=== PATIENT | male | born 1940 | race Caucasian/White ===

== ENCOUNTER → 2020-02-11 09:30 | Outpatient (CLI) | payer MEDICARE, OTHER, SELFPAY ==
--- NOTE | 2020-02-11 | DI.RAD.S_ITS ---
PROCEDURE: XR LUMBAR SPINE 2-3V INDICATIONS: M54.5 TECHNIQUE: 3 views of the lumbar spine were acquired. COMPARISON: [facility], , L-SPINE 2-3 VIEWS, 02/01/2007, 10:06. FINDINGS: Bones: No fracture or focal osseous destruction. Multilevel degenerative endplate sclerosis and spurring. Diffuse facet arthropathy. Moderate narrowing of L5-S1 disc space. There is mild narrowing of the remaining lumbar disc spaces. Dextroscoliosis centered at L2. Soft tissues: Scattered vascular calcifications seen in the aorta. IMPRESSION: Diffuse lumbar spondylosis and facet arthropathy, which is slightly progressed since the prior study. Interval progression in dextroscoliosis. Dictated by: Hermilo Sandhu M.D. on 02/11/2020 at 10:26 Approved by: Hermilo Sandhu M.D. on 02/11/2020 at 10:27
== END ==
PROVIDERS: Family Provider Family Medicine; PCP Student in an Organized Health Care Education/Training Program; Referring Provider Student in an Organized Health Care Education/Training Program; Visit Provider Student in an Organized Health Care Education/Training Program
DX: M54.5 Low back pain (principal); M47.816 Spondylosis without myelopathy or radiculopathy, lumbar region; M41.86 Other forms of scoliosis, lumbar region
CPT/HCPCS: 72100

== ENCOUNTER → 2020-10-31 10:07 | Outpatient (CLI) | payer MEDICARE, OTHER, SELFPAY ==
--- NOTE | 2020-10-31 10:14 | DI.RAD.S_ITS ---
PROCEDURE: XR CHEST 2V INDICATIONS: chest PAIN TECHNIQUE: 2 views of the chest were acquired. COMPARISON: None. FINDINGS: Surgical changes and devices: None. Lungs and pleura: Lungs are clear. No pleural effusions or pneumothorax. Mediastinum: Mediastinal contours are normal. Heart size is normal. Bones and chest wall: No suspicious bony abnormalities. Soft tissues appear unremarkable. IMPRESSION: No acute cardiopulmonary abnormality. Dictated by: Grant Dougherty M.D. on 10/31/2020 at 10:58 Approved by: Grant Dougherty M.D. on 10/31/2020 at 10:59
== END ==
PROVIDERS: PCP Student in an Organized Health Care Education/Training Program; Referring Provider Student in an Organized Health Care Education/Training Program; Visit Provider Student in an Organized Health Care Education/Training Program
DX: I20.9 Angina pectoris, unspecified (principal)
CPT/HCPCS: 71046

== ENCOUNTER → 2020-11-15 13:02 | Outpatient (CLI) | payer MEDICARE, OTHER, SELFPAY ==
[2020-11-15 14:29] LABS: COVID19 -Nasal RAPID Negative (Negative)
== END ==
PROVIDERS: PCP Student in an Organized Health Care Education/Training Program; Referring Provider Physician Assistant; Visit Provider Physician Assistant
DX: Z01.812 Encounter for preprocedural laboratory examination (principal); Z20.828 Contact with and (suspected) exposure to other viral communicable diseases
CPT/HCPCS: 87635; C9803

== ENCOUNTER → 2020-11-18 10:10 | Outpatient (CLI) | payer MEDICARE, OTHER, SELFPAY ==
--- NOTE | 2020-11-20 08:46 | DI.NM.S_ITS ---
DATE OF SERVICE: PROCEDURE: Pharmacological perfusion study. DATE OF STUDY: 11/18/2020 INDICATIONS: Chest discomfort with underlying hypertension and hyperlipidemia. RADIOPHARMACEUTICAL: 25.5 millicurie technetium-99m Myoview IV was injected at stress and 12.0 millicurie of technetium-99m Myoview IV was injected at rest. CARDIAC STRESS: The patient underwent exercise perfusion study under the supervision of an attending staff. The patient walked on Ean protocol for 6 minutes and 13 seconds, achieved 109 percent of target heart rate, mildly hypertensive blood pressure response. Baseline blood pressure 122/82. Peak blood pressure 162/100. The patient achieved 7 METS of workload and functional aerobic impairment of -18%. No chest pain during exercise. Baseline EKG revealed sinus rhythm. During exercise and recovery, patient had intermittent PVCs without any ventricular tachycardia. There were no obvious ischemic changes. RAW DATA: There was increased subdiaphragmatic activity. GATED STUDY: Resting LV ejection fraction 67 and stress LV ejection fraction 68%. Resting end-diastolic volume 122 mL. TID ratio 0.89, which is within normal limits. Lung/heart ratio 0.29, which is within normal limits. MYOCARDIAL PERFUSION SCAN: Stress supine, resting supine and stress prone images were compared to each other. The stress supine and resting supine images revealed large size, moderate to severely decreased perfusion of inferior wall extending into the inferior lateral wall, inferior apex, as well as basal inferior septum which got completely resolved during prone images suggestive of diaphragmatic tissue attenuation artifact. No convincing significant perfusion defect in the stress prone images. CONCLUSION: I will call this study likely a normal myocardial perfusion study with evidence of diaphragmatic tissue attenuation artifact which got resolved during prone images. Functional aerobic impairment -18%. Mildly hypertensive blood pressure response. No anginal symptoms. The patient has intermittent PVCs during exercise and recovery without any ventricular tachycardia. As far as perfusion scan is concerned, this is a low-risk myocardial perfusion scan. Jigar Leonardo - MADELEINE/natasha/ibeth doc#: [id number]/job#: [id number] dd: 11/18/2020 17:28:00 dt: 11/18/2020 18:45:00 DICTATING MD/COPIES TO: Kelsey Ann MD COPIES MNE: BONNY;
== END ==
PROVIDERS: PCP Student in an Organized Health Care Education/Training Program; Referring Provider Student in an Organized Health Care Education/Training Program; Visit Provider Student in an Organized Health Care Education/Training Program
DX: I20.9 Angina pectoris, unspecified (principal); R06.02 Shortness of breath
CPT/HCPCS: 78452; 93017; A9502

== ENCOUNTER → 2020-12-02 15:57 | Outpatient (CLI) | payer MEDICARE, OTHER, SELFPAY ==
--- NOTE | 2020-12-02 16:01 | DI.ECHO.S_ITS ---
[place] +---------+ [facility] +---------+ : : [address] : [address] : : : : [id number] : : : : Phone: [phone]+ Echocardiogram Report + + :Name: RAMÓN ROMERO Study Date: 12/02/2020 Height: 72 in : :[facility] Weight: 200 lb : : Gender: Male BSA: 2.1 m2 : :: 1940 Age: 80 yrs BP: 160/102 mmHg: :Reason For Study: ANGINA : :Ordering Physician: CARLEY, : :DRAKE Performed By: Essie Gutierrez : :Referring: DRAKE SPRINGER : + + Interpretation Summary Left ventricular systolic function appears normal with an estimated ejection fraction of 55 to 60% without any focal wall motion abnormality. Diastolic function could not be assessed. The right ventricle is at the upper limits of normal in size but has normal systolic function. Right ventricular systolic pressure cannot be estimated but CVP is likely around 3 mmHg. There is mild left atrial enlargement but normal right atrial size. The aortic valve appears anatomically normal but has mild aortic regurgitation. There are no other significant valvular abnormalities. The ascending aorta is mildly enlarged. The patient had heart rates of 48 to 64 bpm during the exam. Procedure: A two-dimensional transthoracic echocardiogram with color flow and Doppler was performed. The study quality was technically adequate. There is no prior echocardiogram noted for this patient. The patient was in sinus rhythm with heart rates between 49-64 bpm during the exam. The patient had occasional PVCs during the exam. Left Ventricle: The left ventricle is normal in size and wall thickness. Left ventricular systolic function appears normal without focal wall motion abnormalities. The ejection fraction is estimated to be 55-60%. Diastolic function could not be accurately assessed due to unobtainable data. Right Ventricle: The right ventricle is at the upper limits of normal in size. The right ventricular systolic function is normal. Atria: The left atrium is mildly dilated. Right atrial size is normal. There is no Doppler evidence for an interatrial shunt. Mitral Valve: The mitral valve is normal in structure and function. There is trace mitral regurgitation. Aortic Valve: The aortic valve is trileaflet. The aortic valve opens well. There is no aortic valve stenosis. There is mild aortic regurgitation. Tricuspid Valve: The tricuspid valve is normal in structure and function. There is trace tricuspid regurgitation. Pulmonary artery pressures cannot be estimated because of the lack of a measurable TR jet velocity but the IVC suggests a CVP of around 3 mmHg. Pulmonic Valve: The pulmonic valve leaflets are thin and pliable; valve motion is normal. There is trace pulmonic regurgitation. Great Vessels: The aortic root is normal size. The ascending aorta is mildly enlarged. The IVC is of normal diameter and collapses greater than 50% with a sniff. This suggests a low right atrial pressure of 3 mm Hg. Pericardium/ Pleura There is no pericardial effusion. There is no pleural effusion. MMode/2D Measurements & Calculations LVIDd: 4.8 cm LVOT diam: 2.2 cm LVIDs: 3.3 cm Ao root diam: 3.6 cm FS: 32.6 % asc Aorta Diam: 3.5 cm EPSS: 0.99 cm Ao Arch Diam (Prox Trans): 2.8 cm IVSd: 1.0 cm LVPWd: 0.90 cm LV orellana. diameter/BSA (cm/m^2): 2.3 LV sys. diameter/BSA (cm/m^2): 1.5 LA A2 area: 23.8 cm2 RA long axis: 6.2 cm LA A4 area: 24.8 cm2 RA area: 17.4 cm2 LA length (vol): 5.6 cm RA vol: 41.5 ml LA vol: 89.6 ml RA : 19.5 ml/m2 LA vol index: 42.1 ml/m2 IVC diam: 0.57 cm RVD1 (basal): 4.1 cm TAPSE: 2.6 cm Doppler Measurements & Calculations Ao V2 max: 113.4 cm/sec LVOT Max Juan Pablo: 74.1 cm/sec Ao V2 mean: 85.0 cm/sec LV V1 max P.2 mmHg Ao max P.1 mmHg LV V1 VTI: 17.9 cm Ao mean P.1 mmHg CALIXTO(I,D): 2.4 cm2 Ao V2 VTI: 29.8 cm CALIXTO(V,D): 2.6 cm2 sev ratio: 0.60 CALIXTO indexed to BSA (cm^2/m^2): 1.1 Med Peak E' Juan Pablo: 5.8 cm/sec PA V2 max: 53.8 cm/sec Lat Peak E' Juan Pablo: 4.4 cm/sec PA V2 mean: 34.3 cm/sec PA mean P.58 mmHg PA pr(Accel): -1.5 mmHg [facility] 70.3 ml Reading Physician:05:54 PM
== END ==
PROVIDERS: PCP Student in an Organized Health Care Education/Training Program; Referring Provider Student in an Organized Health Care Education/Training Program; Visit Provider Student in an Organized Health Care Education/Training Program
DX: I20.9 Angina pectoris, unspecified (principal); I35.1 Nonrheumatic aortic (valve) insufficiency; I77.89 Other specified disorders of arteries and arterioles
CPT/HCPCS: 93306

== ENCOUNTER → 2023-01-12 12:05 | Outpatient (CLI) | payer MEDICARE, OTHER, SELFPAY ==
[2023-01-12 13:11] LABS: Influenza A - CEPHEID Flu A NEGATIVE (NEGATIVE); Influenza B - CEPHEID Flu B NEGATIVE (NEGATIVE); Respiratory Syncytial Virus Negative (Negative)
[2023-01-12 13:19] LABS: COVID-19 CEPHEID 4-PLEX PCR Negative (Negative)
== END ==
PROVIDERS: PCP Student in an Organized Health Care Education/Training Program; Visit Provider Nurse Practitioner Family
DX: R05.1 Acute cough (principal); Z20.822 Contact with and (suspected) exposure to COVID-19
CPT/HCPCS: 0241U

== ENCOUNTER → 2023-02-14 08:32 | Outpatient (ROUT) | payer MEDICARE, OTHER, SELFPAY ==
[2023-02-14 08:38] LABS: Hematocrit 40.6 % (41-53); Hemoglobin 13.2 g/dL (13.5-17.5); Mean Corpuscular HGB Conc 32.6 % (30-36); Mean Corpuscular Hemoglobin 28.9 PG (26-34); Mean Corpuscular Volume 88.7 fL (80-100); Platelet Count 340 X10^3/uL (150-400); Red Blood Cell Count 4.58 X10^6/uL (4.5-5.9); Red Cell Distribution Width 14.8 % (11.6-14.8); White Blood Cell Count 17.8 X10^3/uL (4.5-11.0)
[2023-02-14 08:39] LABS: Add Manual Diff / Slide Review YES
[2023-02-14 08:49] LABS: Neutrophils Absolute Manual 3916 /uL (3000-5900); RBC Morphology Normal Morphology; Total Cells Counted 100
[2023-02-14 09:29] LABS: Alanine Aminotransferase 27 IU/L (<50); Albumin 3.9 g/dL (3.5-5.0); Albumin Globulin Ratio 1.2 (1.0-2.8); Alkaline Phosphatase 86 U/L (38-126); Aspartate Aminotransferase 24 IU/L (17-59); Bilirubin Total 0.6 mg/dL (0.2-1.3); Blood Urea Nitrogen 24 mg/dL (9-20); Calcium 8.9 mg/dL (8.4-10.2); Carbon Dioxide 26 mmol/L (22-32); Chloride 105 mmol/L (98-107); Estimated Glomerular Filt Rate 50 mL/min (>60); Globulin 3.3 g/dL (1.7-4.1); Glucose 99 mg/dL (80-110); HEMOLYSIS < 15 (0-50); Lactate Dehydrogenase 177 U/L (120-246); Potassium 4.4 mmol/L (3.4-5.1); Sodium 139 mmol/L (137-145); Total Protein 7.2 g/dL (6.3-8.2)
== END ==
PROVIDERS: PCP Student in an Organized Health Care Education/Training Program; Visit Provider Internal Medicine Medical Oncology
DX: D72.829 Elevated white blood cell count, unspecified (principal)
CPT/HCPCS: 80053; 83615; 85007; 85025

== ENCOUNTER → 2023-06-15 06:57 | Outpatient (CLI) | payer MEDICARE, OTHER, SELFPAY ==
--- NOTE | 2023-06-15 | DI.ECHO.S_ITS ---
[place] +---------+ Hospital +---------+ : : [address] : : : : [address] : : : : [id number] : : : : Phone: [phone] : [phone] +---------+ Echocardiogram Report + + :Name: RAMÓN ROMERO Study Date: 06/15/2023 Height: 72 in : :[facility] ReadingLocation: Weight: 190 lb : : Gender: Male BSA: 2.1 m2 : :: 1940 Age: 82 yrs BP: 121/79 mmHg: :Reason For Study: B-CELL LYMPHOMA : :Ordering Physician: RENETTA, : :MAGDA Performed By: Essie Gutierrez : :Referring: MAGDA JACKSON : + + Interpretation Summary This is a limited echo for wall motion and left ventricular systolic function. Normal sinus rhythm. Normal LV size and wall thickness. Normal wall motion and LV systolic function. Ejection fraction is 60-65%. Peak gobal longitudinal strain average is 23% (normal) Compared to prior study December 02, 2020, no significant changes have occurred. Procedure: Images were not obtained from all of the standard acoustic windows due to the limited scope of the study. The study quality was technically adequate. Comparison is made with the echocardiogram of 12/02/2020. The patient was in sinus rhythm with heart rates between 67-80 bpm during the exam. Left Ventricle: The left ventricle is normal in size and wall thickness. The ejection fraction is estimated to be 60-65%. Left ventricular global longitudinal strain average is -23.3%. Great Vessels: The IVC is of normal diameter and collapses greater than 50% with a sniff. This suggests a low right atrial pressure of 3 mm Hg. Pericardium/ Pleura There is no pericardial effusion. There is no pleural effusion. MMode/2D Measurements & Calculations LVIDd: 4.9 cm IVC diam: 0.61 cm LVIDs: 3.3 cm FS: 32.2 % EPSS: 1.4 cm IVSd: 0.88 cm LVPWd: 0.94 cm LV orellana. diameter/BSA (cm/m^2): 2.3 LV sys. diameter/BSA (cm/m^2): 1.6 Electronically signed by: Barb Kwon M.D. on Reading Physician:06/15/2023 04:06 PM
== END ==
PROVIDERS: PCP Registered Nurse; Referring Provider Internal Medicine Hematology & Oncology; Visit Provider Internal Medicine Hematology & Oncology
DX: C85.10 Unspecified B-cell lymphoma, unspecified site (principal); R22.32 Localized swelling, mass and lump, left upper limb
CPT/HCPCS: 93307; 93356

== ENCOUNTER 2024-01-06 12:57 | Emergency (ER) | payer MEDICARE, OTHER, SELFPAY ==
[2024-01-06] VITALS (10 sets, daily range): BP systolic 105–133; BP diastolic 58–82; PULSE 35–75; RESP 16–22; TEMP 36.3; O2SAT 96–98; BMI 22.5
--- NOTE | 2024-01-06 13:08 | DI.RAD.S_ITS ---
PROCEDURE: XR CHEST 1V INDICATIONS: chest pain TECHNIQUE: One view of the chest was acquired. COMPARISON: [facility], CR, XR CHEST 2V, 10/31/2020, 10:17. FINDINGS: Surgical changes and devices: Port-A-Cath from right-sided approach extends into the right atrium.. Lungs and pleura: Lungs are clear. No pleural effusions or pneumothorax. Mediastinum: Mediastinal contours appear normal. Heart size is normal. Bones and chest wall: No suspicious bony lesions. Overlying soft tissues appear unremarkable. IMPRESSION: No acute cardiopulmonary abnormality is seen. Port-A-Cath tip within the right atrium. Mild asymmetric elevation of the right hemidiaphragm present to a slightly lesser degree in 2020. Dictated by: Jonathan Whiteside M.D. on 01/06/2024 at 13:54 Approved by: Jonathan Whiteside M.D. on 01/06/2024 at 13:55
--- NOTE | 2024-01-06 13:17 | ED.ARRPALP ---
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 Patient is a poor historian. Patient states that his chemotherapy drugs give him tremors and he has been on primidone for his tremors. He was at his doctor's office today because his tremors are continuous. He was incidentally noted to have a low heart rate and he was sent to the ER for evaluation. Patient can not remember the names of any of his medications, stating ?they are all in my chart at [facility]? Related Data Home Medications Medication Instructions Recorded Confirmed loteprednol etabonate 0.5 % eye 0.5 ea OP BID ##0 06/01/12 03/01/23 ointment (Lotemax) dorzolamide-timolol (PF) 2 %-0.5 % 1 drp OPHTH BID ##0 09/19/17 03/01/23 eye drops in a dropperette (Cosopt (PF)) levothyroxine 50 mcg tablet 88 mcg PO QAM ##0 09/19/17 03/01/23 lisinopril 20 mg tablet 20 mg PO QDAY ##0 09/19/17 03/01/23 primidone 50 mg tablet 150 mg PO DAILY 02/09/22 03/01/23 cyclosporine 0.05 % eye drops in a 1 drp ophthalmic (eye) BID 11/30/22 03/01/23 dropperette (Restasis) latanoprost 0.005 % eye drops 1 drp ophthalmic (eye) BID 11/30/22 03/01/23 terbinafine HCl 250 mg tablet 250 mg DAILY 03/01/23 03/01/23 apixaban 5 mg tablet (Eliquis) 5 mg PO BID 01/06/24 01/06/24 Previous Rx's Medication Instructions Recorded pravastatin 20 mg tablet 20 mg PO Q DAY #90 tabs 08/08/13 benzonatate 100 mg capsule 100 mg PO BID PRN cough #20 caps 01/12/23 Allergies Allergy/AdvReac Type Severity Reaction Status Date / Time No Known Drug Allergies Allergy Unverified 01/12/23 12:06 Review of Systems Review of Systems Narrative: Negative except as noted above Patient History Social History Smoking Status: Former smoker Smoking Status: Former smoker Exam Initial Vital Signs Initial Vital Signs: Vital Signs Temperature 97.4 F L 01/06/24 13:00 Pulse Rate 35 L 01/06/24 13:00 Respiratory Rate 16 01/06/24 13:00 Blood Pressure 130/74 01/06/24 13:00 Pulse Oximetry 98 01/06/24 13:00 Oxygen Delivery Method Room Air 01/06/24 13:00 Const: Awake, alert, no acute distress, nontoxic, appears chronically unwell Cardiac: regular rate, regular rhythm RESP: unlabored, clear bilaterally, no wheezing GI: Atraumatic, soft, nontender, nondistended, no rebound, no guarding MSK: Atraumatic, full range of motion, pulses equal Skin: Warm, Dry, intact, no rashes Neuro: AO x3, CN II-XII grossly intact, moves all extremities, mild bilateral upper extremity tremor Course Orders Ordered: ED Orders 01/06/24 13:08 XR chest 1V Stat EKG-12 Lead Stat 01/06/24 13:23 Complete Blood Count AUTO DIFF Stat Comprehensive Metabolic Panel Stat Lipase Stat Magnesium Stat PTT Partial Thromboplastin Yuan Stat Prothrombin Time INR Stat Troponin & CK Cardiac Panel Stat Vital Signs Vital signs: Vital Signs - 8 hr 01/06/24 13:00 01/06/24 13:23 01/06/24 13:30 Temperature 97.4 F L Pulse Rate 35 L 68 Respiratory Rate 16 21 Blood Pressure 130/74 133/82 Pulse Oximetry 98 98 Oxygen Delivery Method Room Air 01/06/24 13:30 01/06/24 14:00 01/06/24 14:00 Temperature Pulse Rate 67 68 Respiratory Rate 21 Blood Pressure 117/58 L Pulse Oximetry 98 97 Oxygen Delivery Method 01/06/24 14:30 01/06/24 14:30 01/06/24 15:00 Temperature Pulse Rate 63 66 Respiratory Rate 19 21 Blood Pressure 105/68 Pulse Oximetry 96 96 Oxygen Delivery Method 01/06/24 15:00 01/06/24 15:30 Temperature Pulse Rate 62 Respiratory Rate 21 Blood Pressure 112/58 L Pulse Oximetry 98 Oxygen Delivery Method MDM - Arrhythmia/Palpitations Differential Diagnosis Differential diagnosis: Likely palpitations, anxiety and artial fibrillation Lab Data 01/06/24 13:23 01/06/24 13:23 Labs: Lab Results 01/06/24 Range/Units 13:23 WBC 10.0 (4.5-11.0) X10^3/uL RBC 4.83 (4.5-5.9) X10^6/uL Hgb 13.6 (13.5-17.5) g/dL Hct 41.4 (41-53) % MCV 85.7 (80-100) fL MCH 28.1 (26-34) PG MCHC 32.8 (30-36) % RDW 24.0 H (11.6-14.8) % Plt Count 361 (150-400) X10^3/uL Neut % (Auto) 78.4 H (50-75) % Lymph % (Auto) 7.8 L (25-40) % [place] % (Auto) 3.2 (3-14) % Eos % (Auto) 10.1 H (2-4) % Baso % (Auto) 0.5 (0-2) % Neut # (Auto) 7900 H (5417-5460) /uL Lymph # (Auto) 800 L (0950-5729) /uL [place] # (Auto) 300 (0-900) /uL Eos # (Auto) 1000 H (0-450) /uL Baso # (Auto) 100 (0-100) /uL RBC Morphology See below Anisocytosis 1+ H Ovalocytes 1+ H Schistocytes 1+ H PT 15.1 H (9.4-12.5) SECONDS INR 1.3 (0.9-1.3) APTT 35 (25.1-36.5) SECONDS Sodium 138 (137-145) mmol/L Potassium 3.6 (3.4-5.1) mmol/L Chloride 101 (98-107) mmol/L Carbon Dioxide 25 (22-32) mmol/L BUN 28 H (9-20) mg/dL Creatinine 1.08 (0.66-1.25) mg/dL Estimated GFR > 60 (>60) mL/min BUN/Creatinine Ratio 25.9 H (6-22) Glucose 60 L (80-110) mg/dL Calcium 9.2 (8.4-10.2) mg/dL Magnesium 2.2 (1.6-2.3) mg/dL Total Bilirubin 0.5 (0.2-1.3) mg/dL AST 53 (17-59) IU/L ALT 103 H (<50) IU/L Alkaline Phosphatase 69 (38-126) U/L Total Creatine Kinase < 20 L (55-170) U/L Troponin I < 0.012 (0.01-0.034) ng/mL Total Protein 7.1 (6.3-8.2) g/dL Albumin 4.0 (3.5-5.0) g/dL Globulin 3.1 (1.7-4.1) g/dL Albumin/Globulin Ratio 1.3 (1.0-2.8) Lipase 68 (23-300) U/L ECG Data Interpretation: normal sinus rhythm, bigeminy present, no ST-T wave changes, no STEMI MDM Narrative Medical decision making narrative: Patient incidentally found to have low heart rate. Heart rate dipped into the 30s while during triage. Patient otherwise asymptomatic, stating that he was in his usual state of health at his appointment. Call placed to [facility] for complete records Lab work reviewed, unremarkable. Electrolytes normal. Patient in bigeminy, however no true bradycardia noted. Call placed to Dr. Ann, who recommended referral to cardiology on outpatient basis and follow up with PCP for holter monitor Discharge Plan Departure Patient Disposition: Home Clinical Impression: Bigeminy Instructions: DI for Arrhythmias Activity Restrictions/Additional Instructions: Your EKG showed a rhythm called bigeminy. Your other enzymes are normal. Cardiology recommends follow up outpatient in their office and recommends that you also discuss with your primary care physician about possibly being outfitted with a Holter monitor to monitor your heart rhythms. Prescriptions: No Action benzonatate 100 mg capsule 100 mg PO BID PRN (Reason: cough) Qty: 20 0RF Lotemax 0.5 % ointment 0.5 ea OP BID Qty: 0 pravastatin 20 MG tablet 20 mg PO Q DAY Qty: 90 0RF lisinopril 20 MG tablet 20 mg PO QDAY Qty: 0 levothyroxine 50 MCG tablet 88 mcg PO QAM Qty: 0 dorzolamide-timolol (PF) [Cosopt (PF)] 2 %/0.5 % dropperette 1 drp OPHTH BID Qty: 0 primidone 50 mg Tablet 150 mg PO DAILY latanoprost 0.005 % Drops 1 drp OPHTHALMIC (EYE) BID cyclosporine [Restasis] 0.05 % Dropperette 1 drp OPHTHALMIC (EYE) BID terbinafine HCl 250 mg Tablet 250 mg DAILY Eliquis 5 mg tablet 5 mg PO BID Referrals: Carmen Naqvi ARNP [Primary Care Provider] - Kelsey Ann MD [Physician] - Stand Alone Forms: Patient Portal/API
--- NOTE | 2024-01-06 13:29 | PC.NURSE ---
Pr came to the emergency dept today because he was sent by his PCP for further evaluation. Pt was being seen in by his pcp for a medication re-check and states his pcp said he was bradycardic. EKG was done in pcp's office and pt was instructed to come to the ED. Pt denies feeling dizzy, lightheaded or any different than he did yesterday. Denies cp and sob. pt HR 63. a&ox4.
[2024-01-06 13:38] LABS: Add Manual Diff / Slide Review NO; Basophils Absolute Auto 100 /uL (0-100); Basophils Percent Auto 0.5 % (0-2); Eosinophils Absolute Auto 1000 /uL (0-450); Eosinophils Percent Auto 10.1 % (2-4); Hematocrit 41.4 % (41-53); Hemoglobin 13.6 g/dL (13.5-17.5); Lymphocytes Absolute Auto 800 /uL (1100-4500); Lymphocytes Percent Auto 7.8 % (25-40); Mean Corpuscular HGB Conc 32.8 % (30-36); Mean Corpuscular Hemoglobin 28.1 PG (26-34); Mean Corpuscular Volume 85.7 fL (80-100); Monocytes Absolute Auto 300 /uL (0-900); Monocytes Percent Auto 3.2 % (3-14); Neutrophils Absolute Auto 7900 /uL (1500-7000); Neutrophils Percent Auto 78.4 % (50-75); Platelet Count 361 X10^3/uL (150-400); Red Blood Cell Count 4.83 X10^6/uL (4.5-5.9)
[2024-01-06 13:43] LABS: INR 1.3 (0.9-1.3); Prothrombin Time 15.1 SECONDS (9.4-12.5)
[2024-01-06 13:46] LABS: PTT Partial Thromboplastin Tim 35 SECONDS (25.1-36.5)
[2024-01-06 13:49] LABS: Alanine Aminotransferase 103 IU/L (<50); Albumin Globulin Ratio 1.3 (1.0-2.8); Alkaline Phosphatase 69 U/L (38-126); Aspartate Aminotransferase 53 IU/L (17-59); BUN Creatinine Ratio 25.9 (6-22); Bilirubin Total 0.5 mg/dL (0.2-1.3); Blood Urea Nitrogen 28 mg/dL (9-20); Calcium 9.2 mg/dL (8.4-10.2); Carbon Dioxide 25 mmol/L (22-32); Chloride 101 mmol/L (98-107); Creatine Kinase < 20 U/L (55-170); Estimated Glomerular Filt Rate > 60 mL/min (>60); Globulin 3.1 g/dL (1.7-4.1); Glucose 60 mg/dL (80-110); HEMOLYSIS < 15 (0-50); Lipase 68 U/L (23-300); Magnesium 2.2 mg/dL (1.6-2.3); Potassium 3.6 mmol/L (3.4-5.1); Sodium 138 mmol/L (137-145); Total Protein 7.1 g/dL (6.3-8.2)
[2024-01-06 13:53] LABS: Anisocytosis 1+
[2024-01-06 13:55] LABS: Ovalocytes 1+; Schistocytes 1+
[2024-01-06 14:00] LABS: Troponin I < 0.012 ng/mL (0.01-0.034)
--- NOTE | 2024-01-06 15:20 | PC.NURSE ---
Pt ambulated to bathroom independently.
== END 2024-01-06 17:06 | disposition home or self-care (01) ==
PROVIDERS: Emergency Provider Emergency Medicine; PCP Registered Nurse
DX: I49.8 Other specified cardiac arrhythmias (principal); R07.9 Chest pain, unspecified
CPT/HCPCS: 36415; 71045; 80053; 82550; 83690; 83735; 84484; 85025; 85610; 85730; 93005; 93010; 99283; 99284

== ENCOUNTER 2024-02-03 17:52 | Inpatient (IN) | payer MEDICARE, OTHER, SELFPAY ==
[2024-02-03] VITALS (31 sets, daily range): BP systolic 87–110; BP diastolic 49–62; PULSE 62–85; RESP 14–26; TEMP 38.1–39.2; O2SAT 91–97; BMI 22.9
[2024-02-03] MEDS: SODIUM CHLORIDE 0.9% 1,000 ML 1000 ML IV ×2 (18:15→21:35)
--- NOTE | 2024-02-03 18:19 | DI.RAD.S_ITS ---
PROCEDURE: XR CHEST 1V INDICATIONS: chest pain TECHNIQUE: One view of the chest was acquired. COMPARISON: [facility], CR, XR CHEST 1V, 01/06/2024, 13:29. [facility], CR, XR CHEST 2V, 10/31/2020, 10:17. FINDINGS: Surgical changes and devices: A right port catheter terminates in the right atrium. Lungs and pleura: Low lung volumes. No dense consolidation or pleural effusion. Possible left lung base atelectasis or scarring. Mediastinum: Normal heart size Bones and chest wall: Degenerative changes. IMPRESSION: Low lung volumes on single view radiography, limiting evaluation. No acute abnormality. A right port catheter terminates in the right atrium. Dictated by: Maxwell Uriarte M.D. on 02/03/2024 at 19:36 Approved by: Maxwell Uriarte M.D. on 02/03/2024 at 19:37
--- NOTE | 2024-02-03 18:26 | PC.NURSE ---
Pt and report pt has had increased weakenss x2 weeks. with weakness being worse yesterday.
[2024-02-03 18:27] LABS: INR 1.5 (0.9-1.3); Prothrombin Time 17.3 SECONDS (9.4-12.5)
[2024-02-03 18:30] LABS: PTT Partial Thromboplastin Tim 36 SECONDS (25.1-36.5)
[2024-02-03 18:32] LABS: Alanine Aminotransferase 101 IU/L (<50); Albumin 3.4 g/dL (3.5-5.0); Albumin Globulin Ratio 1.1 (1.0-2.8); Alkaline Phosphatase 63 U/L (38-126); Aspartate Aminotransferase 52 IU/L (17-59); BUN Creatinine Ratio 19.3 (6-22); Bilirubin Total 0.4 mg/dL (0.2-1.3); Blood Urea Nitrogen 22 mg/dL (9-20); Calcium 8.6 mg/dL (8.4-10.2); Carbon Dioxide 26 mmol/L (22-32); Chloride 101 mmol/L (98-107); Creatine Kinase 21 U/L (55-170); Estimated Glomerular Filt Rate > 60 mL/min (>60); Globulin 3.2 g/dL (1.7-4.1); Glucose 105 mg/dL (80-110); HEMOLYSIS < 15 (0-50); Lipase 49 U/L (23-300); Magnesium 2.1 mg/dL (1.6-2.3); Potassium 4.6 mmol/L (3.4-5.1); Sodium 131 mmol/L (137-145); Total Protein 6.6 g/dL (6.3-8.2)
[2024-02-03 18:34] LABS: Hematocrit 37.5 % (41-53); Hemoglobin 12.4 g/dL (13.5-17.5); Mean Corpuscular Hemoglobin 26.6 PG (26-34); Mean Corpuscular Volume 80.6 fL (80-100); Platelet Count 486 X10^3/uL (150-400); Red Blood Cell Count 4.65 X10^6/uL (4.5-5.9); Red Cell Distribution Width 22.4 % (11.6-14.8); White Blood Cell Count 12.9 X10^3/uL (4.5-11.0)
[2024-02-03 18:35] LABS: Add Manual Diff / Slide Review YES
[2024-02-03 18:43] LABS: Troponin I < 0.012 ng/mL (0.01-0.034)
[2024-02-03 18:47] LABS: Lactate (Lactic Acid) 1.5 mmol/L (0.7-2.1)
--- NOTE | 2024-02-03 18:47 | ED_ITS ---
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 History obtained from at bedside, who states that for the last 2 weeks the patient has felt too poorly to receive his injections of Epkinly. He is become progressively weaker and weaker, and today he was not able to get out of bed without maximal assistance. is concerned that he is very dehydrated as he has eaten and drank very little today. Patient denies any complaints other than feeling very fatigued. Noted to be febrile on arrival. EMS brought patient in on supplemental oxygen, patient denies dyspnea. Room O2 93-94% Related Data Home Medications Medication Instructions Recorded Confirmed loteprednol etabonate 0.5 % eye 0.5 ea OP BID ##0 06/01/12 02/03/24 ointment (Lotemax) levothyroxine 50 mcg tablet 88 mcg PO QAM ##0 09/19/17 02/03/24 primidone 50 mg tablet 150 mg PO DAILY 02/09/22 02/03/24 cyclosporine 0.05 % eye drops in a 1 drp ophthalmic (eye) BID 11/30/22 02/03/24 dropperette (Restasis) latanoprost 0.005 % eye drops 1 drp ophthalmic (eye) BEDTIME 11/30/22 02/03/24 apixaban 5 mg tablet (Eliquis) 5 mg PO BID 01/06/24 02/03/24 carboxymethylcellulose 0.5 1 drp ophthalmic (eye) PRN PRN Eye 02/03/24 02/03/24 %-glycerin 0.9 % eye drops Irritation (Refresh Optive) carboxymethylcellulose sodium 1 % 1 drp ophthalmic (eye) BID 02/03/24 02/03/24 eye drops in a dropperette dorzolamide-timolol (PF) 2 %-0.5 % 1 drp ophthalmic (eye) BID 02/03/24 02/03/24 eye drops in a dropperette (Cosopt (PF)) pravastatin 20 mg tablet 20 mg PO BEDTIME 02/03/24 02/03/24 tamsulosin 0.4 mg capsule 0.4 mg PO BEDTIME 02/03/24 02/03/24 Allergies Allergy/AdvReac Type Severity Reaction Status Date / Time No Known Drug Allergies Allergy Verified 02/03/24 18:17 Review of Systems Review of Systems Narrative: otherwise negative. Patient History Social History household members: spouse Smoking Status: Former smoker alcohol intake: former Smoking Status: Former smoker Exam Initial Vital Signs Initial Vital Signs: Vital Signs Pulse Rate 84 02/03/24 18:00 Pulse Oximetry 95 02/03/24 18:00 Const: Awake, alert, no acute distress, ill-appearing, frail, debilitated, nontoxic Cardiac: regular rate, regular rhythm RESP: unlabored, clear bilaterally, no wheezing GI: Atraumatic, soft, nontender, nondistended, no rebound, no guarding MSK: Atraumatic, full range of motion, pulses equal Skin: Warm, Dry, intact, no rashes Neuro: AO x3, CN II-XII grossly intact, moves all extremities with equal strength Course Orders Ordered: ED Orders 02/03/24 21:27 CT angio chest PE protocol Stat Acetaminophen (Acetaminophen 325 Mg Tablet) 650 mg PO Q6H PRN PRN Reason: Fever/Mild Pain (1-3) Apixaban (Apixaban 5 Mg Tablet) 5 mg PO BID SALAZAR Cefepime HCl 1 gm/ Sodium (Chloride) 100 mls @ 200 mls/hr IV Q12H SALAZAR Sodium Chloride (Normal Saline 0.9%) 1,000 mls @ 100 mls/hr IV CONT SALAZAR Last Admin: 02/04/24 03:20 Dose: 100 mls/hr Documented By: ODALYSW Latanoprost (Latanoprost 0.005% Ophth 2.5 Ml) 1 drops EYE-BOTH BEDTIME SALAZAR Levothyroxine Sodium (Levothyroxine 50 Mcg Tablet) 88 mcg PO 0600 SALAZAR Naloxone HCl (Naloxone 0.4 Mg/Ml Vial) 0.2 mg IV Q2MIN PRN PRN Reason: Opiate Reversal Non-Formulary Medication (Carboxymethylcellulose Sodium) 1 drop ophthalmic (eye) BID SALAZAR Non-Formulary Medication (Carboxymethylcellulose-Glycern [Refresh Optive]) 1 drop ophthalmic (eye) PRN PRN PRN Reason: Eye Irritation Non-Formulary Medication (Cyclosporine [Restasis]) 1 drop OPHTHALMIC (EYE) BID SALAZAR Non-Formulary Medication (Dorzolamide-Timolol (Pf) [Cosopt (Pf)]) 1 drop OPHTHALMIC (EYE) BID SALAZAR Non-Formulary Medication (Loteprednol Etabonate [Lotemax]) 0.5 each OP BID SALAZAR Ondansetron HCl (Ondansetron 4 Mg/2 Ml Inj) 4 mg IV Q8HR PRN PRN Reason: Nausea And Vomiting Pravastatin Sodium (Pravastatin 20 Mg Tablet) 20 mg PO BEDTIME SALAZAR Primidone (Primidone 50 Mg Tablet) 150 mg PO DAILY SALAZAR Tamsulosin HCl (Tamsulosin 0.4 Mg Capsule) 0.4 mg PO BEDTIME SALAZAR Discontinued Medications Acetaminophen (Acetaminophen 325 Mg Tablet) 975 mg PO NOW ONE Stop: 02/03/24 20:00 Last Admin: 02/03/24 20:03 Dose: 975 mg Documented By: PRINCESS Aspirin (Aspirin 81 Mg Chew Tab) 324 mg PO NOW ONE Stop: 02/03/24 18:20 Last Admin: 02/03/24 18:24 Dose: Not Given Documented By: TORIE Cefepime HCl 2 gm/ Sodium (Chloride) 100 mls @ 200 mls/hr IV NOW ONE Stop: 02/03/24 18:32 Last Infusion: 02/03/24 20:03 Dose: Infused Documented By: Admin: 02/03/24 19:23 Dose: 200 mls/hr Documented By: TESSIE Sodium Chloride (Normal Saline 0.9%) 1,000 mls @ 1,000 mls/hr IV BOLUS ONE Stop: 02/03/24 19:30 Last Infusion: 02/03/24 20:04 Dose: Infused Documented By: Admin: 02/03/24 18:15 Dose: 1,000 mls/hr Documented By: TESSIE Sodium Chloride (Normal Saline 0.9%) 1,000 mls @ 1,000 mls/hr IV BOLUS ONE Stop: 02/03/24 22:05 Last Infusion: 02/03/24 22:40 Dose: Infused Documented By: Admin: 02/03/24 21:35 Dose: 1,000 mls/hr Documented By: PRINCESS Vital Signs Vital signs: Vital Signs - 8 hr 02/03/24 21:40 02/03/24 21:40 02/03/24 21:42 Pulse Rate 70 66 Respiratory Rate 20 Blood Pressure 87/49 L Pulse Oximetry 94 94 Oxygen Delivery Method Room Air 02/03/24 21:42 02/03/24 21:57 02/03/24 21:57 Pulse Rate 67 Respiratory Rate 21 Blood Pressure 87/54 L 92/55 L Pulse Oximetry 93 Oxygen Delivery Method Room Air 02/03/24 22:00 02/03/24 22:00 02/03/24 22:10 Pulse Rate 66 Respiratory Rate 18 Blood Pressure 92/55 L 91/51 L Pulse Oximetry 92 Oxygen Delivery Method 02/03/24 22:10 02/03/24 22:20 02/03/24 22:20 Pulse Rate 62 62 Respiratory Rate 20 22 Blood Pressure 94/53 L Pulse Oximetry 93 94 Oxygen Delivery Method 02/03/24 22:30 02/03/24 22:30 02/03/24 22:40 Pulse Rate 62 62 Respiratory Rate 18 21 Blood Pressure 94/55 L Pulse Oximetry 93 93 Oxygen Delivery Method 02/03/24 22:40 02/03/24 22:50 02/03/24 22:50 Pulse Rate 71 Respiratory Rate 24 Blood Pressure 96/53 L 110/61 Pulse Oximetry 94 Oxygen Delivery Method 02/03/24 23:00 02/03/24 23:00 02/03/24 23:10 Pulse Rate 66 63 Respiratory Rate 26 H 20 Blood Pressure 109/62 Pulse Oximetry 93 94 Oxygen Delivery Method 02/03/24 23:10 Pulse Rate Respiratory Rate Blood Pressure 108/58 L Pulse Oximetry Oxygen Delivery Method MDM - Weakness Lab Data 02/03/24 18:19 02/03/24 18:19 Labs: Lab Results 02/03/24 02/03/24 Range/Units 18:19 19:05 WBC 12.9 H (4.5-11.0) X10^3/uL RBC 4.65 (4.5-5.9) X10^6/uL Hgb 12.4 L (13.5-17.5) g/dL Hct 37.5 L (41-53) % MCV 80.6 (80-100) fL MCH 26.6 (26-34) PG MCHC 33.0 (30-36) % RDW 22.4 H (11.6-14.8) % Plt Count 486 H (150-400) X10^3/uL Neut % (Auto) Not Reportable Lymph % (Auto) Not Reportable [place] % (Auto) Not Reportable Eos % (Auto) Not Reportable Baso % (Auto) Not Reportable Lymph # (Auto) Not Reportable [place] # (Auto) Not Reportable Baso # (Auto) Not Reportable Total Counted 100 Seg Neutrophils % 55.0 (38-70) % Band Neutrophils % 9.0 H (3-7) % Lymphocytes % (Manual) 13.0 L (25-45) % Atypical Lymphs % 7.0 H ( - 0) % Monocytes % (Manual) 14.0 H (2-11) % Eosinophils % (Manual) 1.0 L (2-4) % Metamyelocytes % 1.0 H (-0) % Neutrophils # (Manual) 8256 H (9595-9518) /uL Smudge Cells 1+ H Plt Morphology Comment RBC Morphology See below Anisocytosis 1+ H Microcytosis 1+ H Ovalocytes 1+ H PT 17.3 H (9.4-12.5) SECONDS INR 1.5 H (0.9-1.3) APTT 36 (25.1-36.5) SECONDS Sodium 131 L (137-145) mmol/L Potassium 4.6 (3.4-5.1) mmol/L Chloride 101 (98-107) mmol/L Carbon Dioxide 26 (22-32) mmol/L BUN 22 H (9-20) mg/dL Creatinine 1.14 (0.66-1.25) mg/dL Estimated GFR > 60 (>60) mL/min BUN/Creatinine Ratio 19.3 (6-22) Glucose 105 (80-110) mg/dL Lactate 1.5 (0.7-2.1) mmol/L Calcium 8.6 (8.4-10.2) mg/dL Magnesium 2.1 (1.6-2.3) mg/dL Total Bilirubin 0.4 (0.2-1.3) mg/dL AST 52 (17-59) IU/L ALT 101 H (<50) IU/L Alkaline Phosphatase 63 (38-126) U/L Total Creatine Kinase 21 L (55-170) U/L Troponin I < 0.012 (0.01-0.034) ng/mL Total Protein 6.6 (6.3-8.2) g/dL Albumin 3.4 L (3.5-5.0) g/dL Globulin 3.2 (1.7-4.1) g/dL Albumin/Globulin Ratio 1.1 (1.0-2.8) Lipase 49 (23-300) U/L TSH 1.48 (0.47-4.68) uIU/mL Urine Color Yellow Urine Appearance Clear Urine pH 7.5 (4.5-8.0) Ur Specific [place] 1.010 (1.000-1.035) Urine Protein 1+ H (Negative) Urine Glucose (UA) Negative (Negative) g/dL Urine Ketones Negative (NEGATIVE) Urine Occult Blood Trace-intact (Negative) Urine Nitrate Negative (Negative) Urine Bilirubin Negative (NEGATIVE) Urine Urobilinogen 0.2 (0.2) E.U./dL Ur Leukocyte Esterase Negative (NEGATIVE) Urine RBC 1-5/hpf (0-5/HPF) Urine WBC 0-1/hpf (0-5/HPF) Ur Squamous Epith Cells 0-1 /hpf (0-5/HPF) Amorphous Sediment 1+ Urine Bacteria Occasional (0-1) (None) Urine Mucus 1+ H (Negative) Ur Culture Indicated? Cult not indicated Vol Urine Centrifuged 10ml (spun) Chlamy pneumoniae PCR Not detected (Not Detect) Adenovirus (PCR) Not detected (Not Detect) B.parapertussis DNA PCR Not detected (Not Detecte) Coronavirus OC43 (PCR) Not detected (Not Detect) Coronavirus HKU1 (PCR) Not detected (Not Detect) Coronavirus 229E (PCR) Not detected (Not Detect) SARS-CoV-2 (PCR) Not detected (Not Detecte) Coronavirus NL63 (PCR) Not detected (Not Detect) Human Metapneumovir PCR Not detected (Not Detect) Influenza Type A (PCR) Not detected (Not Detect) Influenza Type B (PCR) Not detected (Not Detect) M. pneumoniae (PCR) Not detected (Not Detect) Parainfluenza 1 (PCR) Not detected (Not Detect) Parainfluenza 2 (PCR) Not detected (Not Detect) Parainfluenza 3 (PCR) Not detected (Not Detect) Parainfluenza 4 (PCR) Not detected (Not Detect) RSV (PCR) Not detected (Not Detect) Entero/Rhino (PCR) Not detected (Not Detect) Imaging Data Chest x-ray: Radiologist Impression: PROCEDURE: XR CHEST 1V INDICATIONS: chest pain TECHNIQUE: One view of the chest was acquired. COMPARISON: [facility], CR, XR CHEST 1V, 01/06/2024, 13:29. [facility], CR, XR CHEST 2V, 10/31/2020, 10:17. FINDINGS: Surgical changes and devices: A right port catheter terminates in the right atrium. Lungs and pleura: Low lung volumes. No dense consolidation or pleural effusion. Possible left lung base atelectasis or scarring. Mediastinum: Normal heart size Bones and chest wall: Degenerative changes. IMPRESSION: Low lung volumes on single view radiography, limiting evaluation. No acute abnormality. A right port catheter terminates in the right atrium. Dictated by: Maxwell Uriarte M.D. on 02/03/2024 at 19:36 Approved by: Maxwell Uriarte M.D. on 02/03/2024 at 19:37 CT scan - head: Radiologist Impression: PROCEDURE: CT HEAD/BRAIN WO CON INDICATIONS: profound weakness, confusion worsening x 2 wks TECHNIQUE: Noncontrast 4.5 mm thick angled axial sections acquired from the foramen magnum to the vertex, with coronal and sagittal reformats. For radiation dose reduction, the following was used: automated exposure control, adjustment of mA and/or kV according to patient size. COMPARISON: None. FINDINGS: Image quality: Diagnostic. CSF spaces: Basal cisterns are patent. No extra-axial fluid collections. The ventricles are symmetric in size and shape. Brain: No intracranial bleeds or masses. There is cerebral volume loss for age, with resultant ventricular and sulcal prominence. There are extensive periventricular and deep white matter chronic small vessel ischemic changes. There is intracranial internal carotid artery atherosclerosis. Skull and face: Calvarium and visualized facial bones appear intact, without suspicious lesions. Sinuses: Visualized sinuses and mastoids are clear. IMPRESSION: No acute intracranial pathology. Age related volume loss and extensive white matter chronic ischemic changes. Dictated by: Josue Woodruff M.D. on 02/03/2024 at 20:27 Approved by: Josue Woodruff M.D. on 02/03/2024 at 20:27 CT scan - chest: Radiologist Impression: PROCEDURE: CT ANGIO CHEST PE PROTOCOL INDICATIONS: HYPOXIA, FEVER, HX CANCER TECHNIQUE: After the administration of intravenous contrast, 2 mm thick sections acquired from the pulmonary apices to the posterior costophrenic angles. 3-dimensional maximum intensity projection (MIP) coronal and sagittal reformats were then acquired through the thorax. For radiation dose reduction, the following was used: automated exposure control, adjustment of mA and/or kV according to patient size. COMPARISON: [facility], CT, CT CHEST ABDOMEN PELVIS WITH CONTRAST, 01/31/2024, 17:07. FINDINGS: Image quality: Diagnostic. Pulmonary arteries: Pulmonary arteries are normal in size, and demonstrate no intraluminal filling defects to suggest central pulmonary embolism. Lower Neck: No enlarged lymph nodes. Thyroid: No thyroid nodules which require sonographic follow up, per consensus guidelines. Axillae: Patient's known large left axillary heterogeneously enhancing mass now measures 11.5 x 6.8 cm in size series 5, image 44 compared to 9 x 6.5 cm in size on 01/31/2024 study. Chest Wall: Right-sided Port-A-Cath tip is in SVC. Bones: No suspicious bony lesion.. Lungs and Pleura: No pneumothorax or pleural effusions. There is interval development of small to moderate size airspace opacity in posterior medial aspect of right lung base. Smaller airspace opacity in posterior aspect of left lower lobe near left lung base is also seen. Previously described 5 mm left lower lobe nodule remains unchanged series 6, image 246. Previously described 4 mm right upper lobe nodule is also unchanged series 6, image 63. Scattered scarring/atelectasis in periphery of bilateral lung canela are seen. Heart: Heart size is normal. No pericardial effusion. Thoracic Vessels: No aortic aneurysm. Mediastinum and Pita: 1.2 cm precarinal node is seen series 5, image 69. 8 mm right hilar lymph node is seen series 5, image 77. Esophagus: No wall thickening. No hiatal hernia. Upper Abdomen: Prominent retroperitoneal lymph nodes in visualized upper abdomen is again seen. IMPRESSION: 1. No pulmonary embolus. No thoracic aortic aneurysm. 2. Interval development of small to moderate size right lower lobe infiltrate and smaller left lower lobe infiltrate as above. 3. Scattered atelectasis in periphery of bilateral lung caenla. Stable patient's known bilateral subcentimeter pulmonary nodules. 4. Interval increase in size of patient's known large left axillary mass. Stable appearing mildly enlarged mediastinal and right hilar lymph nodes as well as prominent retroperitoneal lymph nodes in visualized upper abdomen. Dictated by: Josue Woodruff M.D. on 02/03/2024 at 22:19 Approved by: Josue Woodruff M.D. on 02/03/2024 at 22:26 MDM Narrative Medical decision making narrative: Fever and profound generalized weakness in patient with lymphoma on chemotherapy. No focal neurologic deficit, patient is globally very fatigued and weak, sitting still in bed and making little effort to move. Based on patient's blood pressure and fever blood cultures, lactic acid, IV antibiotics ordered. Cefepime ordered for broad-spectrum coverage empirically. Arrived on supplemental O2, however saturations 93-94% on room air. Laboratory work is significant for WBC count 12.9, hemoglobin 12.4, sodium 131, potassium 4.6, creatinine 1.14, troponin undetectable. Lactate 1.5. Urinalysis negative for obvious signs of infection, respiratory panel negative. Chest x- ray shows no acute cardiopulmonary process, CT brain shows no findings either. Patient saturating 93-94% on room air, it was reported by EMS that the patient was requiring supplemental oxygen prior to arrival, this is not appear to be the case right now, but we will order a CT chest to further assess. CT chest shows no PE, but bilateral pneumonia is seen on CT when it was not an obvious on x-ray. Patient has received IV antibiotics already. Not currently requiring supplemental oxygen. Plan to admit for additional antibiotics. Discharge Plan Departure Patient Disposition: Home Clinical Impression: Sepsis, Pneumonia, Lymphoma
[2024-02-03 18:49] LABS: Neutrophils Absolute Manual 8256 /uL (3000-5900); Total Cells Counted 100
[2024-02-03 18:51] LABS: Anisocytosis 1+; Microcytosis 1+; Ovalocytes 1+
[2024-02-03 18:52] LABS: Smudge Cells 1+
--- NOTE | 2024-02-03 19:05 | PC.NURSE ---
Condom cath in place. Pt changed into gown and informed of plan of care. Swabbed for respiratory panel.
[2024-02-03 19:20] LABS: Appearance Urine UA CLEAR; Bilirubin Urine UA NEGATIVE (NEGATIVE); Color Urine UA YELLOW; Glucose Urine UA NEGATIVE (Negative); Ketones Urine UA NEGATIVE (NEGATIVE); Leukocyte Esterase Urine UA NEGATIVE (NEGATIVE); Nitrite Urine UA NEGATIVE (Negative); Occult Blood Urine UA TRACE-INTACT (Negative); Protein Urine UA 1+ (Negative); Urobilinogen Urine UA 0.2 E.U./dL (0.2); pH Urine UA 7.5 (4.5-8.0)
[2024-02-03] MEDS: CEFEPIME 2 GM in SODIUM CHLORIDE 0.9% 100 ML IV (19:23)
[2024-02-03 19:31] LABS: Bacteria Urine Occasional (0-1); RBC Urine 1-5/HPF (0-5/HPF); Squamous Epithelial Cell Urine 0-1 /HPF (0-5/HPF); Urine Volume 10mL (spun); WBC Urine 0-1/HPF (0-5/HPF)
[2024-02-03 19:32] LABS: Amorphous Sediment Urine 1+; Culture Indicated Urine Cult Not Indicated; Mucus Urine 1+ (Negative)
--- NOTE | 2024-02-03 19:41 | DI.CT.S_ITS ---
PROCEDURE: CT HEAD/BRAIN WO CON INDICATIONS: profound weakness, confusion worsening x 2 wks TECHNIQUE: Noncontrast 4.5 mm thick angled axial sections acquired from the foramen magnum to the vertex, with coronal and sagittal reformats. For radiation dose reduction, the following was used: automated exposure control, adjustment of mA and/or kV according to patient size. COMPARISON: None. FINDINGS: Image quality: Diagnostic. CSF spaces: Basal cisterns are patent. No extra-axial fluid collections. The ventricles are symmetric in size and shape. Brain: No intracranial bleeds or masses. There is cerebral volume loss for age, with resultant ventricular and sulcal prominence. There are extensive periventricular and deep white matter chronic small vessel ischemic changes. There is intracranial internal carotid artery atherosclerosis. Skull and face: Calvarium and visualized facial bones appear intact, without suspicious lesions. Sinuses: Visualized sinuses and mastoids are clear. IMPRESSION: No acute intracranial pathology. Age related volume loss and extensive white matter chronic ischemic changes. Dictated by: Josue Woodruff M.D. on 02/03/2024 at 20:27 Approved by: Josue Woodruff M.D. on 02/03/2024 at 20:27
[2024-02-03] MEDS: ACETAMINOPHEN 325 MG TABLET 975 MG PO (20:03)
[2024-02-03 20:08] LABS: Adenovirus Not Detected (Not Detect); B. parapertussis Not Detected (Not Detecte); Bordetella pertussis Not Detected (Not Detect); Chlamydophila pneumoniae Not Detected (Not Detect); Coronavirus 229E Not Detected (Not Detect); Coronavirus HKU1 Not Detected (Not Detect); Coronavirus NL 63 Not Detected (Not Detect); Coronavirus OC43 Not Detected (Not Detect); Human Metapneumovirus Not Detected (Not Detect); Human Rhinovirus/Enterovirus Not Detected (Not Detect); Influenza A Not Detected (Not Detect); Influenza B Not Detected (Not Detect); Mycoplasma pneumoniae Not Detected (Not Detect); Parainfluenza Virus 1 Not Detected (Not Detect); Parainfluenza Virus 2 Not Detected (Not Detect); Parainfluenza Virus 3 Not Detected (Not Detect); Parainfluenza Virus 4 Not Detected (Not Detect); Respiratory Syncytial Virus Not Detected (Not Detect); SARS- CoV-2 Not Detected (Not Detecte)
[2024-02-03 20:13] LABS: Thyroid Stimulating Hormone 1.48 uIU/mL (0.47-4.68)
--- NOTE | 2024-02-03 21:27 | DI.CT.S_ITS ---
PROCEDURE: CT ANGIO CHEST PE PROTOCOL INDICATIONS: HYPOXIA, FEVER, HX CANCER TECHNIQUE: After the administration of intravenous contrast, 2 mm thick sections acquired from the pulmonary apices to the posterior costophrenic angles. 3-dimensional maximum intensity projection (MIP) coronal and sagittal reformats were then acquired through the thorax. For radiation dose reduction, the following was used: automated exposure control, adjustment of mA and/or kV according to patient size. COMPARISON: [facility], CT, CT CHEST ABDOMEN PELVIS WITH CONTRAST, 01/31/2024, 17:07. FINDINGS: Image quality: Diagnostic. Pulmonary arteries: Pulmonary arteries are normal in size, and demonstrate no intraluminal filling defects to suggest central pulmonary embolism. Lower Neck: No enlarged lymph nodes. Thyroid: No thyroid nodules which require sonographic follow up, per consensus guidelines. Axillae: Patient's known large left axillary heterogeneously enhancing mass now measures 11.5 x 6.8 cm in size series 5, image 44 compared to 9 x 6.5 cm in size on 01/31/2024 study. Chest Wall: Right-sided Port-A-Cath tip is in SVC. Bones: No suspicious bony lesion.. Lungs and Pleura: No pneumothorax or pleural effusions. There is interval development of small to moderate size airspace opacity in posterior medial aspect of right lung base. Smaller airspace opacity in posterior aspect of left lower lobe near left lung base is also seen. Previously described 5 mm left lower lobe nodule remains unchanged series 6, image 246. Previously described 4 mm right upper lobe nodule is also unchanged series 6, image 63. Scattered scarring/atelectasis in periphery of bilateral lung canela are seen. Heart: Heart size is normal. No pericardial effusion. Thoracic Vessels: No aortic aneurysm. Mediastinum and Pita: 1.2 cm precarinal node is seen series 5, image 69. 8 mm right hilar lymph node is seen series 5, image 77. Esophagus: No wall thickening. No hiatal hernia. Upper Abdomen: Prominent retroperitoneal lymph nodes in visualized upper abdomen is again seen. IMPRESSION: 1. No pulmonary embolus. No thoracic aortic aneurysm. 2. Interval development of small to moderate size right lower lobe infiltrate and smaller left lower lobe infiltrate as above. 3. Scattered atelectasis in periphery of bilateral lung canela. Stable patient's known bilateral subcentimeter pulmonary nodules. 4. Interval increase in size of patient's known large left axillary mass. Stable appearing mildly enlarged mediastinal and right hilar lymph nodes as well as prominent retroperitoneal lymph nodes in visualized upper abdomen. Dictated by: Josue Woodruff M.D. on 02/03/2024 at 22:19 Approved by: Josue Woodruff M.D. on 02/03/2024 at 22:26
[2024-02-04] VITALS (9 sets, daily range): BP systolic 89–152; BP diastolic 51–85; PULSE 62–109; RESP 18–22; TEMP 36.1–38.5; O2SAT 92–96
[2024-02-04] MEDS: SODIUM CHLORIDE 0.9% 1,000 ML 100 ML IV ×2 (03:20→16:35)
--- NOTE | 2024-02-04 05:36 | PM.HP.1 ---
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 Started off as generalized weakness with decreasing ability to handle daily activities to the point where patient was not able to get up or stand up or do even basic activity. Needs maximal assistance to get out of the bed and was brought to the emergency room eventually by his for concerns of dehydration. In the ED was noted to be hypotensive with a systolic in the 90s. Chest x-ray and subsequently CT of the chest showed small to moderate size right lower lobe infiltrate and small left lower lobe infiltrate. Patient was initiated on cefepime and admitted for further evaluation FORMERLY [facility], [facility] Social History household members: spouse Smoking Status: Former smoker alcohol intake: former Meds Home Medications and Allergies Home Medications Medication Instructions Recorded Confirmed Type loteprednol etabonate 0.5 % eye 0.5 ea OP BID ##0 06/01/12 02/03/24 History ointment (Lotemax) levothyroxine 50 mcg tablet 88 mcg PO QAM ##0 09/19/17 02/03/24 History primidone 50 mg tablet 150 mg PO DAILY 02/09/22 02/03/24 History cyclosporine 0.05 % eye drops in a 1 drp ophthalmic (eye) BID 11/30/22 02/03/24 History dropperette (Restasis) latanoprost 0.005 % eye drops 1 drp ophthalmic (eye) BEDTIME 11/30/22 02/03/24 History apixaban 5 mg tablet (Eliquis) 5 mg PO BID 01/06/24 02/03/24 History carboxymethylcellulose 0.5 1 drp ophthalmic (eye) PRN PRN Eye 02/03/24 02/03/24 History %-glycerin 0.9 % eye drops Irritation (Refresh Optive) carboxymethylcellulose sodium 1 % 1 drp ophthalmic (eye) BID 02/03/24 02/03/24 History eye drops in a dropperette dorzolamide-timolol (PF) 2 %-0.5 % 1 drp ophthalmic (eye) BID 02/03/24 02/03/24 History eye drops in a dropperette (Cosopt (PF)) pravastatin 20 mg tablet 20 mg PO BEDTIME 02/03/24 02/03/24 History tamsulosin 0.4 mg capsule 0.4 mg PO BEDTIME 02/03/24 02/03/24 History Allergies Allergy/AdvReac Type Severity Reaction Status Date / Time No Known Drug Allergies Allergy Verified 02/03/24 18:17 Review of Systems Review of Systems Narrative: A 12 point review of system is negative unless otherwise stated in the history of present illness Exam Vital Signs (past 8 hours): - 02/03/24 21:40 02/03/24 21:40 02/03/24 21:42 Temperature Pulse Rate 70 66 Respiratory Rate 20 Blood Pressure 87/49 L Pulse Oximetry 94 94 Oxygen Delivery Method Room Air Oxygen Flow Rate Fraction of Inspired Oxygen 02/03/24 21:42 02/03/24 21:57 02/03/24 21:57 Temperature Pulse Rate 67 Respiratory Rate 21 Blood Pressure 87/54 L 92/55 L Pulse Oximetry 93 Oxygen Delivery Method Room Air Oxygen Flow Rate Fraction of Inspired Oxygen 02/03/24 22:00 02/03/24 22:00 02/03/24 22:10 Temperature Pulse Rate 66 Respiratory Rate 18 Blood Pressure 92/55 L 91/51 L Pulse Oximetry 92 Oxygen Delivery Method Oxygen Flow Rate Fraction of Inspired Oxygen 02/03/24 22:10 02/03/24 22:20 02/03/24 22:20 Temperature Pulse Rate 62 62 Respiratory Rate 20 22 Blood Pressure 94/53 L Pulse Oximetry 93 94 Oxygen Delivery Method Oxygen Flow Rate Fraction of Inspired Oxygen 02/03/24 22:30 02/03/24 22:30 02/03/24 22:40 Temperature Pulse Rate 62 62 Respiratory Rate 18 21 Blood Pressure 94/55 L Pulse Oximetry 93 93 Oxygen Delivery Method Oxygen Flow Rate Fraction of Inspired Oxygen 02/03/24 22:40 02/03/24 22:50 02/03/24 22:50 Temperature Pulse Rate 71 Respiratory Rate 24 Blood Pressure 96/53 L 110/61 Pulse Oximetry 94 Oxygen Delivery Method Oxygen Flow Rate Fraction of Inspired Oxygen 02/03/24 23:00 02/03/24 23:00 02/03/24 23:10 Temperature Pulse Rate 66 63 Respiratory Rate 26 H 20 Blood Pressure 109/62 Pulse Oximetry 93 94 Oxygen Delivery Method Oxygen Flow Rate Fraction of Inspired Oxygen 02/03/24 23:10 02/03/24 23:20 02/03/24 23:20 Temperature Pulse Rate 73 Respiratory Rate 23 Blood Pressure 108/58 L 96/51 L Pulse Oximetry 92 Oxygen Delivery Method Room Air Oxygen Flow Rate Fraction of Inspired Oxygen 02/03/24 23:30 02/03/24 23:30 02/03/24 23:40 Temperature Pulse Rate 74 75 Respiratory Rate 23 25 H Blood Pressure 104/57 L Pulse Oximetry 91 92 Oxygen Delivery Method Oxygen Flow Rate Fraction of Inspired Oxygen 02/03/24 23:40 02/03/24 23:50 02/03/24 23:50 Temperature Pulse Rate 73 Respiratory Rate 23 Blood Pressure 96/59 L 92/60 Pulse Oximetry 92 Oxygen Delivery Method Oxygen Flow Rate Fraction of Inspired Oxygen 02/04/24 00:00 02/04/24 00:00 02/04/24 02:00 Temperature Pulse Rate 70 Respiratory Rate 22 Blood Pressure 89/54 L Pulse Oximetry 92 Oxygen Delivery Method Room Air Room Air Oxygen Flow Rate 0 Fraction of Inspired Oxygen 21 02/04/24 04:57 Temperature 99.2 F Pulse Rate 68 Respiratory Rate 20 Blood Pressure 126/67 Pulse Oximetry 96 Oxygen Delivery Method Oxygen Flow Rate 0 Fraction of Inspired Oxygen Fraction of Inspired Oxygen 21 Oxygen Delivery Method Room Air Oxygen Flow Rate 0 Narrative Exam Narrative: Air entry decreased bilaterally at the bases right greater than the left. Patient is awake alert and able to give good history. Objective Labs 02/03/24 18:19 02/03/24 18:19 Labs: Laboratory Results - last 24 hr 02/03/24 02/03/24 18:19 19:05 WBC 12.9 H RBC 4.65 Hgb 12.4 L Hct 37.5 L MCV 80.6 MCH 26.6 MCHC 33.0 RDW 22.4 H Plt Count 486 H Neut % (Auto) Not Reportable Lymph % (Auto) Not Reportable [place] % (Auto) Not Reportable Eos % (Auto) Not Reportable Baso % (Auto) Not Reportable Lymph # (Auto) Not Reportable [place] # (Auto) Not Reportable Baso # (Auto) Not Reportable Total Counted 100 Seg Neutrophils % 55.0 Band Neutrophils % 9.0 H Lymphocytes % (Manual) 13.0 L Atypical Lymphs % 7.0 H Monocytes % (Manual) 14.0 H Eosinophils % (Manual) 1.0 L Metamyelocytes % 1.0 H Neutrophils # (Manual) 8256 H Smudge Cells 1+ H Plt Morphology Comment RBC Morphology See below Anisocytosis 1+ H Microcytosis 1+ H Ovalocytes 1+ H PT 17.3 H INR 1.5 H APTT 36 Sodium 131 L Potassium 4.6 Chloride 101 Carbon Dioxide 26 BUN 22 H Creatinine 1.14 Estimated GFR > 60 BUN/Creatinine Ratio 19.3 Glucose 105 Lactate 1.5 Calcium 8.6 Magnesium 2.1 Total Bilirubin 0.4 AST 52 ALT 101 H Alkaline Phosphatase 63 Total Creatine Kinase 21 L Troponin I < 0.012 Total Protein 6.6 Albumin 3.4 L Globulin 3.2 Albumin/Globulin Ratio 1.1 Lipase 49 TSH 1.48 Urine Color Yellow Urine Appearance Clear Urine pH 7.5 Ur Specific [place] 1.010 Urine Protein 1+ H Urine Glucose (UA) Negative Urine Ketones Negative Urine Occult Blood Trace-intact Urine Nitrate Negative Urine Bilirubin Negative Urine Urobilinogen 0.2 Ur Leukocyte Esterase Negative Urine RBC 1-5/hpf Urine WBC 0-1/hpf Ur Squamous Epith Cells 0-1 /hpf Amorphous Sediment 1+ Urine Bacteria Occasional (0-1) Urine Mucus 1+ H Ur Culture Indicated? Cult not indicated Vol Urine Centrifuged 10ml (spun) Chlamy pneumoniae PCR Not detected Adenovirus (PCR) Not detected B.parapertussis DNA PCR Not detected Coronavirus OC43 (PCR) Not detected Coronavirus HKU1 (PCR) Not detected Coronavirus 229E (PCR) Not detected SARS-CoV-2 (PCR) Not detected Coronavirus NL63 (PCR) Not detected Human Metapneumovir PCR Not detected Influenza Type A (PCR) Not detected Influenza Type B (PCR) Not detected M. 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 Started off as generalized weakness with decreasing ability to handle daily activities to the point where patient was not able to get up or stand up or do even basic activity. Needs maximal assistance to get out of the bed and was brought to the emergency room eventually by his for concerns of dehydration. In the ED was noted to be hypotensive with a systolic in the 90s. Chest x-ray and subsequently CT of the chest showed small to moderate size right lower lobe infiltrate and small left lower lobe infiltrate. Patient was initiated on cefepime and admitted for further evaluation Pneumonia in the setting of hypotension and hypoxemia. Oxygen supplementation and pending cultures, continue with IV cefepime for now. Monitor closely Generalized weakness with gait instability likely secondary to the underlying infection and further complicated by the cancer. Treat the reversible factors including infection. 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 Ongoing follow-up by oncology in outpatient setting currently on Epcortimab. Trend cell lines and electrolytes closely Deep vein thrombosis of the right lower extremity. Currently on Eliquis which will be continued Essential tremor. Resume the home primidone Plan of care discussed with the patient and his spouse at the bedside. Patient is full code for now Patient is being admitted under inpatient status Patient was evaluated with the help of video communication device. Location of the provider is [facility]. Time spent is 15 minutes Quality VTE Deep Vein Thrombosis/Pulmonary Embolism Present on Admission: No
[2024-02-04] MEDS: LEVOTHYROXINE 88 MCG TABLET PO (07:03)
--- NOTE | 2024-02-04 07:52 | PC.NURSE ---
Admit/NOC Shift Note- Patient arrived to room via stretcher frfom ERE. Slider board used to transfer patient to bed. Patient A&O and able to make needs known to staff. Patient oriented to bed and bed controls, room, lights, phone, menu, bathroom, and call hightower/TV remote. Patient agrees to call for assistance. No complaints of N?V or pain at this time. Safety measures in place. Bed alarm activated. Call hightower and phone within reach.
[2024-02-04] MEDS: PRIMIDONE 50 MG TABLET 150 MG PO (09:45)
[2024-02-04] MEDS: APIXABAN 5 MG TABLET PO ×2 (09:46→20:12)
[2024-02-04] MEDS: CEFEPIME 1 GM in SODIUM CHLORIDE 0.9% 100 ML IV ×2 (09:46→21:26)
[2024-02-04 12:08] LABS: Alanine Aminotransferase 75 IU/L (<50); Albumin 2.4 g/dL (3.5-5.0); Albumin Globulin Ratio 0.8 (1.0-2.8); Alkaline Phosphatase 36 U/L (38-126); Aspartate Aminotransferase 40 IU/L (17-59); BUN Creatinine Ratio 20.3 (6-22); Bilirubin Total 0.6 mg/dL (0.2-1.3); Blood Urea Nitrogen 16 mg/dL (9-20); Carbon Dioxide 20 mmol/L (22-32); Chloride 109 mmol/L (98-107); Estimated Glomerular Filt Rate > 60 mL/min (>60); Globulin 2.9 g/dL (1.7-4.1); Glucose 103 mg/dL (80-110); Magnesium 1.7 mg/dL (1.6-2.3); Phosphorous 2.4 mg/dL (2.3-3.7); Potassium 3.6 mmol/L (3.4-5.1); Sodium 132 mmol/L (137-145); Total Protein 5.3 g/dL (6.3-8.2)
[2024-02-04] MEDS: ACETAMINOPHEN 325 MG TABLET 650 MG PO ×2 (12:08→21:30)
[2024-02-04 12:10] LABS: HEMOLYSIS 78 (0-50)
[2024-02-04 12:16] LABS: NT-proBNP (BNP-Adult 18+) 1380 pg/mL (<450)
--- NOTE | 2024-02-04 12:20 | CM.DANOTE ---
DCP Assessment Note Pt is a 83yo M, resident [facility], who lives at home with his spouse, Piper ( ). Pt has a hx of lymphoma and presented with progressing weakness and lethargy. PCP: Kiah Naqvi Payer: Medicare Reviewed chart and team rounds for pt's medical status and initial discharge needs. MANAGER OFFICE SERVICES met w/patient at bedside; introduced self and role. Pt was awake, able to verbalize preferences and some history. Pt expressed needing help to get up and go to the bathroom; can't do a lot on my own. Pt reports spouse, Piper, should be arriving at hospital soon. MANAGER OFFICE SERVICES discussed discharge plans, inquired about preferences or history with SNF/HH. Pt reports being admitted at [facility] rehab in the past. Plan: Awaiting PT/OT consult and recommendation for evolving discharge plans. MANAGER OFFICE SERVICES will attempt to coordinate discharge plans further with pt spouse. CM team will plan to follow clinical course closely for assessment of need and coordination of discharge plan. SATISH Barr Discharge Planning/Care Management CM Discharge Assessment Start: 02/04/24 12:00 Freq: Status: Active Protocol: Document 02/04/24 12:01 MW (Rec: 02/04/24 12:19 MW [id number]) Discharge Planning Assessment Assigned Burlap Worker SATISH Oliver DPOA/Assigned Designee Name Piper Leonardo, Spouse Contact Information [phone] Advance Directives? Yes Advance Directives on File Yes History Provided By Patient,Medical Record Has Patient been admitted in last 30 No days? Prior Living Arrangements House Household Members spouse Type of transporation used prior to Relies on Others admit Independent with ADL's No Is patient alert and oriented? Yes Needs Assistance With Bathing,Toileting,Home Chores / Shopping Comment Pending recommendation from PT /OT evaluations, stabilization with nutrition. Inpatient Status as of 02/03/24 SNF/HH Preference Pt reports a previous admission to [facility] SNF in October. Did not state any preference at this time. Whiteboard Updated in Patient Room with Yes name and ext. # of Burlap Worker Please Provide Date Initial DC 02/04/24 Assessment Was Performed Next Review Type Continued Stay Review
[2024-02-04 12:56] LABS: Hematocrit 32.5 % (41-53); Hemoglobin 10.7 g/dL (13.5-17.5); Mean Corpuscular Hemoglobin 26.6 PG (26-34); Mean Corpuscular Volume 80.6 fL (80-100); Platelet Count 404 X10^3/uL (150-400); Red Blood Cell Count 4.03 X10^6/uL (4.5-5.9); Red Cell Distribution Width 21.8 % (11.6-14.8); White Blood Cell Count 9.5 X10^3/uL (4.5-11.0)
[2024-02-04 12:57] LABS: Add Manual Diff / Slide Review YES
[2024-02-04 14:22] LABS: Neutrophils Absolute Manual 6080 /uL (3000-5900); Total Cells Counted 100
--- NOTE | 2024-02-04 14:22 | PT.IIE ---
Current Diagnoses Pneumonia, unspecified organism (02/03/24) Physical Therapy Inpatient Evaluation/Re-Eval M1 PT/OT-IP Prior Functional Status Start: 02/04/24 13:03 Freq: NEEDED Status: Active Protocol: Document 02/04/24 13:59 AMB (Rec: 02/04/24 14:21 AMB [id number]) Medical Review Prior Functional Status Mobility and Gait Used a cane when going to check the mail, stated did not use a walker in the house baseline but does have a 4WW Social History Household Members spouse Living Arrangements House Number of Floors (Floors) Two Floors Number of Stairs To Enter/Railing? 2 steps to enter without railings Home Equipment Four Wheel Walker,Straight Cane Employment Status Retired Additional Social History Comment Bedroom is up a full flight of stairs M2 PT-IP Current Condition Start: 02/04/24 13:03 Freq: NEEDED Status: Active Protocol: Document 02/04/24 13:59 AMB (Rec: 02/04/24 14:21 AMB [id number]) Physical Therapy Current Condition Current Condition Evaluation Date 02/04/24 Treatment Diagnosis weakness, PN, CLLL Onset Date 02/03/24 M3 PT-IP Subjective Start: 02/04/24 13:03 Freq: NEEDED Status: Active Protocol: Document 02/04/24 13:59 AMB (Rec: 02/04/24 14:21 AMB [id number]) Subjective Physical Therapy Visit Type Type Initial Evaluation Visit Start Time 13:15 Visit Stop Time 13:45 Physical Therapy Visit Comments Patient Comments Pt is tired but willing to work with PT M4 PT-IP Mobility and Gait Start: 02/04/24 13:03 Freq: NEEDED Status: Active Protocol: Document 02/04/24 13:59 AMB (Rec: 02/04/24 14:21 AMB [id number]) PT-Bed Mobility Assessment Rolling Type of Rolling Roll to Left Level of Assist Minimal Assistance Supine to Sit Supine to Sit Contact Guard Assistance,1 Person Assistance,Head of Bed Elevated,Bedrails Sit to Supine Sit to Supine Minimal Assistance,1 Person Assistance,Head of Bed Elevated,Bedrails Scooting Scooting to Edge of Bed Standby Assistance PT-Transfer Assessment Sit to and From Stand Sit to and from Stand Contact Guard Assistance,1 Person Assistance,Use of Upper Extremities Equipment Transfer Assistive Device Bed Rail,Gait Belt,Front Wheeled Walker Transfers Transfer Destination Bed Transfer Technique Stand Step Pivot Transfer Ability Level of Assist Contact Guard Assistance Comments Mobility Comments Jigar needed Pramod for most bed mobility, especially getting back to bed after he was fatigued. His states that his function is quite variable at home, discussed energy conservation but it does sound like all bedrooms are upstairs. Gait Assessment Gait Gait Assistance Required: Contact Guard Assist,1 Person Assist Distance (Feet) 25 Assistive Devices Assistive Device Gait Belt,Front Wheeled Walker Gait Deviations General Gait Pattern Decreased Stride Length, Decreased Feet Clearance, Flexed Trunk Factors Limiting Gait Function Factors Limiting Gait Function Decreased Activity Tolerance, Decreased Strength,Poor Balance Comments Gait Comments Heavy use of UEs on FWW, ambulated 25 feet around room before getting fatigued to the point that he needed to sit back down on his bed. PT-Balance Assessment Sitting Balance and Reactions Static Sitting Balance Ability Good Dynamic Sitting Balance Ability Good Standing Balance and Reactions Static Standing Balance Ability Fair Dynamic Standing Balance Ability Poor M5 PT-IP Objective Assessments Start: 02/04/24 13:03 Freq: NEEDED Status: Active Protocol: Document 02/04/24 13:59 AMB (Rec: 02/04/24 14:21 AMB [id number]) Gross Range of Motion Lower Extremity ROM Assessment Within Functional Limits Strength Lower Extremity Strength Assessment Bilaterally Impaired Hip 3 Knee 3 Ankle 3 M6 PT-IP Treatment Start: 02/04/24 13:03 Freq: NEEDED Status: Active Protocol: Document 02/04/24 13:59 AMB (Rec: 02/04/24 14:21 AMB [id number]) Physical Therapy Treatment Exercises Exercises Ankle Pumps,Heel Slides Education Education Provided Safety M7 PT-IP Assessment and Plan Start: 02/04/24 13:03 Freq: NEEDED Status: Active Protocol: Document 02/04/24 13:59 AMB (Rec: 02/04/24 14:21 AMB [id number]) PT Summary Assessment and Plan Potential Rehabilitation Potential Good Status of Condition at Evaluation Evolving Summary Impairments Strength,Balance,Gait,Activity Tolerance Assessment Summary Jigar was admitted for pneumonia in the context of chronic lymphocytic luekemia lymphoma and a worsening ability to move around his house. He needed Pramod for most transfers and bed mobility and fatigued after walking only 25 feet around his hospital room. His was present for the end of the PT session and she agreed he needs to be able to move more and with less physical assistance if he is to discharge home. Depending on the speed of his recovery, it is possible that he could d /c home, but if his physical functioning remains similar to today then he would certainly need to go to SNF, and this conversation was started today with Jigar and his . Goals Bed Mobility Goal Standby Assistance Transfer Goal Standby Assistance Gait Goal Contact Guard Assistance Gait Distance 150 Other Goals Jigar would need to do a full flight of stairs if he discharges home. Days to Meet Goals 7 Frequency of Treatment Frequency Of Treatment Once a Day Treatment Plan Physical Therapy Treatment Plan Bed Mobility Training,Transfer Training,Gait Training, Therapeutic Exercise,Balance Retraining Other Recommendations and Next Treatment Improve gait tolerance, give Focus bed exercises, consider stair training if fatigue is decreasing Recommendations To Nursing Amount of Assist Needed 2 Person Assist Discharge Recommendations PT Discharge Recommendations Home with 20/06 Assist Available,Home Health,SNF Rehab Transportation Needs at Discharge Private Vehicle
[2024-02-04 14:23] LABS: Anisocytosis 1+; Microcytosis 1+; Smudge Cells 1+
[2024-02-04] MEDS: MAGNESIUM CHLORIDE 64 MG TABLET 128 MG PO (14:51)
[2024-02-04] MEDS: SODIUM,POTASSIUM PHOSPHATES PACKET 2 EACH PO (14:51)
--- NOTE | 2024-02-04 18:20 | PM.PN.1 ---
Subjective Subjective Interval history: 83-year-old male with CLL, hyperlipidemia, as well as prior DVT on Eliquis anticoagulation, essential tremor, BPH, and glaucoma who was admitted early this morning with bilateral pneumonia. He reports he is feeling quite a bit better than he was earlier today. However, he is complaining of lower abdominal pain. Exam Vital Signs (past 8 hours): - 02/04/24 12:00 02/04/24 12:08 02/04/24 13:21 Temperature 101.3 F H 101.3 F H 99 F Pulse Rate 78 Respiratory Rate 19 Blood Pressure 109/51 L Pulse Oximetry 93 Oxygen Flow Rate 0 02/04/24 13:25 02/04/24 17:00 Temperature 99 F 97 F L Pulse Rate 62 Respiratory Rate 22 Blood Pressure 133/74 Pulse Oximetry 96 Oxygen Flow Rate 0 Fraction of Inspired Oxygen 21 Oxygen Delivery Method Room Air Oxygen Flow Rate 0 Narrative Exam Narrative: GEN: Elderly male, Alert and oriented x 3, appears mildly uncomfortable, very pleasant HEENT:NC, Face symmetric CHEST: Respiratory excursions symmetric, coarse but CTAB, there is a left axillary mass which is palpable, nontender CV: RRR, no M/R/G ABD: Soft, NT, bladder is distended to the umbilicus and tender, BT present in all 4 quadrants, no masses EXTR: warm, well perfused, no C/C/E SKIN: warm and dry, no rash NEURO: Alert and oriented x 3, nonfocal Objective Labs 02/04/24 11:45 02/04/24 11:45 Labs: Laboratory Results - last 24 hr 02/03/24 02/03/24 02/04/24 18:19 19:05 11:45 WBC 12.9 H 9.5 RBC 4.65 4.03 L Hgb 12.4 L 10.7 L Hct 37.5 L 32.5 L MCV 80.6 80.6 MCH 26.6 26.6 MCHC 33.0 33.0 RDW 22.4 H 21.8 H Plt Count 486 H 404 H Neut % (Auto) Not Reportable Not Reportable Lymph % (Auto) Not Reportable Not Reportable [place] % (Auto) Not Reportable Not Reportable Eos % (Auto) Not Reportable Not Reportable Baso % (Auto) Not Reportable Not Reportable Lymph # (Auto) Not Reportable Not Reportable [place] # (Auto) Not Reportable Not Reportable Baso # (Auto) Not Reportable Not Reportable Total Counted 100 100 Seg Neutrophils % 55.0 64.0 Band Neutrophils % 9.0 H Lymphocytes % (Manual) 13.0 L 19.0 L Atypical Lymphs % 7.0 H 3.0 H Monocytes % (Manual) 14.0 H 9.0 Eosinophils % (Manual) 1.0 L 3.0 Basophils % (Manual) 2.0 H Metamyelocytes % 1.0 H Neutrophils # (Manual) 8256 H 6080 H Smudge Cells 1+ H 1+ H Plt Morphology Comment RBC Morphology See below See below Anisocytosis 1+ H 1+ H Microcytosis 1+ H 1+ H Ovalocytes 1+ H PT 17.3 H 23.0 H D INR 1.5 H 2.0 H APTT 36 Sodium 131 L 132 L Potassium 4.6 3.6 Chloride 101 109 H Carbon Dioxide 26 20 L BUN 22 H 16 Creatinine 1.14 0.79 Estimated GFR > 60 > 60 BUN/Creatinine Ratio 19.3 20.3 Glucose 105 103 Lactate 1.5 Calcium 8.6 7.0 L Phosphorus 2.4 Magnesium 2.1 1.7 Total Bilirubin 0.4 0.6 AST 52 40 ALT 101 H 75 H Alkaline Phosphatase 63 36 L Total Creatine Kinase 21 L Troponin I < 0.012 NT-Pro-B Natriuret Pep 1380 H Total Protein 6.6 5.3 L Albumin 3.4 L 2.4 L Globulin 3.2 2.9 Albumin/Globulin Ratio 1.1 0.8 L Lipase 49 TSH 1.48 Urine Color Yellow Urine Appearance Clear Urine pH 7.5 Ur Specific [place] 1.010 Urine Protein 1+ H Urine Glucose (UA) Negative Urine Ketones Negative Urine Occult Blood Trace-intact Urine Nitrate Negative Urine Bilirubin Negative Urine Urobilinogen 0.2 Ur Leukocyte Esterase Negative Urine RBC 1-5/hpf Urine WBC 0-1/hpf Ur Squamous Epith Cells 0-1 /hpf Amorphous Sediment 1+ Urine Bacteria Occasional (0-1) Urine Mucus 1+ H Ur Culture Indicated? Cult not indicated Vol Urine Centrifuged 10ml (spun) Chlamy pneumoniae PCR Not detected Adenovirus (PCR) Not detected B.parapertussis DNA PCR Not detected Coronavirus OC43 (PCR) Not detected Coronavirus HKU1 (PCR) Not detected Coronavirus 229E (PCR) Not detected SARS-CoV-2 (PCR) Not detected Coronavirus NL63 (PCR) Not detected Human Metapneumovir PCR Not detected Influenza Type A (PCR) Not detected Influenza Type B (PCR) Not detected M. pneumoniae (PCR) Not detected Parainfluenza 1 (PCR) Not detected Parainfluenza 2 (PCR) Not detected Parainfluenza 3 (PCR) Not detected Parainfluenza 4 (PCR) Not detected RSV (PCR) Not detected Entero/Rhino (PCR) Not detected PFSH Social History household members: spouse Smoking Status: Former smoker alcohol intake: former Assessment & Plan Assessment & Plan narrative: 1. Bilateral pneumonia Patient was placed on IV cefepime. Will add azithromycin to cover atypicals. He is now improved overall and stable on room air. He denies any shortness of breath this afternoon. 2. Urinary retention Will resume his usual home medications. Gonzalez catheter will be placed. His urine is very dilute. Will saline lock IV. 3. Diffuse B-cell lymphoma Continue outpatient follow-up with Oncology 4. Essential tremor Continue primidone 5. General weakness PT eval was done today with recommendation for home with / assist. Home health or snf for rehab were also considered as options. Code status Full Prophylaxis On apixaban Disposition Pending Quality VTE Deep Vein Thrombosis/Pulmonary Embolism Present on Admission: No
[2024-02-04] MEDS: AZITHROMYCIN 500 MG in DEXTROSE 5% IN WATER 250 ML 250 MG IV (20:12)
[2024-02-04] MEDS: TAMSULOSIN 0.4 MG CAPSULE PO (20:12)
[2024-02-04] MEDS: PRAVASTATIN 20 MG TABLET PO (20:12)
[2024-02-04] MEDS: LATANOPROST 0.005% OPHTH 2.5 ML 1 DROPS EYE-BOTH (20:13)
[2024-02-04] MEDS: CYCLOSPORINE 0.05% 1 EACH EYE-BOTH (20:24)
[2024-02-04] MEDS: DORZOLAMIDE TIMOLOL 1 EACH EYE-BOTH (20:24)
[2024-02-05] VITALS (9 sets, daily range): BP systolic 96–127; BP diastolic 54–70; PULSE 61–100; RESP 19–22; TEMP 36.2–39.3; O2SAT 93–95
--- NOTE | 2024-02-05 00:47 | PC.NURSE ---
Oral temperature 102.8. Notified Dr Swartz and he ordered tylenol and advil for temp >102.
[2024-02-05] MEDS: ACETAMINOPHEN 325 MG TABLET 650 MG PO (01:00)
[2024-02-05] MEDS: IBUPROFEN 400 MG TABLET PO (03:00)
[2024-02-05] MEDS: LEVOTHYROXINE 88 MCG TABLET PO (05:32)
[2024-02-05 06:22] LABS: Add Manual Diff / Slide Review NO; Basophils Absolute Auto 100 /uL (0-100); Basophils Percent Auto 1.3 % (0-2); Eosinophils Absolute Auto 200 /uL (0-450); Eosinophils Percent Auto 2.2 % (2-4); Hematocrit 34.2 % (41-53); Hemoglobin 11.3 g/dL (13.5-17.5); Lymphocytes Absolute Auto 2200 /uL (1100-4500); Lymphocytes Percent Auto 23.4 % (25-40); Mean Corpuscular HGB Conc 32.9 % (30-36); Mean Corpuscular Hemoglobin 26.5 PG (26-34); Mean Corpuscular Volume 80.7 fL (80-100); Monocytes Absolute Auto 800 /uL (0-900); Monocytes Percent Auto 8.5 % (3-14); Neutrophils Absolute Auto 6200 /uL (1500-7000); Neutrophils Percent Auto 64.6 % (50-75); Platelet Count 396 X10^3/uL (150-400); Red Blood Cell Count 4.24 X10^6/uL (4.5-5.9); White Blood Cell Count 9.5 X10^3/uL (4.5-11.0)
[2024-02-05 06:32] LABS: BUN Creatinine Ratio 19.6 (6-22); Blood Urea Nitrogen 20 mg/dL (9-20); Carbon Dioxide 20 mmol/L (22-32); Chloride 106 mmol/L (98-107); Estimated Glomerular Filt Rate > 60 mL/min (>60); Glucose 109 mg/dL (80-110); HEMOLYSIS < 15 (0-50); Potassium 3.4 mmol/L (3.4-5.1); Sodium 131 mmol/L (137-145)
[2024-02-05 06:39] LABS: Anisocytosis 1+; Microcytosis 1+; Ovalocytes 1+; Platelet Estimate Adequate on smear; Smudge Cells 1+
[2024-02-05] MEDS: POTASSIUM CHLORIDE 20 MEQ TAB 40 MEQ PO (09:03)
[2024-02-05] MEDS: PRIMIDONE 50 MG TABLET 100 MG PO (09:03)
[2024-02-05] MEDS: APIXABAN 5 MG TABLET PO (09:03)
[2024-02-05] MEDS: CEFEPIME 2 GM in SODIUM CHLORIDE 0.9% 100 ML IV (09:04)
[2024-02-05 11:09] LABS: MRSA (Nasal) PCR Not Detected (Not Detect)
--- NOTE | 2024-02-05 11:23 | CM.DPC ---
Addendum entered by SATISH Duval 02/05/24 14:39: ADD: Per , pt medically stable to d/c home today and worked with PT and recommendation of home with HH. SW met bedside with pt again and spouse present and provided pt's IMM and explained Medicare Rights and preference is still to discharge home today. SW discussed HH and spouse and pt confirm their preference remains home with established outpt PT and decline HH at this time. Meds efaxed to [facility] and spouse states their adult son is driving down from [place] to provide transport home and help get pt settled in home. SW updated RN. BF Original Note: DCP Cont: Per , with had fever overnight of 102 and had philippe placed due to urinary retention and pt likely not stable for discharge home yet today. Per PT eval, pending pt's progress SNF vs HH. SW met bedside with pt and explained role and he confirms he lives at home with his spouse and is mostly indep at baseline and has hx of going to [facility] in end Oct/beginning Nov this year and felt it was helpful but very boring but currently does not feel SNF needed at d/c. 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 SW discussed HH services and frequency and pt denies any hx of HH and states his preference is to remain with his outpt PT provider as his spouse plans to transport him and pt feels he will get a better work out and improve faster at outpt PT. Pt states he has appointments already scheduled for later this week and next week. Plan: SW to follow closely for further PT and ambulation today to confirm safe plan of home with spouse assist and outpt PT already set up and any further identified discharge planning needs. SATISH Duval
--- NOTE | 2024-02-05 13:52 | PT.IPTN ---
Current Diagnoses Pneumonia, unspecified organism (02/03/24) Physical Therapy Treatment Note M2 PT-IP Current Condition Start: 02/04/24 13:03 Freq: NEEDED Status: Active Protocol: Document 02/04/24 13:59 AMB (Rec: 02/04/24 14:21 AMB [id number]) Physical Therapy Current Condition Current Condition Evaluation Date 02/04/24 Treatment Diagnosis weakness, PN, CLLL Onset Date 02/03/24 M3 PT-IP Subjective Start: 02/04/24 13:03 Freq: NEEDED Status: Active Protocol: Document 02/05/24 13:22 MB (Rec: 02/05/24 13:52 MB [id number]) Subjective Physical Therapy Visit Type Type Treatment Note Visit Start Time 13:22 Visit Stop Time 13:45 Number of HIGH SCHOOL COACH Visits 0 Physical Therapy Visit Comments Patient Comments Pt with nearby and pt wishing to go for a walk. M4 PT-IP Mobility and Gait Start: 02/04/24 13:03 Freq: NEEDED Status: Active Protocol: Document 02/05/24 13:22 MB (Rec: 02/05/24 13:52 MB [id number]) PT-Bed Mobility Assessment Rolling Type of Rolling Roll to Left Level of Assist Standby Assistance,1 Person Assistance Supine to Sit Supine to Sit Contact Guard Assistance,1 Person Assistance,Head of Bed Elevated,Bedrails Scooting Scooting to Edge of Bed Standby Assistance PT-Transfer Assessment Sit to and From Stand Sit to and from Stand Contact Guard Assistance,1 Person Assistance,Use of Upper Extremities Equipment Transfer Assistive Device Gait Belt,Front Wheeled Walker Transfers Transfer Destination Chair Transfer Technique Ambulation Transfer Ability Level of Assist Contact Guard Assistance Comments Mobility Comments Pt is diaphoretic and hospital gown is damp to palpation. SOFTWARE TESTER takes temperature and it is 97 deg at this time. PT checks O2 sats and sats remain in the low 90s when pt standing. HR reads all over the place per pulse ox and to palpation, it is very irregular. Pt with B UE tremor and reports essential tremor Gait Assessment Gait Gait Assistance Required: Contact Guard Assist,1 Person Assist Distance (Feet) 100 Able to Maintain Weight Bearing Status Yes During Gait Assistive Devices Assistive Device Gait Belt,Front Wheeled Walker Gait Deviations General Gait Pattern Decreased Stride Length, Decreased Feet Clearance, Flexed Trunk Factors Limiting Gait Function Factors Limiting Gait Function Decreased Activity Tolerance, Decreased Strength,Poor Balance Comments Gait Comments 100'x2 gait today Stair Climbing Assessment Evaluation Level of Assist On Stairs Contact Guard Assistance,1 Person Assistance Devices Stair Climbing Assistive Devices Right Railing Technique/Endurance Stair Climbing Direction Ascend and Descend Stair Climbing Technique Step to Step Number of Steps Climbed 3 Stair Climbing Set # Repetitions (reps) 1 Comments Stair Climbing Comments Both hands on right rail ascend and same rail descend and slow mobility today PT-Balance Assessment Sitting Balance and Reactions Static Sitting Balance Ability Good Dynamic Sitting Balance Ability Good Standing Balance and Reactions Static Standing Balance Ability Fair Dynamic Standing Balance Ability Fair Device Used RW or wall M5 PT-IP Objective Assessments Start: 02/04/24 13:03 Freq: NEEDED Status: Active Protocol: Document 02/04/24 13:59 AMB (Rec: 02/04/24 14:21 AMB [id number]) Gross Range of Motion Lower Extremity ROM Assessment Within Functional Limits Strength Lower Extremity Strength Assessment Bilaterally Impaired Hip 3 Knee 3 Ankle 3 M6 PT-IP Treatment Start: 02/04/24 13:03 Freq: NEEDED Status: Active Protocol: Document 02/04/24 13:59 AMB (Rec: 02/04/24 14:21 AMB [id number]) Physical Therapy Treatment Exercises Exercises Ankle Pumps,Heel Slides Education Education Provided Safety M7 PT-IP Assessment and Plan Start: 02/04/24 13:03 Freq: NEEDED Status: Active Protocol: Document 02/05/24 13:22 MB (Rec: 02/05/24 13:52 MB [id number]) PT Summary Assessment and Plan Potential Rehabilitation Potential Good Status of Condition at Evaluation Evolving Summary Impairments Strength,Balance,Gait,Activity Tolerance Assessment Summary Pt is progressing with bed mobility, transfers and gait today. PT notes that pt has been diaphoretic and his gown is damp to touch. He currently has no fever. Pt's HR is irregular to palpation B radial pulse this afternoon. Goals Bed Mobility Goal Independent Transfer Goal Independent Gait Goal Independent Gait Distance 150 Other Goals Ray would need to do a full flight of stairs if he discharges home. Days to Meet Goals 7 Frequency of Treatment Frequency Of Treatment Once a Day Treatment Plan Physical Therapy Treatment Plan Bed Mobility Training,Transfer Training,Gait Training, Therapeutic Exercise,Balance Retraining Other Recommendations and Next Treatment Improve gait tolerance, give Focus bed exercises, consider stair training if fatigue is decreasing Recommendations To Nursing Amount of Assist Needed 1 Person Assist Discharge Recommendations PT Discharge Recommendations Home with 20/06 Assist Available,Home Health Transportation Needs at Discharge Private Vehicle
--- NOTE | 2024-02-05 14:12 | PM.DS.1 ---
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 Started off as generalized weakness with decreasing ability to handle daily activities to the point where patient was not able to get up or stand up or do even basic activity. Needs maximal assistance to get out of the bed and was brought to the emergency room eventually by his for concerns of dehydration. In the ED was noted to be hypotensive with a systolic in the 90s. Chest x-ray and subsequently CT of the chest showed small to moderate size right lower lobe infiltrate and small left lower lobe infiltrate. Patient was initiated on cefepime and admitted for further evaluation Discharge Providers Provider Date of admission: 02/03/24 23:18 Discharge Date: 02/05/24 Primary care physician: EARL Salgado Consults: 02/03/24 23:29 Consult to Dietitian, Adult Routine Comment: Reason For Exam: Cancer dx, weight loss >30#s 02/04/24 05:34 Consult to Physical Therapy Evaluate & Treat Comment: Physician Instructions: Evaluate and Treat 02/04/24 05:35 Consult to Occupational Therapy Evaluate & Treat Comment: Physician Instructions: Evaluate and treat Discharge provider: Rajinder Tan DO Summary Hospital Course Discharge Diagnosis: 1. Bilateral pneumonia Patient was placed on IV cefepime and azithromycin to cover atypicals. He is now improved overall and stable on room air. He denies any shortness of breath. 2. Urinary retention Will resume his usual home medications. Philippe catheter will be placed. 1.5L out of bladder with philippe placement. F/up outpatient with urology. 3. Diffuse B-cell lymphoma Continue outpatient follow-up with Oncology 4. Essential tremor Continue primidone 5. General weakness PT eval was done and rec HH PT. Hospital Course: Admitted for weakness following chemo treatment, and found to have bilateral pneumonia. Given IV abx and improved. Noted to have abd pain and bladder scan showed 1.5L of urine. Philippe placed and will be continued until outpatient f/up with urology. Placed on po abx to complete 5 days of treatment for pneumonia. Exam Vital Signs (past 8 hours): - 02/05/24 08:21 02/05/24 08:45 02/05/24 12:00 Temperature 97.2 F L 97.5 F L Pulse Rate 96 H 61 Respiratory Rate 19 22 Blood Pressure 101/61 96/54 L Pulse Oximetry 94 95 Oxygen Delivery Method Room Air Oxygen Flow Rate 0 0 Fraction of Inspired Oxygen 21 Oxygen Delivery Method Room Air Oxygen Flow Rate 0 Narrative Exam Narrative: GEN: Elderly male, Alert and oriented x 3, very pleasant HEENT:NC, Face symmetric CHEST: Respiratory excursions symmetric, coarse but CTAB, there is a left axillary mass which is palpable, nontender CV: RRR, no M/R/G ABD: Soft, NT, bladder is distended to the umbilicus and tender, BT present in all 4 quadrants, no masses EXTR: warm, well perfused, no C/C/E SKIN: warm and dry, no rash NEURO: Alert and oriented x 3, nonfocal Objective Labs 02/05/24 05:26 02/05/24 05:26 Labs: Laboratory Results - last 24 hr 02/04/24 02/05/24 02/05/24 11:45 05:26 09:15 WBC 9.5 RBC 4.24 L Hgb 11.3 L Hct 34.2 L MCV 80.7 MCH 26.5 MCHC 32.9 RDW 22.0 H Plt Count 396 Neut % (Auto) 64.6 Lymph % (Auto) 23.4 L Jerome % (Auto) 8.5 Eos % (Auto) 2.2 Baso % (Auto) 1.3 Neut # (Auto) 6200 Lymph # (Auto) 2200 Jerome # (Auto) 800 Eos # (Auto) 200 Baso # (Auto) 100 Total Counted 100 Seg Neutrophils % 64.0 Lymphocytes % (Manual) 19.0 L Atypical Lymphs % 3.0 H Monocytes % (Manual) 9.0 Eosinophils % (Manual) 3.0 Basophils % (Manual) 2.0 H Neutrophils # (Manual) 6080 H Smudge Cells 1+ H 1+ H Platelet Estimate Adequate on smear RBC Morphology See below See below Anisocytosis 1+ H 1+ H Microcytosis 1+ H 1+ H Ovalocytes 1+ H Sodium 131 L Potassium 3.4 Chloride 106 Carbon Dioxide 20 L BUN 20 Creatinine 1.02 Estimated GFR > 60 BUN/Creatinine Ratio 19.6 Glucose 109 Calcium 8.0 L Nasal Screen MRSA (PCR) Not detected PFSH Social History household members: spouse Smoking Status: Former smoker alcohol intake: former Discharge Plan Discharge Plan Patient Disposition: Home Health Service Provider Discharge Comment: You were admitted for weakness and found to have pneumonia. You received IV antibiotics and will finish some at home. Please f/up with urology to have your philippe catheter dealt with. I've increased your flomax in the meantime. Discharge orders & Medications Prescriptions: New azithromycin 500 mg tablet 500 mg PO DAILY 1 Days Qty: 1 0RF Rx Instructions: take on 02/05 amoxicillin-pot clavulanate 875-125 mg tablet 1 tab PO BID 4 Days Qty: 8 0RF Rx Instructions: start evening of 02/04 Continued Lotemax 0.5 % ointment 0.5 ea OP BID Qty: 0 Rx Instructions: each eye levothyroxine 50 MCG tablet 88 mcg PO QAM Qty: 0 primidone 50 mg Tablet 150 mg PO DAILY Rx Instructions: 100 mg in AM, 50 mg at NIGHT latanoprost 0.005 % Drops 1 drp OPHTHALMIC (EYE) BEDTIME cyclosporine [Restasis] 0.05 % Dropperette 1 drp OPHTHALMIC (EYE) BID Eliquis 5 mg tablet 5 mg PO BID carboxymethylcellulose sodium 1 % Dropperette 1 drp ophthalmic (eye) BID Rx Instructions: BOTH EYES Refresh Optive 0.5-0.9 % Drops 1 drp ophthalmic (eye) PRN PRN (Reason: Eye Irritation) Rx Instructions: 4-6 times a day dorzolamide-timolol (PF) [Cosopt (PF)] 2-0.5 % Dropperette 1 drp OPHTHALMIC (EYE) BID Rx Instructions: ON EDROP EACH EYE pravastatin 20 MG tablet 20 mg PO BEDTIME Changed tamsulosin 0.4 mg Capsule 0.8 mg PO BEDTIME Qty: 30 0RF Follow up/Referrals: Carmen Naqvi ARNP [Primary Care Provider] - Visit Report/Discharge Packet Stand Alone Forms: Patient Portal/API, Stroke Signs & Symptoms Discharge Data Primary Care Provider: Carmen Naqvi Quality VTE Deep Vein Thrombosis/Pulmonary Embolism Present on Admission: No
[2024-02-05] MEDS: AZITHROMYCIN 250 MG TABLET 500 MG PO (14:35)
--- NOTE | 2024-02-05 16:10 | PC.NURSE ---
Pt discharged home at 1605, escorted off floor in wheelchair accompanied by spouse and hospital staff. IV removed, discharge teaching completed including catheter care, follow up appointments and new medications. Questions answered and concerns addressed. Patient left the floor with all belongings.
== END 2024-02-05 16:17 | disposition home health service (06) | DRG 871 ==
LOC: ED 22:48 → AC 23:19
PROVIDERS: Family Medicine; Student in an Organized Health Care Education/Training Program; Admitting Provider Internal Medicine; Emergency Provider Emergency Medicine; PCP Registered Nurse; Referring Provider Emergency Medicine; Visit Provider Internal Medicine
DX: A41.9 Sepsis, unspecified organism (principal); J18.9 Pneumonia, unspecified organism; C83.34 Diffuse large B-cell lymphoma, lymph nodes of axilla and upper limb; R25.1 Tremor, unspecified; R60.9 Edema, unspecified; H40.9 Unspecified glaucoma; E78.5 Hyperlipidemia, unspecified; Z79.01 Long term (current) use of anticoagulants; Z87.891 Personal history of nicotine dependence; Z86.718 Personal history of other venous thrombosis and embolism; R03.1 Nonspecific low blood-pressure reading
CPT/HCPCS: 36415; 70450; 71045; 71275; 80048; 80053; 81001; 82550; 82962; 83605; 83690; 83735; 83880; 84100; 84443; 84484; 85007; 85025; 85610; 85730; 87040; 87633; 87797; 93005; 93010; 96365; 97116; 97162; 97530; 99285; J0692; Q9967

== ENCOUNTER 2024-02-05 21:48 | Inpatient (IN) | payer MEDICARE, OTHER, SELFPAY ==
[2024-02-03 23:21] VITALS: BMI 22.9
[2024-02-05] VITALS (12 sets, daily range): BP systolic 92–114; BP diastolic 51–58; PULSE 80–99; RESP 20–31; TEMP 37.3–39.4; O2SAT 92–96; BMI 23.1
--- NOTE | 2024-02-05 21:50 | ED_ITS ---
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 Patient recently admitted to the hospital for sepsis and pneumonia, he was released this afternoon on oral antibiotics. Family at bedside state that patient had a brief good afternoon and was able to ambulate with PT, however when he went home he spiked a high fever, was delirious, and again was weight and could not move even with maximum assistance with his family. Family is concerned that he needs extra days of antibiotics and he was not ready to go home. Related Data Home Medications Medication Instructions Recorded Confirmed loteprednol etabonate 0.5 % eye 0.5 ea OP BID ##0 06/01/12 02/06/24 ointment (Lotemax) levothyroxine 50 mcg tablet 88 mcg PO QAM ##0 09/19/17 02/06/24 primidone 50 mg tablet 150 mg PO DAILY 02/09/22 02/06/24 cyclosporine 0.05 % eye drops in a 1 drp ophthalmic (eye) BID 11/30/22 02/06/24 dropperette (Restasis) latanoprost 0.005 % eye drops 1 drp ophthalmic (eye) BEDTIME 11/30/22 02/06/24 apixaban 5 mg tablet (Eliquis) 5 mg PO BID 01/06/24 02/06/24 carboxymethylcellulose 0.5 1 drp ophthalmic (eye) PRN PRN Eye 02/03/24 02/06/24 %-glycerin 0.9 % eye drops Irritation (Refresh Optive) carboxymethylcellulose sodium 1 % 1 drp ophthalmic (eye) BID 02/03/24 02/06/24 eye drops in a dropperette dorzolamide-timolol (PF) 2 %-0.5 % 1 drp ophthalmic (eye) BID 02/03/24 02/06/24 eye drops in a dropperette (Cosopt (PF)) pravastatin 20 mg tablet 20 mg PO BEDTIME 02/03/24 02/06/24 tamsulosin 0.4 mg capsule 0.8 mg PO BEDTIME 02/06/24 02/06/24 Previous Rx's Medication Instructions Recorded amoxicillin 875 mg-potassium 1 tab PO BID 4 days #8 tabs 02/05/24 clavulanate 125 mg tablet azithromycin 500 mg tablet 500 mg PO DAILY 1 day #1 tab 02/05/24 Allergies Allergy/AdvReac Type Severity Reaction Status Date / Time No Known Drug Allergies Allergy Verified 02/05/24 22:05 Review of Systems Review of Systems Narrative: see HPI Patient History Social History household members: spouse Smoking Status: Former smoker alcohol intake: former Smoking Status: Former smoker Substance Use Type: does not use Exam Initial Vital Signs Initial Vital Signs: Vital Signs Temperature 102.9 F H 02/05/24 21:49 Pulse Rate 98 H 02/05/24 21:49 Respiratory Rate 20 02/05/24 21:49 Blood Pressure 98/54 L 02/05/24 21:49 Pulse Oximetry 96 02/05/24 21:49 Oxygen Delivery Method Room Air 02/05/24 21:49 Const: Awake, alert, debilitated, frail, chronically unwell appearing Cardiac: regular rate, regular rhythm RESP: unlabored, clear bilaterally, no wheezing Skin: Warm, Dry, intact, no rashes Neuro: AO x3, CN II-XII grossly intact, moves all extremities Course Orders Ordered: Acetaminophen (Acetaminophen 325 Mg Tablet) 650 mg PO Q6H PRN PRN Reason: Fever/Mild Pain (1-3) Last Admin: 02/08/24 08:57 Dose: 650 mg Documented By: Admin: 02/07/24 14:05 Dose: 650 mg Documented By: Admin: 02/07/24 05:09 Dose: 650 mg Documented By: Admin: 02/06/24 21:46 Dose: 650 mg Documented By: Admin: 02/06/24 03:38 Dose: 650 mg Documented By: MASON Apixaban (Apixaban 5 Mg Tablet) 5 mg PO BID [facility] Last Admin: 02/08/24 08:57 Dose: 5 mg Documented By: Admin: 02/07/24 21:30 Dose: 5 mg Documented By: Admin: 02/07/24 09:00 Dose: 5 mg Documented By: Admin: 02/06/24 22:29 Dose: 5 mg Documented By: Admin: 02/06/24 08:13 Dose: 5 mg Documented By: GERARD Aspirin (Aspirin Ec 81 Mg Tablet) 81 mg PO DAILY [facility] Last Admin: 02/08/24 08:58 Dose: 81 mg Documented By: Admin: 02/07/24 09:00 Dose: 81 mg Documented By: Admin: 02/06/24 10:30 Dose: 81 mg Documented By: GERARD Calcium Carbonate (Calcium Carbonate 500 Mg Tab) 1,000 mg PO Q4HR PRN PRN Reason: Dyspepsia Dorzolamide/Timolol (Dorzolamide/Timolol Ophth 10 Ml) 1 drops EYE-BOTH BID [facility] Last Admin: 02/08/24 08:58 Dose: 1 drops Documented By: Admin: 02/07/24 21:32 Dose: 1 drops Documented By: Admin: 02/07/24 09:04 Dose: 1 drops Documented By: Admin: 02/06/24 22:09 Dose: 1 drops Documented By: Admin: 02/06/24 08:13 Dose: 1 drops Documented By: GERARD Cefepime HCl 2 gm/ Sodium (Chloride) 100 mls @ 200 mls/hr IV Q12H [facility] Last Infusion: 02/08/24 16:38 Dose: Infused Documented By: Admin: 02/08/24 10:53 Dose: 200 mls/hr Documented By: Infusion: 02/07/24 23:51 Dose: Infused Documented By: Admin: 02/07/24 23:21 Dose: 200 mls/hr Documented By: Infusion: 02/07/24 12:38 Dose: Infused Documented By: Admin: 02/07/24 12:08 Dose: 200 mls/hr Documented By: Infusion: 02/06/24 23:13 Dose: Infused Documented By: Admin: 02/06/24 22:43 Dose: 200 mls/hr Documented By: Infusion: 02/06/24 14:35 Dose: Infused Documented By: Admin: 02/06/24 10:31 Dose: 200 mls/hr Documented By: GERARD Vancomycin HCl (Vancomycin) 1,000 mg in 200 mls @ 200 mls/hr IV Q12H [facility] Last Infusion: 02/08/24 09:07 Dose: Infused Documented By: Admin: 02/08/24 07:52 Dose: 200 mls/hr Documented By: Infusion: 02/07/24 21:00 Dose: Infused Documented By: Admin: 02/07/24 19:56 Dose: 200 mls/hr Documented By: AT Sodium Chloride (Normal Saline 0.9%) 1,000 mls @ 50 mls/hr IV CONT [facility] Last Admin: 02/08/24 07:52 Dose: 100 mls/hr Documented By: Infusion: 02/08/24 07:09 Dose: Infused Documented By: Admin: 02/07/24 21:09 Dose: 100 mls/hr Documented By: AT Acetaminophen ([facility]) 1,000 mg in 100 mls @ 400 mls/hr IV Q6H PRN PRN Reason: fever Levothyroxine Sodium (Levothyroxine 50 Mcg Tablet) 88 mcg PO 0600 [facility] Last Admin: 02/08/24 06:41 Dose: 100 mcg Documented By: Admin: 02/07/24 05:09 Dose: 88 mcg Documented By: Admin: 02/06/24 05:19 Dose: Not Given Documented By: MASON Metoprolol Tartrate (Metoprolol Ir 25 Mg Tablet) 12.5 mg PO BID [facility] Last Admin: 02/08/24 08:57 Dose: 12.5 mg Documented By: Admin: 02/07/24 21:31 Dose: 12.5 mg Documented By: Admin: 02/07/24 09:04 Dose: 12.5 mg Documented By: Admin: 02/06/24 21:46 Dose: 12.5 mg Documented By: Admin: 02/06/24 10:29 Dose: Not Given Documented By: GERARD Morphine Sulfate (Morphine 4 Mg/Ml Inj) 3 mg IV Q2HR PRN PRN Reason: Pain, Severe (7-10) Last Admin: 02/07/24 14:05 Dose: 3 mg Documented By: JONATHON Naloxone HCl (Naloxone 0.4 Mg/Ml Vial) 0.2 mg IV Q2MIN PRN PRN Reason: Opiate Reversal Nf ( Carboxymethylcellulo se Sodium 1 % Dropperette) 1 drop EYE-BOTH BID [facility] Last Admin: 02/08/24 09:16 Dose: Not Given Documented By: Admin: 02/07/24 21:32 Dose: 1 drop Documented By: Admin: 02/07/24 09:05 Dose: 1 drop Documented By: Admin: 03/11/24 22:22 Dose: 1 drop Documented By: Admin: 02/06/24 08:11 Dose: Not Given Documented By: GERARD Frazier (Cyclosporine [ Restasis] 0.05 % Dropperette) 1 drop EYE-BOTH BID [facility] Last Admin: 02/08/24 08:58 Dose: 1 drop Documented By: Admin: 02/07/24 21:32 Dose: 1 drop Documented By: Admin: 02/07/24 09:05 Dose: 1 drop Documented By: Admin: 02/06/24 22:23 Dose: 1 drop Documented By: Admin: 02/06/24 08:11 Dose: Not Given Documented By: GERARD Frazier (Loteprednol Etabonate [Lotemax] 0.5 % Opth Susp) 1 each EYE-BOTH BID [facility] Last Admin: 02/08/24 09:16 Dose: Not Given Documented By: Admin: 02/07/24 21:32 Dose: 1 each Documented By: Admin: 02/07/24 09:05 Dose: 1 each Documented By: Admin: 02/06/24 22:23 Dose: 1 each Documented By: Admin: 02/06/24 12:01 Dose: Not Given Documented By: GERARD Stored In Pharmacy 0 each PO PRN PRN PRN Reason: . Ondansetron HCl (Ondansetron 4 Mg/2 Ml Inj) 4 mg IV Q8HR PRN PRN Reason: Nausea And Vomiting Oxycodone HCl (Oxycodone Ir 5 Mg Tablet) 5 mg PO Q3HR PRN PRN Reason: Pain, Moderate (4-6) Last Admin: 02/08/24 08:57 Dose: 5 mg Documented By: BT Pravastatin Sodium (Pravastatin 20 Mg Tablet) 20 mg PO BEDTIME [facility] Last Admin: 02/07/24 21:31 Dose: 20 mg Documented By: Admin: 02/06/24 21:46 Dose: 20 mg Documented By: MASON Prednisone (Prednisone 20 Mg Tablet) 40 mg PO DAILY [facility] Last Admin: 02/08/24 18:27 Dose: 40 mg Documented By: BT Primidone (Primidone 50 Mg Tablet) 100 mg PO DAILY [facility] Last Admin: 02/08/24 08:57 Dose: 100 mg Documented By: Admin: 02/07/24 09:00 Dose: 100 mg Documented By: JONATHON Primidone (Primidone 50 Mg Tablet) 50 mg PO BEDTIME [facility] Last Admin: 02/07/24 21:34 Dose: 50 mg Documented By: AT Tamsulosin HCl (Tamsulosin 0.4 Mg Capsule) 0.8 mg PO BEDTIME [facility] Last Admin: 02/07/24 21:32 Dose: 0.8 mg Documented By: Admin: 02/06/24 21:46 Dose: 0.8 mg Documented By: MASON Vancomycin HCl (Vancomycin Per Pharmacy) 1 request MISC NOW PRN PRN Reason: sepsis Vancomycin HCl (Vancomycin Trough) 1 request MIS 0630 [facility] Stop: 02/09/24 06:31 Vancomycin HCl (Vancomycin Peak) 1 request [facility] Stop: 02/09/24 09:01 Discontinued Medications Hydrocodone Bitart/Acetaminophen (Hydrocodone/Acet 5/325 Tablet) 1 tab PO Q4H PRN PRN Reason: Pain, Moderate (4-6) Hydrocodone Bitart/Acetaminophen (Hydrocodone/Acet 5/325 Tablet) 2 tab PO Q4H PRN PRN Reason: Pain, Severe (7-10) Last Admin: 02/06/24 12:08 Dose: 2 tab Documented By: GERARD Cefepime HCl 2 gm/ Sodium (Chloride) 100 mls @ 200 mls/hr IV NOW ONE Stop: 02/05/24 22:00 Last Infusion: 02/05/24 23:04 Dose: Infused Documented By: Admin: 02/05/24 22:24 Dose: 200 mls/hr Documented By: GUILLERMINA Sodium Chloride (Normal Saline 0.9%) 2,400 mls @ 800 mls/hr 30 ml/kg infuse over 3 hr (2400 ml) IV NOW ONE Stop: 02/06/24 00:58 Last Infusion: 02/06/24 01:27 Dose: Infused Documented By: Admin: 02/05/24 22:23 Dose: 800 mls/hr Documented By: GUILLERMINA Sodium Chloride (Normal Saline 0.9%) 1,000 mls @ 100 mls/hr IV CONT [facility] Last Infusion: 02/07/24 11:10 Dose: Infused Documented By: Admin: 02/07/24 01:02 Dose: 100 mls/hr Documented By: Infusion: 02/07/24 00:42 Dose: Infused Documented By: Admin: 02/06/24 14:42 Dose: 100 mls/hr Documented By: Infusion: 02/06/24 13:03 Dose: Infused Documented By: Admin: 02/06/24 03:03 Dose: 100 mls/hr Documented By: MASON Acetaminophen (Ofirmev) 1,000 mg in 100 mls @ 400 mls/hr IV NOW ONE Stop: 02/07/24 20:53 Last Admin: 02/07/24 21:09 Dose: 400 mls/hr Documented By: AT Acetaminophen (irm) 1,000 mg in 100 mls @ 400 mls/hr IV NOW ONE Stop: 02/08/24 16:29 Last Infusion: 02/08/24 16:37 Dose: Infused Documented By: Admin: 02/08/24 16:17 Dose: 400 mls/hr Documented By: BT POTASSIUM CHLORIDE IN WATER (Potassium Cl 10 Meq/100 Ml Namita) 10 meq in 100 mls @ 100 mls/hr IV Q1H [facility] Stop: 02/08/24 18:14 Last Infusion: 02/08/24 18:31 Dose: Infused Documented By: Admin: 02/08/24 17:27 Dose: 100 mls/hr Documented By: Infusion: 02/08/24 17:27 Dose: Infused Documented By: Admin: 02/08/24 16:27 Dose: 100 mls/hr Documented By: BT Morphine Sulfate (Morphine 4 Mg/Ml Inj) 3 mg IV Q2HR [facility] Last Admin: 02/06/24 03:16 Dose: 3 mg Documented By: MASON Non-Formulary Medication (Dorzolamide-Timolol (Pf) [Cosopt (Pf)]) 1 drop OPHTHALMIC (EYE) BID [facility] Non-Formulary Medication (Loteprednol Etabonate [Lotemax]) 0.5 each EYE-BOTH BID [facility] Last Admin: 02/06/24 08:12 Dose: Not Given Documented By: GERARD Potassium Chloride (Potassium Chloride 20 Meq Tab) 40 meq PO NOW ONE Stop: 02/08/24 15:01 Last Admin: 02/08/24 16:12 Dose: Not Given Documented By: BT Primidone (Primidone 50 Mg Tablet) 150 mg PO DAILY [facility] Last Admin: 02/06/24 08:12 Dose: 150 mg Documented By: GEARRD Vital Signs Vital signs: Vital Signs - 8 hr 02/05/24 23:30 02/05/24 23:30 02/05/24 23:45 Pulse Rate 80 81 Respiratory Rate 28 H 30 H Blood Pressure 108/57 L Pulse Oximetry 93 94 02/05/24 23:45 02/05/24 23:59 02/06/24 00:00 Pulse Rate 81 Respiratory Rate 25 H Blood Pressure 114/56 L 107/59 L Pulse Oximetry 94 02/06/24 00:00 02/06/24 00:15 02/06/24 00:15 Pulse Rate 80 77 Respiratory Rate 24 24 Blood Pressure 107/55 L Pulse Oximetry 94 94 02/06/24 00:30 02/06/24 00:30 02/06/24 00:45 Pulse Rate 81 Respiratory Rate 24 Blood Pressure 110/59 L 116/58 L Pulse Oximetry 94 02/06/24 00:45 02/06/24 01:00 02/06/24 01:00 Pulse Rate 78 79 Respiratory Rate 21 23 Blood Pressure 110/59 L Pulse Oximetry 92 93 MDM - Fever Lab Data 02/08/24 11:50 02/08/24 11:50 Labs: Lab Results 02/05/24 02/05/24 02/05/24 Range/Units 00:29 21:59 22:06 WBC 8.9 (4.5-11.0) X10^3/uL RBC 4.46 L (4.5-5.9) X10^6/uL Hgb 11.7 L (13.5-17.5) g/dL Hct 35.3 L (41-53) % MCV 79.2 L (80-100) fL MCH 26.2 (26-34) PG MCHC 33.0 (30-36) % RDW 21.8 H (11.6-14.8) % Plt Count 405 H (150-400) X10^3/uL Neut % (Auto) 80.8 H (50-75) % Lymph % (Auto) 13.3 L (25-40) % [place] % (Auto) 3.8 (3-14) % Eos % (Auto) 1.4 L (2-4) % Baso % (Auto) 0.7 (0-2) % Neut # (Auto) 7100 H (0205-9067) /uL Lymph # (Auto) 1200 (9009-2180) /uL [place] # (Auto) 300 (0-900) /uL Eos # (Auto) 100 (0-450) /uL Baso # (Auto) 100 (0-100) /uL Platelet Estimate Increased on smear RBC Morphology See below Anisocytosis 1+ H Microcytosis 1+ H Ovalocytes 1+ H Lisa Cells 1+ H Sodium 131 L (137-145) mmol/L Potassium 4.0 (3.4-5.1) mmol/L Chloride 107 (98-107) mmol/L Carbon Dioxide 16 L (22-32) mmol/L BUN 22 H (9-20) mg/dL Creatinine 0.89 (0.66-1.25) mg/dL Estimated GFR > 60 (>60) mL/min BUN/Creatinine Ratio 24.7 H (6-22) Glucose 179 H (80-110) mg/dL Lactate 1.0 2.1 (0.7-2.1) mmol/L Calcium 8.5 (8.4-10.2) mg/dL Total Bilirubin 0.4 (0.2-1.3) mg/dL AST 35 (17-59) IU/L ALT 62 H (<50) IU/L Alkaline Phosphatase 57 (38-126) U/L Total Creatine Kinase 66 (55-170) U/L Troponin I 0.050 H (0.01-0.034) ng/mL Total Protein 6.0 L (6.3-8.2) g/dL Albumin 2.9 L (3.5-5.0) g/dL Globulin 3.1 (1.7-4.1) g/dL Albumin/Globulin Ratio 0.9 L (1.0-2.8) Procalcitonin 0.39 (<0.5) ng/mL Urine Color Yellow Urine Appearance Clear Urine pH 6.0 (4.5-8.0) Ur Specific [place] 1.025 (1.000-1.035) Urine Protein 2+ H (Negative) Urine Glucose (UA) Negative (Negative) g/dL Urine Ketones 1+ H (NEGATIVE) Urine Occult Blood 3+ H (Negative) Urine Nitrate Negative (Negative) Urine Bilirubin Negative (NEGATIVE) Urine Urobilinogen 0.2 (0.2) E.U./dL Ur Leukocyte Esterase Negative (NEGATIVE) Urine RBC 10-30/hpf H (0-5/HPF) Urine WBC None seen (0-5/HPF) Ur Squamous Epith Cells 0-1 /hpf (0-5/HPF) Urine Bacteria None seen (None) Ur Culture Indicated? Cult not indicated Vol Urine Centrifuged 10ml (spun) Chlamy pneumoniae PCR (Not Detect) Adenovirus (PCR) (Not Detect) B.parapertussis DNA PCR (Not Detecte) Coronavirus OC43 (PCR) (Not Detect) Coronavirus HKU1 (PCR) (Not Detect) Coronavirus 229E (PCR) (Not Detect) SARS-CoV-2 (PCR) (Not Detecte) Coronavirus NL63 (PCR) (Not Detect) Human Metapneumovir PCR (Not Detect) Influenza Type A (PCR) (Not Detect) Influenza Type B (PCR) (Not Detect) M. pneumoniae (PCR) (Not Detect) Parainfluenza 1 (PCR) (Not Detect) Parainfluenza 2 (PCR) (Not Detect) Parainfluenza 3 (PCR) (Not Detect) Parainfluenza 4 (PCR) (Not Detect) RSV (PCR) (Not Detect) Entero/Rhino (PCR) (Not Detect) 02/05/24 02/05/24 Range/Units 22:11 23:57 WBC (4.5-11.0) X10^3/uL RBC (4.5-5.9) X10^6/uL Hgb (13.5-17.5) g/dL Hct (41-53) % MCV (80-100) fL MCH (26-34) PG MCHC (30-36) % RDW (11.6-14.8) % Plt Count (150-400) X10^3/uL Neut % (Auto) (50-75) % Lymph % (Auto) (25-40) % [place] % (Auto) (3-14) % Eos % (Auto) (2-4) % Baso % (Auto) (0-2) % Neut # (Auto) (6614-5685) /uL Lymph # (Auto) (8941-2879) /uL [place] # (Auto) (0-900) /uL Eos # (Auto) (0-450) /uL Baso # (Auto) (0-100) /uL Platelet Estimate RBC Morphology Anisocytosis Microcytosis Ovalocytes Lisa Cells Sodium (137-145) mmol/L Potassium (3.4-5.1) mmol/L Chloride (98-107) mmol/L Carbon Dioxide (22-32) mmol/L BUN (9-20) mg/dL Creatinine (0.66-1.25) mg/dL Estimated GFR (>60) mL/min BUN/Creatinine Ratio (6-22) Glucose (80-110) mg/dL Lactate (0.7-2.1) mmol/L Calcium (8.4-10.2) mg/dL Total Bilirubin (0.2-1.3) mg/dL AST (17-59) IU/L ALT (<50) IU/L Alkaline Phosphatase (38-126) U/L Total Creatine Kinase (55-170) U/L Troponin I 0.051 H (0.01-0.034) ng/mL Total Protein (6.3-8.2) g/dL Albumin (3.5-5.0) g/dL Globulin (1.7-4.1) g/dL Albumin/Globulin Ratio (1.0-2.8) Procalcitonin (<0.5) ng/mL Urine Color Urine Appearance Urine pH (4.5-8.0) Ur Specific [place] (1.000-1.035) Urine Protein (Negative) Urine Glucose (UA) (Negative) g/dL Urine Ketones (NEGATIVE) Urine Occult Blood (Negative) Urine Nitrate (Negative) Urine Bilirubin (NEGATIVE) Urine Urobilinogen (0.2) E.U./dL Ur Leukocyte Esterase (NEGATIVE) Urine RBC (0-5/HPF) Urine WBC (0-5/HPF) Ur Squamous Epith Cells (0-5/HPF) Urine Bacteria (None) Ur Culture Indicated? Vol Urine Centrifuged Chlamy pneumoniae PCR Not detected (Not Detect) Adenovirus (PCR) Not detected (Not Detect) B.parapertussis DNA PCR Not detected (Not Detecte) Coronavirus OC43 (PCR) Not detected (Not Detect) Coronavirus HKU1 (PCR) Not detected (Not Detect) Coronavirus 229E (PCR) Not detected (Not Detect) SARS-CoV-2 (PCR) Not detected (Not Detecte) Coronavirus NL63 (PCR) Not detected (Not Detect) Human Metapneumovir PCR Not detected (Not Detect) Influenza Type A (PCR) Not detected (Not Detect) Influenza Type B (PCR) Not detected (Not Detect) M. pneumoniae (PCR) Not detected (Not Detect) Parainfluenza 1 (PCR) Not detected (Not Detect) Parainfluenza 2 (PCR) Not detected (Not Detect) Parainfluenza 3 (PCR) Not detected (Not Detect) Parainfluenza 4 (PCR) Not detected (Not Detect) RSV (PCR) Not detected (Not Detect) Entero/Rhino (PCR) Not detected (Not Detect) Imaging Data Chest x-ray: Radiologist's Impression: PROCEDURE: XR CHEST 1V INDICATIONS: SEPSIS TECHNIQUE: One view of the chest was acquired. COMPARISON: [facility], CT, CT CHEST ABDOMEN PELVIS WITH CONTRAST, 01/31/2024, 17:07. [facility], CT, CT ANGIO CHEST PE PROTOCOL, 02/03/2024, 21:45. [facility], CR, XR CHEST 1V, 02/03/2024, 18:59. [facility], CR, XR CHEST 1V, 01/06/2024, 13:29. FINDINGS: Surgical changes and devices: Right chest Port-A-Cath is again seen with catheter tip projecting over the right atrium. Lungs and pleura: Lung volumes are seen bilaterally. Stable bibasilar atelectasis versus consolidations. Chronic elevation of the right hemidiaphragm. No pleural effusion or pneumothorax is seen. Mediastinum: Mediastinal contours appear normal. Heart size is normal. Bones and chest wall: No suspicious bony lesions. Overlying soft tissues appear unremarkable. IMPRESSION: Low lung volumes bilaterally with stable bibasilar atelectasis or consolidations. Approved by: Eliseo Perez M.D. on 02/05/2024 at 23:11 MDM Narrative Medical decision making narrative: Brought back in by EMS after being discharged earlier today from the hospital. Family states that patient immediately began to spike high fevers at home and was just as debilitated as when he 1st came into the hospital. Patient has known bilateral lower lobe pneumonia. Will repeat sepsis bundle with IV fluids, IV antibiotics, chest x-ray. Laboratory work is grossly stable from previous, however there is a new mild elevation in patient's troponin. On 02/03/2024 patient's troponin was undetectable, however today it was 0.05. Patient is denying any chest pain and EKG is normal sinus rhythm without acute ischemic findings. Family at bedside also state that they would not want any aggressive cardiac workup or interventions performed. If 2 hour troponin is stable then plan to admit to hospital here for additional IV antibiotics and treatment. I do believe this could be related to a demand from metabolic needs of patient's ongoing recurrent fever. 2 hour troponin is stable. Patient again denies any and all chest pain and states other than feeling weak he feels ?okay?. Plan to admit to hospital for further treatment. Discharge Plan Departure Patient Disposition: Admitted As Inpatient Clinical Impression: Pneumonia, Generalized weakness Admit Date/Time: 02/06/24 01:06 Admit Provider: Mansoor Callahan
--- NOTE | 2024-02-05 21:59 | DI.RAD.S_ITS ---
PROCEDURE: XR CHEST 1V INDICATIONS: SEPSIS TECHNIQUE: One view of the chest was acquired. COMPARISON: [facility], CT, CT CHEST ABDOMEN PELVIS WITH CONTRAST, 01/31/2024, 17:07. [facility], CT, CT ANGIO CHEST PE PROTOCOL, 02/03/2024, 21:45. [facility], CR, XR CHEST 1V, 02/03/2024, 18:59. [facility], CR, XR CHEST 1V, 01/06/2024, 13:29. FINDINGS: Surgical changes and devices: Right chest Port-A-Cath is again seen with catheter tip projecting over the right atrium. Lungs and pleura: Lung volumes are seen bilaterally. Stable bibasilar atelectasis versus consolidations. Chronic elevation of the right hemidiaphragm. No pleural effusion or pneumothorax is seen. Mediastinum: Mediastinal contours appear normal. Heart size is normal. Bones and chest wall: No suspicious bony lesions. Overlying soft tissues appear unremarkable. IMPRESSION: Low lung volumes bilaterally with stable bibasilar atelectasis or consolidations. Approved by: Eliseo Perez M.D. on 02/05/2024 at 23:11
[2024-02-05 22:11] LABS: Add Manual Diff / Slide Review NO; Basophils Absolute Auto 100 /uL (0-100); Basophils Percent Auto 0.7 % (0-2); Eosinophils Absolute Auto 100 /uL (0-450); Eosinophils Percent Auto 1.4 % (2-4); Hematocrit 35.3 % (41-53); Hemoglobin 11.7 g/dL (13.5-17.5); Lymphocytes Absolute Auto 1200 /uL (1100-4500); Lymphocytes Percent Auto 13.3 % (25-40); Mean Corpuscular Hemoglobin 26.2 PG (26-34); Mean Corpuscular Volume 79.2 fL (80-100); Monocytes Absolute Auto 300 /uL (0-900); Monocytes Percent Auto 3.8 % (3-14); Neutrophils Absolute Auto 7100 /uL (1500-7000); Neutrophils Percent Auto 80.8 % (50-75); Platelet Count 405 X10^3/uL (150-400); Red Blood Cell Count 4.46 X10^6/uL (4.5-5.9); Red Cell Distribution Width 21.8 % (11.6-14.8); White Blood Cell Count 8.9 X10^3/uL (4.5-11.0)
[2024-02-05] MEDS: SODIUM CHLORIDE 0.9% 2,400 ML 800 ML IV (22:23)
[2024-02-05] MEDS: CEFEPIME 2 GM in SODIUM CHLORIDE 0.9% 100 ML IV (22:24)
[2024-02-05 22:28] LABS: Appearance Urine UA CLEAR; Bilirubin Urine UA NEGATIVE (NEGATIVE); Color Urine UA YELLOW; Glucose Urine UA NEGATIVE (Negative); Ketones Urine UA 1+ (NEGATIVE); Leukocyte Esterase Urine UA NEGATIVE (NEGATIVE); Nitrite Urine UA NEGATIVE (Negative); Occult Blood Urine UA 3+ (Negative); Protein Urine UA 2+ (Negative); Specific Gravity Urine UA 1.025 (1.000-1.035); Urobilinogen Urine UA 0.2 E.U./dL (0.2)
[2024-02-05 22:34] LABS: Bacteria Urine None Seen; RBC Urine 10-30/HPF (0-5/HPF); Squamous Epithelial Cell Urine 0-1 /HPF (0-5/HPF); Urine Volume 10mL (spun); WBC Urine None Seen (0-5/HPF)
[2024-02-05 22:35] LABS: Alanine Aminotransferase 62 IU/L (<50); Albumin 2.9 g/dL (3.5-5.0); Albumin Globulin Ratio 0.9 (1.0-2.8); Alkaline Phosphatase 57 U/L (38-126); Aspartate Aminotransferase 35 IU/L (17-59); BUN Creatinine Ratio 24.7 (6-22); Bilirubin Total 0.4 mg/dL (0.2-1.3); Blood Urea Nitrogen 22 mg/dL (9-20); Calcium 8.5 mg/dL (8.4-10.2); Carbon Dioxide 16 mmol/L (22-32); Chloride 107 mmol/L (98-107); Creatine Kinase 66 U/L (55-170); Estimated Glomerular Filt Rate > 60 mL/min (>60); Globulin 3.1 g/dL (1.7-4.1); Glucose 179 mg/dL (80-110); HEMOLYSIS < 15 (0-50); Sodium 131 mmol/L (137-145)
[2024-02-05 22:35] LABS: Culture Indicated Urine Cult Not Indicated
[2024-02-05 22:36] LABS: Anisocytosis 1+; Burr Cells 1+; Lactate (Lactic Acid) 2.1 mmol/L (0.7-2.1); Microcytosis 1+; Ovalocytes 1+; Platelet Estimate Increased on smear
[2024-02-05 22:52] LABS: Procalcitonin 0.39 ng/mL (<0.5)
[2024-02-05 23:29] LABS: Adenovirus Not Detected (Not Detect); B. parapertussis Not Detected (Not Detecte); Bordetella pertussis Not Detected (Not Detect); Chlamydophila pneumoniae Not Detected (Not Detect); Coronavirus 229E Not Detected (Not Detect); Coronavirus HKU1 Not Detected (Not Detect); Coronavirus NL 63 Not Detected (Not Detect); Coronavirus OC43 Not Detected (Not Detect); Human Metapneumovirus Not Detected (Not Detect); Human Rhinovirus/Enterovirus Not Detected (Not Detect); Influenza A Not Detected (Not Detect); Influenza B Not Detected (Not Detect); Mycoplasma pneumoniae Not Detected (Not Detect); Parainfluenza Virus 1 Not Detected (Not Detect); Parainfluenza Virus 2 Not Detected (Not Detect); Parainfluenza Virus 3 Not Detected (Not Detect); Parainfluenza Virus 4 Not Detected (Not Detect); Respiratory Syncytial Virus Not Detected (Not Detect); SARS- CoV-2 Not Detected (Not Detecte)
[2024-02-05 23:42] LABS: Reflexed Lactate in 2 Hours Y
[2024-02-06] VITALS (26 sets, daily range): BP systolic 99–168; BP diastolic 52–107; PULSE 74–130; RESP 15–25; TEMP 36.5–38.9; O2SAT 92–97; BMI 23.1
[2024-02-06 00:26] LABS: Troponin I 0.051 ng/mL (0.01-0.034)
--- NOTE | 2024-02-06 02:55 | PC.NURSE ---
Pt lactate @ 02/05/24 @ 21:59 is 2.1 Second draw @ 02/06/24 00:29 is 1.0, but due to a computer error, is completed in computer at 02/04 @ 00:29. Confirmed with lab correct date and draw time, and a note was added to the result clarifying time of draw. Admitting RN made aware of change.
[2024-02-06] MEDS: SODIUM CHLORIDE 0.9% 1,000 ML 100 ML IV ×2 (03:03→14:42)
[2024-02-06] MEDS: MORPHINE 4 MG/ML INJ 3 MG IV (03:16)
[2024-02-06] MEDS: ACETAMINOPHEN 325 MG TABLET 650 MG PO ×2 (03:38→21:46)
--- NOTE | 2024-02-06 04:00 | DI.CT.S_ITS ---
PROCEDURE: CT HEAD/BRAIN WO CON INDICATIONS: altered mental status TECHNIQUE: Noncontrast 4.5 mm thick angled axial sections acquired from the foramen magnum to the vertex, with coronal and sagittal reformats. For radiation dose reduction, the following was used: automated exposure control, adjustment of mA and/or kV according to patient size. COMPARISON: [facility], CT, CT HEAD/BRAIN WO CON, 02/03/2024, 20:21. FINDINGS: Image quality: Diagnostic. CSF spaces: Basal cisterns are patent. No extra-axial fluid collections. The ventricles are symmetric in size and shape. Brain: No intracranial bleeds or masses. There is cerebral volume loss for age, with resultant ventricular and sulcal prominence. There are severe periventricular and deep white matter chronic small vessel ischemic changes. There is intracranial internal carotid artery atherosclerosis. Skull and face: Calvarium and visualized facial bones appear intact, without suspicious lesions. Sinuses: Visualized sinuses and mastoids are clear. IMPRESSION: 1. Age-related volume loss and severe small vessel ischemic change. 2. No acute intracranial process noted. Comment: Final report is concordant with preliminary interpretation provided by [facility]. Dictated by: Ezequiel Collier M.D. on 02/06/2024 at 7:49 Approved by: Ezequiel Collier M.D. on 02/06/2024 at 7:49
--- NOTE | 2024-02-06 04:01 | PM.HP.1 ---
History of Present Illness History of Present Illness Date Patient Seen: 02/06/24 Time Patient Seen: 04:01 Chief complaint: fever, confusion Narrative: The pt is a 83 yo who was just discharged from our hospital after being treated for pneumonia and returns to the ER by his due to weakness and confusion. The pt was reported to have been doing well with therapy yesterday, 02/05/24 and was discharged home in the afternoon but the states he was just not ready and had difficulty with ambulation once home. She was not available in the room during my interview but she reports to the ER that his fevers at home were 103 F. During my interview she was unable to answer any of my questions or the nurses questions, I do not know what his baseline function is. 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 notes. [facility] Social History household members: spouse Smoking Status: Former smoker alcohol intake: former Meds Home Medications and Allergies Home Medications Medication Instructions Recorded Confirmed Type loteprednol etabonate 0.5 % eye 0.5 ea OP BID ##0 06/01/12 02/06/24 History ointment (Lotemax) levothyroxine 50 mcg tablet 88 mcg PO QAM ##0 09/19/17 02/06/24 History primidone 50 mg tablet 150 mg PO DAILY 02/09/22 02/06/24 History cyclosporine 0.05 % eye drops in a 1 drp ophthalmic (eye) BID 11/30/22 02/06/24 History dropperette (Restasis) latanoprost 0.005 % eye drops 1 drp ophthalmic (eye) BEDTIME 11/30/22 02/06/24 History apixaban 5 mg tablet (Eliquis) 5 mg PO BID 01/06/24 02/06/24 History carboxymethylcellulose 0.5 1 drp ophthalmic (eye) PRN PRN Eye 02/03/24 02/06/24 History %-glycerin 0.9 % eye drops Irritation (Refresh Optive) carboxymethylcellulose sodium 1 % 1 drp ophthalmic (eye) BID 02/03/24 02/06/24 History eye drops in a dropperette dorzolamide-timolol (PF) 2 %-0.5 % 1 drp ophthalmic (eye) BID 02/03/24 02/06/24 History eye drops in a dropperette (Cosopt (PF)) pravastatin 20 mg tablet 20 mg PO BEDTIME 02/03/24 02/06/24 History amoxicillin 875 mg-potassium 1 tab PO BID 4 days #8 tabs 02/05/24 02/06/24 Rx clavulanate 125 mg tablet azithromycin 500 mg tablet 500 mg PO DAILY 1 day #1 tab 02/05/24 02/06/24 Rx tamsulosin 0.4 mg capsule 0.8 mg PO BEDTIME 02/06/24 02/06/24 History Allergies Allergy/AdvReac Type Severity Reaction Status Date / Time No Known Drug Allergies Allergy Verified 02/05/24 22:05 Exam Vital Signs (past 8 hours): - 02/05/24 21:49 02/05/24 21:54 02/05/24 21:55 Temperature 102.9 F H Pulse Rate 98 H 95 H Respiratory Rate 20 23 Blood Pressure 98/54 L 98/56 L Pulse Oximetry 96 95 Oxygen Delivery Method Room Air Oxygen Flow Rate 02/05/24 21:55 02/05/24 22:00 02/05/24 22:00 Temperature Pulse Rate 94 H 93 H Respiratory Rate 31 H 28 H Blood Pressure 101/56 L Pulse Oximetry 94 94 Oxygen Delivery Method Oxygen Flow Rate 02/05/24 22:15 02/05/24 22:15 02/05/24 22:30 Temperature Pulse Rate 99 H 87 Respiratory Rate 26 H 24 Blood Pressure 92/51 L Pulse Oximetry 94 92 Oxygen Delivery Method Oxygen Flow Rate 02/05/24 22:30 02/05/24 22:45 02/05/24 22:45 Temperature Pulse Rate 87 Respiratory Rate 24 Blood Pressure 110/58 L 101/58 L Pulse Oximetry 93 Oxygen Delivery Method Oxygen Flow Rate 02/05/24 23:00 02/05/24 23:00 02/05/24 23:15 Temperature 99.2 F Pulse Rate 80 Respiratory Rate 24 Blood Pressure 106/55 L 107/58 L Pulse Oximetry 94 Oxygen Delivery Method Room Air Oxygen Flow Rate 02/05/24 23:15 02/05/24 23:30 02/05/24 23:30 Temperature Pulse Rate 80 80 Respiratory Rate 25 H 28 H Blood Pressure 108/57 L Pulse Oximetry 95 93 Oxygen Delivery Method Oxygen Flow Rate 02/05/24 23:45 02/05/24 23:45 02/05/24 23:59 Temperature Pulse Rate 81 81 Respiratory Rate 30 H 25 H Blood Pressure 114/56 L Pulse Oximetry 94 94 Oxygen Delivery Method Oxygen Flow Rate 02/06/24 00:00 02/06/24 00:00 02/06/24 00:15 Temperature Pulse Rate 80 Respiratory Rate 24 Blood Pressure 107/59 L 107/55 L Pulse Oximetry 94 Oxygen Delivery Method Oxygen Flow Rate 02/06/24 00:15 02/06/24 00:30 02/06/24 00:30 Temperature Pulse Rate 77 81 Respiratory Rate 24 24 Blood Pressure 110/59 L Pulse Oximetry 94 94 Oxygen Delivery Method Oxygen Flow Rate 02/06/24 00:45 02/06/24 00:45 02/06/24 01:00 Temperature Pulse Rate 78 Respiratory Rate 21 Blood Pressure 116/58 L 110/59 L Pulse Oximetry 92 Oxygen Delivery Method Oxygen Flow Rate 02/06/24 01:00 02/06/24 01:15 02/06/24 01:15 Temperature Pulse Rate 79 78 Respiratory Rate 23 23 Blood Pressure 109/57 L Pulse Oximetry 93 94 Oxygen Delivery Method Oxygen Flow Rate 02/06/24 01:30 02/06/24 01:30 02/06/24 01:45 Temperature Pulse Rate 81 Respiratory Rate 22 Blood Pressure 111/59 L 109/56 L Pulse Oximetry 94 Oxygen Delivery Method Oxygen Flow Rate 02/06/24 01:45 02/06/24 02:00 02/06/24 02:00 Temperature Pulse Rate 79 84 Respiratory Rate 23 23 Blood Pressure 111/58 L Pulse Oximetry 94 94 Oxygen Delivery Method Room Air Oxygen Flow Rate 02/06/24 02:15 02/06/24 02:15 02/06/24 02:30 Temperature Pulse Rate 86 Respiratory Rate 25 H Blood Pressure 117/58 L 121/59 L Pulse Oximetry 95 Oxygen Delivery Method Room Air Oxygen Flow Rate 02/06/24 02:30 02/06/24 03:06 02/06/24 03:38 Temperature 99.6 F 101.4 F H Pulse Rate 100 H Respiratory Rate 22 Blood Pressure Pulse Oximetry 95 94 Oxygen Delivery Method Room Air Room Air Oxygen Flow Rate 02/06/24 03:45 Temperature Pulse Rate 130 H Respiratory Rate 24 Blood Pressure 168/107 H Pulse Oximetry 94 Oxygen Delivery Method Oxygen Flow Rate 0 Oxygen Delivery Method Room Air Oxygen Flow Rate 0 Const General: acute distress and ill appearing Resp Auscultation: clear to auscultation bilaterally Other: on RA, no distress Cardio Rate: tachycardic Rhythm: regular rhythm GI Auscultation: normal bowel sounds Objective Labs 02/05/24 21:59 02/05/24 21:59 Labs: Laboratory Results - last 24 hr 02/05/24 02/05/24 02/05/24 00:29 21:59 22:06 WBC 8.9 RBC 4.46 L Hgb 11.7 L Hct 35.3 L MCV 79.2 L MCH 26.2 MCHC 33.0 RDW 21.8 H Plt Count 405 H Neut % (Auto) 80.8 H Lymph % (Auto) 13.3 L [place] % (Auto) 3.8 Eos % (Auto) 1.4 L Baso % (Auto) 0.7 Neut # (Auto) 7100 H Lymph # (Auto) 1200 [place] # (Auto) 300 Eos # (Auto) 100 Baso # (Auto) 100 Platelet Estimate Increased on smear RBC Morphology See below Anisocytosis 1+ H Microcytosis 1+ H Ovalocytes 1+ H [place] Cells 1+ H Sodium 131 L Potassium 4.0 Chloride 107 Carbon Dioxide 16 L BUN 22 H Creatinine 0.89 Estimated GFR > 60 BUN/Creatinine Ratio 24.7 H Glucose 179 H Lactate 1.0 2.1 Calcium 8.5 Total Bilirubin 0.4 AST 35 ALT 62 H Alkaline Phosphatase 57 Total Creatine Kinase 66 Troponin I 0.050 H Total Protein 6.0 L Albumin 2.9 L Globulin 3.1 Albumin/Globulin Ratio 0.9 L Procalcitonin 0.39 Urine Color Yellow Urine Appearance Clear Urine pH 6.0 Ur Specific [place] 1.025 Urine Protein 2+ H Urine Glucose (UA) Negative Urine Ketones 1+ H Urine Occult Blood 3+ H Urine Nitrate Negative Urine Bilirubin Negative Urine Urobilinogen 0.2 Ur Leukocyte Esterase Negative Urine RBC 10-30/hpf H Urine WBC None seen Ur Squamous Epith Cells 0-1 /hpf Urine Bacteria None seen Ur Culture Indicated? Cult not indicated Vol Urine Centrifuged 10ml (spun) Chlamy pneumoniae PCR Adenovirus (PCR) B.parapertussis DNA PCR Coronavirus OC43 (PCR) Coronavirus HKU1 (PCR) Coronavirus 229E (PCR) SARS-CoV-2 (PCR) Coronavirus NL63 (PCR) Human Metapneumovir PCR Influenza Type A (PCR) Influenza Type B (PCR) M. pneumoniae (PCR) Parainfluenza 1 (PCR) Parainfluenza 2 (PCR) Parainfluenza 3 (PCR) Parainfluenza 4 (PCR) RSV (PCR) Entero/Rhino (PCR) 02/05/24 02/05/24 22:11 23:57 WBC RBC Hgb Hct MCV MCH MCHC RDW Plt Count Neut % (Auto) Lymph % (Auto) [place] % (Auto) Eos % (Auto) Baso % (Auto) Neut # (Auto) Lymph # (Auto) [place] # (Auto) Eos # (Auto) Baso # (Auto) Platelet Estimate RBC Morphology Anisocytosis Microcytosis Ovalocytes Lisa Cells Sodium Potassium Chloride Carbon Dioxide BUN Creatinine Estimated GFR BUN/Creatinine Ratio Glucose Lactate Calcium Total Bilirubin AST ALT Alkaline Phosphatase Total Creatine Kinase Troponin I 0.051 H Total Protein Albumin Globulin Albumin/Globulin Ratio Procalcitonin Urine Color Urine Appearance Urine pH Ur Specific [place] Urine Protein Urine Glucose (UA) Urine Ketones Urine Occult Blood Urine Nitrate Urine Bilirubin Urine Urobilinogen Ur Leukocyte Esterase Urine RBC Urine WBC Ur Squamous Epith Cells Urine Bacteria Ur Culture Indicated? Vol Urine Centrifuged Chlamy pneumoniae PCR Not detected Adenovirus (PCR) Not detected B.parapertussis DNA PCR Not detected Coronavirus OC43 (PCR) Not detected Coronavirus HKU1 (PCR) Not detected Coronavirus 229E (PCR) Not detected SARS-CoV-2 (PCR) Not detected Coronavirus NL63 (PCR) Not detected Human Metapneumovir PCR Not detected Influenza Type A (PCR) Not detected Influenza Type B (PCR) Not detected M. pneumoniae (PCR) Not detected Parainfluenza 1 (PCR) Not detected Parainfluenza 2 (PCR) Not detected Parainfluenza 3 (PCR) Not detected Parainfluenza 4 (PCR) Not detected RSV (PCR) Not detected Entero/Rhino (PCR) Not detected Assessment & Plan Assessment & Plan narrative: 1. Sepsis- tachycardic, low BP, with fevers. Labs reviewed and are normal with a WBC of 8.9 but does have an elevated procalcitonin, he was admitted previously for a pneumonia but CXR tonight does not show infiltrates, on RA, will restart Cefepime, discharged on aumentin. tylenol prn, 2. metabolic encephalopathy- unknown what is baseline is, but he is non-verbal for me and states this is not his normal. CT head ordered now, previously was normal on admit several days ago. 3. CLL- paliative measure/ treatment only, uncertain how much his presenting symptoms are due to this.
--- NOTE | 2024-02-06 05:23 | PC.NURSE ---
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 Patient is alert and oriented to self, place, year & situation (somewhat). Appears to have episodes of somnolence and has difficulty expressing words at times. Patient is hypertensive (168/107) although arms are shaking and BP is difficult to obtain, tachycardic (HR 130's), tachypneic (resp 24), O2 saturation 94% on RA, temp 101.4 (oral) on arrival. Placed patient on tele, 12-lead EKG complete. Lung sounds are CTA. Denies chest pain, N/V. Complaints of back pain that he states is chronic. MD Callahan notified of findings, head CT ordered & completed. IVF infusing as ordered. 3mg IV Morphine given for pain, PO Tylenol given & ice packs placed for fever. Gonzalez in place draining clear, yellow urine. Plan of care ongoing. 529 update: Patient no longer shivering, tremors in hands appeared to have calmed down. Vitals retaken. Temp: 100.4 (oral). Patient appears more alert and responding to questions. O2 saturation 89% while asleep, placed patient on 2L NC, O2 saturation up to 95%. Plan of care ongoing.
[2024-02-06 05:36] LABS: Add Manual Diff / Slide Review NO; Basophils Absolute Auto 100 /uL (0-100); Basophils Percent Auto 0.9 % (0-2); Eosinophils Absolute Auto 0 /uL (0-450); Eosinophils Percent Auto 0.5 % (2-4); Hematocrit 32.8 % (41-53); Hemoglobin 10.8 g/dL (13.5-17.5); Lymphocytes Absolute Auto 1300 /uL (1100-4500); Mean Corpuscular HGB Conc 32.9 % (30-36); Mean Corpuscular Hemoglobin 26.1 PG (26-34); Mean Corpuscular Volume 79.2 fL (80-100); Monocytes Absolute Auto 400 /uL (0-900); Monocytes Percent Auto 4.5 % (3-14); Neutrophils Absolute Auto 6800 /uL (1500-7000); Neutrophils Percent Auto 79.1 % (50-75); Platelet Count 391 X10^3/uL (150-400); Red Blood Cell Count 4.14 X10^6/uL (4.5-5.9); White Blood Cell Count 8.5 X10^3/uL (4.5-11.0)
[2024-02-06 05:51] LABS: Alanine Aminotransferase 52 IU/L (<50); Albumin 2.6 g/dL (3.5-5.0); Albumin Globulin Ratio 0.9 (1.0-2.8); Alkaline Phosphatase 49 U/L (38-126); Aspartate Aminotransferase 30 IU/L (17-59); BUN Creatinine Ratio 21.7 (6-22); Bilirubin Total 0.4 mg/dL (0.2-1.3); Blood Urea Nitrogen 18 mg/dL (9-20); Calcium 7.6 mg/dL (8.4-10.2); Carbon Dioxide 18 mmol/L (22-32); Chloride 109 mmol/L (98-107); Estimated Glomerular Filt Rate > 60 mL/min (>60); Globulin 2.9 g/dL (1.7-4.1); Glucose 107 mg/dL (80-110); HEMOLYSIS < 15 (0-50); Potassium 3.8 mmol/L (3.4-5.1); Sodium 132 mmol/L (137-145); Total Protein 5.5 g/dL (6.3-8.2)
[2024-02-06 05:58] LABS: Anisocytosis 1+; Microcytosis 1+; Platelet Estimate Adequate on smear
[2024-02-06 05:59] LABS: Burr Cells 1+; Ovalocytes 1+
[2024-02-06 06:57] LABS: Troponin I 0.256 ng/mL (0.01-0.034)
--- NOTE | 2024-02-06 07:42 | PM.HP.1 ---
History of Present Illness History of Present Illness Date Patient Seen: 02/06/24 Chief complaint: fever, confusion Narrative: From night doctor: The pt is a 83 yo who was just discharged from our hospital after being treated for pneumonia and returns to the ER by his due to weakness and confusion. The pt was reported to have been doing well with therapy yesterday, 02/05/24 and was discharged home in the afternoon but the states he was just not ready and had difficulty with ambulation once home. She was not available in the room during my interview but she reports to the ER that his fevers at home were 103 F. During my interview she was unable to answer any of my questions or the nurses questions, I do not know what his baseline function is. 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 notes. He was discharged 02/04 with a diagnosis of pneumonia and urinary retention. He is complaining of bilateral hip pain which may relate to his hospital bed. He denies a cough, or shortness a breath. He has had some degree of delirium. He had been here on antibiotics and discharged yesterday for a probable pneumonia. He has a Philippe catheter in place which relates to retention. Over a L was removed when the catheter was initially placed. He has been taking Flomax for about the last 2 weeks. He denies new skin rash or lesions. He has been having erratic temperature responses to his new cancer therapy medication. [facility] Social History household members: spouse Smoking Status: Former smoker alcohol intake: former Meds Home Medications and Allergies Home Medications Medication Instructions Recorded Confirmed Type loteprednol etabonate 0.5 % eye 0.5 ea OP BID ##0 06/01/12 02/06/24 History ointment (Lotemax) levothyroxine 50 mcg tablet 88 mcg PO QAM ##0 09/19/17 02/06/24 History primidone 50 mg tablet 150 mg PO DAILY 02/09/22 02/06/24 History cyclosporine 0.05 % eye drops in a 1 drp ophthalmic (eye) BID 11/30/22 02/06/24 History dropperette (Restasis) latanoprost 0.005 % eye drops 1 drp ophthalmic (eye) BEDTIME 11/30/22 02/06/24 History apixaban 5 mg tablet (Eliquis) 5 mg PO BID 01/06/24 02/06/24 History carboxymethylcellulose 0.5 1 drp ophthalmic (eye) PRN PRN Eye 02/03/24 02/06/24 History %-glycerin 0.9 % eye drops Irritation (Refresh Optive) carboxymethylcellulose sodium 1 % 1 drp ophthalmic (eye) BID 02/03/24 02/06/24 History eye drops in a dropperette dorzolamide-timolol (PF) 2 %-0.5 % 1 drp ophthalmic (eye) BID 02/03/24 02/06/24 History eye drops in a dropperette (Cosopt (PF)) pravastatin 20 mg tablet 20 mg PO BEDTIME 02/03/24 02/06/24 History amoxicillin 875 mg-potassium 1 tab PO BID 4 days #8 tabs 02/05/24 02/06/24 Rx clavulanate 125 mg tablet azithromycin 500 mg tablet 500 mg PO DAILY 1 day #1 tab 02/05/24 02/06/24 Rx tamsulosin 0.4 mg capsule 0.8 mg PO BEDTIME 02/06/24 02/06/24 History Allergies Allergy/AdvReac Type Severity Reaction Status Date / Time No Known Drug Allergies Allergy Verified 02/05/24 22:05 Review of Systems Review of Systems Narrative: All else reviewed and otherwise unremarkable except as noted in the H&P. Exam Vital Signs (past 8 hours): - 02/05/24 23:45 02/05/24 23:45 02/05/24 23:59 Temperature Pulse Rate 81 81 Respiratory Rate 30 H 25 H Blood Pressure 114/56 L Pulse Oximetry 94 94 Oxygen Delivery Method Oxygen Flow Rate 02/06/24 00:00 02/06/24 00:00 02/06/24 00:15 Temperature Pulse Rate 80 Respiratory Rate 24 Blood Pressure 107/59 L 107/55 L Pulse Oximetry 94 Oxygen Delivery Method Oxygen Flow Rate 02/06/24 00:15 02/06/24 00:30 02/06/24 00:30 Temperature Pulse Rate 77 81 Respiratory Rate 24 24 Blood Pressure 110/59 L Pulse Oximetry 94 94 Oxygen Delivery Method Oxygen Flow Rate 02/06/24 00:45 02/06/24 00:45 02/06/24 01:00 Temperature Pulse Rate 78 Respiratory Rate 21 Blood Pressure 116/58 L 110/59 L Pulse Oximetry 92 Oxygen Delivery Method Oxygen Flow Rate 02/06/24 01:00 02/06/24 01:15 02/06/24 01:15 Temperature Pulse Rate 79 78 Respiratory Rate 23 23 Blood Pressure 109/57 L Pulse Oximetry 93 94 Oxygen Delivery Method Oxygen Flow Rate 02/06/24 01:30 02/06/24 01:30 02/06/24 01:45 Temperature Pulse Rate 81 Respiratory Rate 22 Blood Pressure 111/59 L 109/56 L Pulse Oximetry 94 Oxygen Delivery Method Oxygen Flow Rate 02/06/24 01:45 02/06/24 02:00 02/06/24 02:00 Temperature Pulse Rate 79 84 Respiratory Rate 23 23 Blood Pressure 111/58 L Pulse Oximetry 94 94 Oxygen Delivery Method Room Air Oxygen Flow Rate 02/06/24 02:15 02/06/24 02:15 02/06/24 02:30 Temperature Pulse Rate 86 Respiratory Rate 25 H Blood Pressure 117/58 L 121/59 L Pulse Oximetry 95 Oxygen Delivery Method Room Air Oxygen Flow Rate 02/06/24 02:30 02/06/24 03:06 02/06/24 03:38 Temperature 99.6 F 101.4 F H Pulse Rate 100 H Respiratory Rate 22 Blood Pressure Pulse Oximetry 95 94 Oxygen Delivery Method Room Air Room Air Oxygen Flow Rate 02/06/24 03:45 02/06/24 05:04 02/06/24 05:47 Temperature 100.4 F H Pulse Rate 130 H 85 Respiratory Rate 24 18 Blood Pressure 168/107 H 114/52 L Pulse Oximetry 94 93 Oxygen Delivery Method Room Air Oxygen Flow Rate 0 0 02/06/24 06:40 Temperature 98.9 F Pulse Rate Respiratory Rate Blood Pressure Pulse Oximetry 97 Oxygen Delivery Method Oxygen Flow Rate 2 Oxygen Delivery Method Room Air Oxygen Flow Rate 2 Narrative Exam Narrative: NAD, alert and oriented, fluent speech, anxious. Normocephalic skull, EOMI, anicteric sclera, symmetric pupils. Oropharynx unremarkable, no droop. Neck supple, midline trachea, no adenopathy. Lungs clear, normal rate and effort. Heart regular, no murmur gallop or rub. Abdomen is soft, non distended and non tender. Extremities are free of edema. Skin is free of rash or lesions. Joints are not swollen or deformed. Judgment appears to be normal. moving around a lot. Objective Imaging Chest x-ray: Radiologist's impression: IMPRESSION: Low lung volumes bilaterally with stable bibasilar atelectasis or consolidations. Labs 02/06/24 05:24 02/06/24 05:24 Labs: Laboratory Results - last 24 hr 02/05/24 02/05/24 02/05/24 00:29 21:59 22:06 WBC 8.9 RBC 4.46 L Hgb 11.7 L Hct 35.3 L MCV 79.2 L MCH 26.2 MCHC 33.0 RDW 21.8 H Plt Count 405 H Neut % (Auto) 80.8 H Lymph % (Auto) 13.3 L [place] % (Auto) 3.8 Eos % (Auto) 1.4 L Baso % (Auto) 0.7 Neut # (Auto) 7100 H Lymph # (Auto) 1200 [place] # (Auto) 300 Eos # (Auto) 100 Baso # (Auto) 100 Platelet Estimate Increased on smear RBC Morphology See below Anisocytosis 1+ H Microcytosis 1+ H Ovalocytes 1+ H [place] Cells 1+ H Sodium 131 L Potassium 4.0 Chloride 107 Carbon Dioxide 16 L BUN 22 H Creatinine 0.89 Estimated GFR > 60 BUN/Creatinine Ratio 24.7 H Glucose 179 H Lactate 1.0 2.1 Calcium 8.5 Total Bilirubin 0.4 AST 35 ALT 62 H Alkaline Phosphatase 57 Total Creatine Kinase 66 Troponin I 0.050 H Total Protein 6.0 L Albumin 2.9 L Globulin 3.1 Albumin/Globulin Ratio 0.9 L Procalcitonin 0.39 Urine Color Yellow Urine Appearance Clear Urine pH 6.0 Ur Specific [place] 1.025 Urine Protein 2+ H Urine Glucose (UA) Negative Urine Ketones 1+ H Urine Occult Blood 3+ H Urine Nitrate Negative Urine Bilirubin Negative Urine Urobilinogen 0.2 Ur Leukocyte Esterase Negative Urine RBC 10-30/hpf H Urine WBC None seen Ur Squamous Epith Cells 0-1 /hpf Urine Bacteria None seen Ur Culture Indicated? Cult not indicated Vol Urine Centrifuged 10ml (spun) Chlamy pneumoniae PCR Adenovirus (PCR) B.parapertussis DNA PCR Coronavirus OC43 (PCR) Coronavirus HKU1 (PCR) Coronavirus 229E (PCR) SARS-CoV-2 (PCR) Coronavirus NL63 (PCR) Human Metapneumovir PCR Influenza Type A (PCR) Influenza Type B (PCR) M. pneumoniae (PCR) Parainfluenza 1 (PCR) Parainfluenza 2 (PCR) Parainfluenza 3 (PCR) Parainfluenza 4 (PCR) RSV (PCR) Entero/Rhino (PCR) 02/05/24 02/05/24 02/06/24 22:11 23:57 05:24 WBC 8.5 RBC 4.14 L Hgb 10.8 L Hct 32.8 L MCV 79.2 L MCH 26.1 MCHC 32.9 RDW 22.0 H Plt Count 391 Neut % (Auto) 79.1 H Lymph % (Auto) 15.0 L [place] % (Auto) 4.5 Eos % (Auto) 0.5 L Baso % (Auto) 0.9 Neut # (Auto) 6800 Lymph # (Auto) 1300 [place] # (Auto) 400 Eos # (Auto) 0 Baso # (Auto) 100 Platelet Estimate Adequate on smear RBC Morphology See below Anisocytosis 1+ H Microcytosis 1+ H Ovalocytes 1+ H [place] Cells 1+ H Sodium 132 L Potassium 3.8 Chloride 109 H Carbon Dioxide 18 L BUN 18 Creatinine 0.83 Estimated GFR > 60 BUN/Creatinine Ratio 21.7 Glucose 107 Lactate Calcium 7.6 L Total Bilirubin 0.4 AST 30 ALT 52 H Alkaline Phosphatase 49 Total Creatine Kinase Troponin I 0.051 H 0.256 H* Total Protein 5.5 L Albumin 2.6 L Globulin 2.9 Albumin/Globulin Ratio 0.9 L Procalcitonin Urine Color Urine Appearance Urine pH Ur Specific [place] Urine Protein Urine Glucose (UA) Urine Ketones Urine Occult Blood Urine Nitrate Urine Bilirubin Urine Urobilinogen Ur Leukocyte Esterase Urine RBC Urine WBC Ur Squamous Epith Cells Urine Bacteria Ur Culture Indicated? Vol Urine Centrifuged Chlamy pneumoniae PCR Not detected Adenovirus (PCR) Not detected B.parapertussis DNA PCR Not detected Coronavirus OC43 (PCR) Not detected Coronavirus HKU1 (PCR) Not detected Coronavirus 229E (PCR) Not detected SARS-CoV-2 (PCR) Not detected Coronavirus NL63 (PCR) Not detected Human Metapneumovir PCR Not detected Influenza Type A (PCR) Not detected Influenza Type B (PCR) Not detected M. pneumoniae (PCR) Not detected Parainfluenza 1 (PCR) Not detected Parainfluenza 2 (PCR) Not detected Parainfluenza 3 (PCR) Not detected Parainfluenza 4 (PCR) Not detected RSV (PCR) Not detected Entero/Rhino (PCR) Not detected Assessment & Plan Assessment & Plan narrative: 1. Sepsis- tachycardic, low BP, with fevers. Labs reviewed and are normal with a WBC of 8.9 but does have an elevated procalcitonin, he was admitted previously for a pneumonia but CXR tonight does not show infiltrates, on RA, will restart Cefepime, discharged on aumentin. tylenol prn -we will continue broad-spectrum antibiotics and follow cultures. 2. Metabolic encephalopathy- unknown what is baseline is, but he is non-verbal for me and states this is not his normal. CT head ordered now, previously was normal on admit several days ago. -he is able to respond to questions appropriately today. We will continue to follow clinically. 3. CLL- paliative measure/ treatment only, uncertain how much his presenting symptoms are due to this. -he missed his therapy last , we will send an electronic message to his oncologist today advising him of readmission. 4. Bilateral pneumonia, present on admission and active. -Patient was placed on IV cefepime and azithromycin to cover atypicals. He is now improved overall and stable on room air. He denies any shortness of breath. 5. Urinary retention, active. H/O BPH by history. -Will resume his usual home medications. Philippe catheter will be placed. 1.5L out of bladder with philippe placement. F/up outpatient with urology. 6. Diffuse B-cell lymphoma, present on admission and active. -Continue outpatient follow-up with Oncology 7. Essential tremor, stable. -Continue primidone Met with in the patient in the room. I will contact their oncologist today to alert him of his readmission. Patient is full resuscitation. is proxy. Estimated time to discharge will be 2-3 days pending improvement of clinical course. Time Spent With Patient Time with patient: 30 to 49 minutes with 50% spent counseling/coordinating care Quality MIPS - Admit I confirm the patient?s Advance Care Plan is present, Code status is documented, Surrogate decision maker is in patient?s record [If Yes, STOP here]: Yes MIPS - Meds 'Current medications' to include all prescriptions, [id number] products, herbals, cannabis/cannabidiol products, and vitamin/mineral/dietary (nutritional) supplements. I have utilized all available resources to obtain, update, or review the patient?s current medications. [If Yes, STOP here]: Yes
[2024-02-06] MEDS: PRIMIDONE 50 MG TABLET 150 MG PO (08:12)
[2024-02-06] MEDS: DORZOLAMIDE/TIMOLOL OPHTH 10 ML 1 DROPS EYE-BOTH ×2 (08:13→22:09)
[2024-02-06] MEDS: APIXABAN 5 MG TABLET PO ×2 (08:13→22:29)
--- NOTE | 2024-02-06 08:51 | PT-IP ANOTE ---
PT treated pt yesterday in the acute setting and he was d/cd after treatment. Pt went home and then was readm with fever. His troponin is high and unsure trend yet. New PT consult order received and spoke with Dr. Casas who requests PT hold today. Will check back next date after reviewing how patient does today and his labs.
--- NOTE | 2024-02-06 09:39 | OT.IPNOTE ---
Discussed pt with PTsering who spoke with Dr. Casas this AM. Dr. Casas requesting therapies to hold for today. Will hold and continue to follow.
--- NOTE | 2024-02-06 10:16 | ST.IPCSEOM ---
Visit Care Team Role Provider Type EARL Orellana Primary Care Provider Non-Staff Specialty: Family Practice Address: [place], [address] Email: Darcy Salas MD Emergency Provider Physician Specialty: Emergency Medicine Address: [address] [place], [address] Email: [email or web address] Mansoor Callahan MD Admit Provider Physician Attending Provider Specialty: Internal Medicine Address: [address] [place], [address] Fax: Email: [email or web address] (Closed) Speech-Language Pathology Swallow Evaluation DOMINATRIX Clinical Swallow Evaluation Start: 02/06/24 09:51 Freq: Status: Active Protocol: Document 02/06/24 09:51 CG (Rec: 02/06/24 10:16 CG [id number]) Clinical Swallow Evaluation Session Time Visit Start Time 09:10 Visit Stop Time 09:30 Total Visit Minutes 20 Visit Information Visit Number [address] Mansoor Callahan Reason for Referral per nursing, aphasia and pocketing pills Setting Assessment Location Acute Care Visit Type Note Type Initial evaluation Patient Information Identification Type Name History Per H&P: The pt is a 83 yo who was just discharged from our hospital after being treated for pneumonia and returns to the ER by his due to weakness and confusion. The pt was reported to have been doing well with therapy yesterday, 02/05/24 and was discharged home in the afternoon but the states he was just not ready and had difficulty with ambulation once home. She was not available in the room during my interview but she reports to the ER that his fevers at home were 103 F. During my interview she was unable to answer any of my questions or the nurses questions, I do not know what his baseline function is. 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 notes. He was discharged 02/04 with a diagnosis of pneumonia and urinary retention. Pt referred to ST due to night nurse noting some pocketing of pills and expressive aphasia. Subjective Observations Pt was seated partially upright in bed with breakfast tray present. He was awake, alert, and oriented to time, place, person, and purpose. He did have difficulty finding his call light, which was in his bed under a blanket, so may have some lingering reduced orientation/problem solving capacity from when he was febrile. He had already consumed approximately 50% of his breakfast tray, including one sausage and some scrambled eggs. He also had coffee and ice water present. Pt reported he had had no difficulty with swallowing breakfast, but that he has difficulty getting the food to his mouth due to tremor in his right hand. DOMINATRIX repositioned pt upright 90 degrees before assisting pt with PO trials. Reported by Patient/Caregiver Other Symptoms Difficulty swallowing pills Comment Nursing reported that the pt was pocketing pills overnight. The IDDSI Framework Protocol: IDDSI.1 Objective Assessment Mental Status Alert,Responsive,Cooperative Oral Integrity Oral residue Dentition Within normal limits Lip Function Mild impairment Pucker Reduced range of motion, Reduced strength Lip Retraction Reduced range of motion Alternating Pucker/Lip Retraction Reduced range of motion Tongue Function Within normal limits Observations of Tongue at Rest Involuntary movement(s) Tongue Protrusion Within normal limits Tongue Lateralization Within normal limits Jaw Function Mild impairment Jaw Closing Reduced strength Comment OME revealed mild oral residue on dentition; but generally WFL. Dentition is natural and intact; adequate for mastication. Lingual ROM and strength was mildly reduced, with reduced ROM on pucker/ smile alternation task. Masseter appeared mildly weak/ atrophied on palpation, but likely still WFL. Vocal quality clear. Articulation and intelligibility WFL. Food and Liquid Trials Position During Assessment Slightly reclined Liquids Trialed Thin (IDDSI 0) Solid Trials Soft & Bite-sized (IDDSI 6), Regular (IDDSI 7) Administration Type Needs some assistance Oral Impairment Within functional limits Oral Phase Comments Pt was trialed with bites of scrambled eggs and bites of orange slice, as well as sips of ice water. For scrambled eggs (IDDSI 5) and orange slices (IDDSI 7) pt demonstrated good oral acceptance and containment, mildly prolongued mastication time, relatively timely bolus formation and A-P transit. Pharyngeal swallow initiation appeared timely. Mild lingual residue remained after the swallow. Pt was observed to independently utilize lingual sweep to clear oral cavity after bites of eggs. Pt did require assistance to get food on fork and place fork in hand. Once in hand, he was able to raise food to his oral cavity independently. For sips ice water (IDDSI 0) via straw, pt demonstrated adequate suction, good oral containment and bolus hold, and apparently timely and coordinated A-P transit with initiation of pharyngeal swallow appearing timely. Independent with holding cup and bringing to mouth for sips . Pharyngeal Impairment Within functional limits Pharyngeal Phase Comments For scrambled eggs (IDDSI 5) and orange slices (IDDSI 7) pt demonstrated no overt s/sx aspiration (note, however, that silent aspiration cannot be ruled out without an instrumental assessment). Pt did not report globus sensation or pain with swallowing. Vocal quality after swallows was clear. No cough/throat clear. For ice water (IDDSI 0), pt demonstrated audible swallow which may indicate discoordination of swallow reflex, but within context of overall swallow performance appears negligible. Pt demonstrated no overt s/sx aspiration/penetration (note, however, that silent aspiration cannot be ruled out without an instrumental assessment). Vocal quality after swallow was clear. No cough/throat clear observed. Fatigue/Endurance Endurance WNL Results Pt's overall swallow function appears WFL at this time. Per nurse, pt was febrile and weak overnight. Suspect that pocketing behavior and speech difficulties observed overnight were likely a result of fever causing weakness and altered mental status. Now that pt is awake, alert, upright, and oriented, swallowing and speech appear WFL. DOMINATRIX called kitchen to request that the pt be provided with build up utensils to promote independence with self feeding . The IDDSI Framework Protocol: IDDSI.1 Findings Swallowing Function Within functional limits Contributing Factors to Swallow Reduced alertness or attention Impairment Comments Likely 2/ fever-induced AMS Recommendations Instrumental Assessment No Swallowing Treatment No Recommended Solids Easy to Chew (IDDSI 7) Recommended Liquids Thin (IDDSI 0) Other Recommendations Built up utensils Safety Precautions/Swallowing 1 to 1 distant supervision,Set Recommendations -up assistance,Check for pocketing Medication Recommendations As Tolerated Discharge Recommendations Home,Home with Home Health Education Patient/Caregiver Education Described results of evaluation,Patient expressed understanding of evaluation
[2024-02-06] MEDS: ASPIRIN EC 81 MG TABLET PO (10:30)
[2024-02-06] MEDS: CEFEPIME 2 GM in SODIUM CHLORIDE 0.9% 100 ML IV ×2 (10:31→22:43)
--- NOTE | 2024-02-06 11:56 | DIET.CONS ---
Dietary Consultation Note Admission Date: 02/06/2024 01:06 Assessment: 83 y M admitted for weakness and confusion. Nutrition consulted for severe weight loss. RD visited pt at bedside and spoke to pt's . reports 30 lb weight loss since October and a decrease in appetite resulting in meal consumption being around 25-50% less than normal. Reports pt struggles to consumes 1 Boost/Ensure per day. works to help increase pt's protein intake. Nutrition focused physical exam not able to be performed at this time. Ht: 182 cm Wt: 76.7 kg BMI: 23.1 UBW: 86.4 kg Last BM: 02/06/24 (02/06/24 04:00) MNA: 6 Javier Score: 18 Diet: 02/06/24 Breakfast General (Regular) Diet Diet Modifications: Labs: RBC 4.14 X10^6/uL (4.5-5.9) L 02/06/24 05:24 Hgb 10.8 g/dL (13.5-17.5) L 02/06/24 05:24 Hct 32.8 % (41-53) L 02/06/24 05:24 Creatinine 0.83 mg/dL (0.66-1.25) 02/06/24 05:24 Lactate 2.1 mmol/L (0.7-2.1) 02/05/24 21:59 Nutrition Diagnosis: Severe chronic protein calorie malnutrition r/t decrease in appetite as evidenced by 11% weight loss within 6 months (severe) and <75% of estimated energy requirement for >1 month. Interventions: Ordered Ensure Enlive/Plus vanilla 1x/day. Encouraged adequate protein, reviewed different sources, and encouraged use of high kcal/high protein ONS like Ensure Enlive/Plus. EER: 3680-9370 kcals per day (25 kcals/kg) 115-130 grams protein per day (1.5-1.7) Monitoring/Evaluations: ONS tolerance, PO intake Electronically Signed by: Diana Cochran 02/06/24 11:56 Clinical Dietitian [address] [address]
[2024-02-06] MEDS: HYDROCODONE/ACET 5/325 TABLET 2 TAB PO (12:08)
--- NOTE | 2024-02-06 14:52 | CM.DANOTE ---
Addendum entered by SATISH Aguayo 02/06/24 15:20: FACILITY MECHANIC was able to meet with pt , Piper, at bedside. Pt was asleep. FACILITY MECHANIC discussed anticipated discharge plans and inquired about preferences. Pt's discussed she is in a holding pattern and will await plans for dc home vs. hospice. Pt endorsed that home is already outfitted for safety and DME; still declining any possible referral to HH at this time. Plan: Following pending PT/OT recommendations. Will monitor for evolving discharge plans. Original Note: DCP Assessment Note Pt is a 83yo M, resident [facility], who lives at home with his spouse, Piper ( ). Pt has a hx of lymphoma and has been re-admitted for fever and confusion. Pt was previously admitted on for progressing weakness and lethargy. PCP: Kiah Naqvi Payer: Medicare Reviewed chart and team rounds for pt's medical status and initial discharge needs. FACILITY MECHANIC was not able to meet with pt or family at bedside due to pt's lethargy/somnolence and working with other services; spouse was not in room during FACILITY MECHANIC multiple attempts to meet with pt. Plan: PT/OT have been consulted but are on hold today. Pt and spouse declined HH at previous admission. FACILITY MECHANIC will follow if thoughts have changed regarding more support at home. CM team will plan to follow clinical course closely for assessment of need and coordination of discharge plan. SATISH Barr Discharge Planning/Care Management CM Discharge Assessment Start: 02/06/24 14:35 Freq: Status: Active Protocol: Document 02/06/24 14:38 MW (Rec: 02/06/24 14:51 MW [id number]) Discharge Planning Assessment Assigned [employer] SATISH Oliver DPOA/Assigned Designee Name Piper Spouse Contact Information [phone] Advance Directives? Yes Advance Directives on File Yes History Provided By Medical Record Has Patient been admitted in last 30 Yes days? Comment Admitted for progressing weakness and lethargy. Prior Living Arrangements House Household Members spouse Type of transporation used prior to Relies on Others admit Independent with ADL's No Is patient alert and oriented? Yes Needs Assistance With Bathing,Toileting,Home Chores / Shopping Caregiver for Another No Comment Pending recommendation from PT /OT evaluations (on hold for today, 3.11), stabilization with nutrition. Patient/Family Preference Home with Home Health Discharge Plan Home with Home Health Whiteboard Updated in Patient Room with No name and ext. # of [employer] Comment FACILITY MECHANIC attempted to meet with pt multiple times but pt was too somnolent or working with other services. Please Provide Date Initial DC 02/06/24 Assessment Was Performed Next Review Type Continued Stay Review
[2024-02-06 19:25] LABS: Troponin I 0.251 ng/mL (0.01-0.034)
[2024-02-06] MEDS: METOPROLOL IR 25 MG TABLET 12.5 MG PO (21:46)
[2024-02-06] MEDS: PRAVASTATIN 20 MG TABLET PO (21:46)
[2024-02-06] MEDS: TAMSULOSIN 0.4 MG CAPSULE 0.8 MG PO (21:46)
[2024-02-06] MEDS: CARBOXYMETHYLCELLULOSE SODIUM 1% 1 EACH EYE-BOTH (22:22)
[2024-02-06] MEDS: LOTEPREDNOL ETABONATE 0.5% EYE-BOTH (22:23)
[2024-02-06] MEDS: CYCLOSPORINE 0.05% 1 EACH EYE-BOTH (22:23)
[2024-02-06] MEDS: OPTH EYE-BOTH (22:23)
[2024-02-07] VITALS (12 sets, daily range): BP systolic 98–139; BP diastolic 46–68; PULSE 74–119; RESP 16–24; TEMP 36.5–40; O2SAT 95–97
[2024-02-07] MEDS: SODIUM CHLORIDE 0.9% 1,000 ML 100 ML IV ×2 (01:02→21:09)
[2024-02-07] MEDS: ACETAMINOPHEN 325 MG TABLET 650 MG PO ×2 (05:09→14:05)
[2024-02-07] MEDS: LEVOTHYROXINE 50 MCG TABLET 88 MCG PO (05:09)
--- NOTE | 2024-02-07 06:26 | PC.NURSE ---
shift supervisor film processing: Patient appeared somnolent and fatigued throughout the night, only answering yes/no questions. Patient awoke this morning much more alert. Accurately stated name, birthday, place, & year. Not quite sure about situation. Vital signs are stable, O2 saturation 96% on 1L NC. Temp: 99.6. PO Tylenol given Q6hrs. PO meds given crushed w/ applesauce. IVF infusing. Gonzalez in place draining clear, yellow urine. Q2 turning. SCDs are on. Denies pain. Plan of care ongoing.
--- NOTE | 2024-02-07 08:39 | PT-IP ANOTE ---
Holding Physical Therapy evaluation at this time. His Troponin continues to be elevated at 0.251. Will continue to follow as he becomes more medically able to participate in therapy.
[2024-02-07] MEDS: APIXABAN 5 MG TABLET PO ×2 (09:00→21:30)
[2024-02-07] MEDS: ASPIRIN EC 81 MG TABLET PO (09:00)
[2024-02-07] MEDS: PRIMIDONE 50 MG TABLET 100 MG PO (09:00)
[2024-02-07] MEDS: METOPROLOL IR 25 MG TABLET 12.5 MG PO ×2 (09:04→21:31)
[2024-02-07] MEDS: DORZOLAMIDE/TIMOLOL OPHTH 10 ML 1 DROPS EYE-BOTH ×2 (09:04→21:32)
[2024-02-07] MEDS: CARBOXYMETHYLCELLULOSE SODIUM 1% 1 EACH EYE-BOTH ×2 (09:05→21:32)
[2024-02-07] MEDS: CYCLOSPORINE 0.05% 1 EACH EYE-BOTH ×2 (09:05→21:32)
[2024-02-07] MEDS: OPTH EYE-BOTH ×2 (09:05→21:32)
[2024-02-07] MEDS: LOTEPREDNOL ETABONATE 0.5% EYE-BOTH ×2 (09:05→21:32)
--- NOTE | 2024-02-07 10:02 | ST.IPDYTX ---
Visit Care Team Role Provider Type EARL Orellana Primary Care Provider Non-Staff Specialty: Family Practice Address: [address], [place], [address] Email: Darcy Salas MD Emergency Provider Physician Specialty: Emergency Medicine Address: [address] [place] [address], [id number] Email: [email or web address] [email or web address] Callahan MD Admit Provider Physician Attending Provider Specialty: Internal Medicine Address: [address] [place] [address], [address] Fax: Email: [email or web address] SET UP OPERATOR Dysphagia Treatment [employer]ING [employer] SET UP OPERATOR Dysphagia Treatment Start: 02/07/24 09:49 Freq: Status: Active Protocol: Document 02/07/24 09:49 CG (Rec: 02/07/24 10:02 CG [id number]) Dysphagia Treatment Session Time Visit Start Time 09:25 Visit Stop Time 09:40 Total Visit Minutes 15 Visit Information Visit Number 2 Setting Assessment Location Acute Care Patient Information Subjective Observations Pt was seated upright in bed with breakfast tray present. He was awake, alert, and oriented to time, place, person, and purpose. He had already eaten some billy and was in the process of eating a fruit cup (solid bite sized pieces of honeydew, pineapple, grapes). Per nursing, pt became disoriented overnight with speech difficulties. Meds were presented crushed in applesauce as a precaution last night. His mentation is much improved this morning. Treatment Liquids Trialed Thin (IDDSI 0) Solids Trialed Regular (IDDSI 7) Administration Type Cup Consecutive Sips,Straw Oral Strategies Upright at 90 degrees Treatment Activities Diet analysis with breakfast tray and consecutive sips thin liquid. Informal assessment of orientation/mentation. Consultation with nursing re: overnight changes. Provided assistance with feeding throughout trials due to hand mobility difficulties 2/tremor . Updated diet, calling kitchen to request food cut up to bite sized pieces. The IDDSI Framework Protocol: IDDSI.1 Assessment Assessment of Improvement Pt appeared oriented again this morning and responded appropriately to all questions . He was observed to consume a whole fruit cup of melons, grapes, etc with no overt s/sx aspiration (though silent aspiration cannot be ruled out without an instrumental assessment). Pt was observed to sip 4 serial sips of thin water from cup with no overt s /sx aspiration penetration ( silent aspiration cannot be ruled out without an instrumental assessment). Oral motor movement does appear generally weakened, with slow lingual movements and some discoordination with bolus acceptance, though this is exacerbated by hand mobility issues. Pt had built up utensils present on tray today as requested. This improved self -feeding abilities, but pt was still having difficulty skewering fruit pieces on fork and eventually requested assistance. Most of his entree was still on his plate in one solid piece. Given that the pt has been losing weight, recommended having food cut up into bite sized pieces to eliminate any barriers to PO intake. Pt would likely benefit from OT, but OT orders being withheld based on labs at this time. Pt's mentation and speech/ swallowing abilities appear to fluctuate overnight, with sundown-like symptoms impacting his speech, orientation, and swallowing abilities. Reccomend continue to monitor pt based on fluctuating status. Recommend feed only when alert; crush meds in applesauce (if appropriate per pharmacist) as needed when mentation decreases. Recommendations Comment Have solids cut up Liquids Order Thin (IDDSI 0) Diet Order Easy to Chew (IDDSI 7) Medication Recommendations As Tolerated Additional Dietary Needs Chopped Food Treatment Plan Placement Recommendation after Discharge Home with Home Health Appropriate for Continued Therapy Yes: monitor fluctuating status
--- NOTE | 2024-02-07 10:59 | PM.PN.1 ---
Subjective Subjective Interval history: He feels weak but feels much better than yesterday. He is much more awake. No dyspnea, no cough. No pain. Exam Vital Signs (past 8 hours): - 02/07/24 03:00 02/07/24 04:20 02/07/24 04:32 Temperature 99.0 F Pulse Rate 102 H 106 H Respiratory Rate 22 Blood Pressure 125/54 L Pulse Oximetry 95 96 95 Oxygen Delivery Method Nasal Cannula Nasal Cannula Oxygen Flow Rate 1 2 1 02/07/24 06:26 02/07/24 08:00 Temperature 99.6 F 99 F Pulse Rate 78 Respiratory Rate 18 Blood Pressure 98/46 L Pulse Oximetry 95 Oxygen Delivery Method Oxygen Flow Rate 2 Oxygen Delivery Method Nasal Cannula Oxygen Flow Rate 2 Narrative Exam Narrative: Objective Labs 02/06/24 05:24 02/06/24 05:24 Labs: Laboratory Results - last 24 hr 02/06/24 17:53 Troponin I 0.251 H* PFSH Social History household members: spouse Smoking Status: Former smoker alcohol intake: former Assessment & Plan Assessment & Plan narrative: 1. Sepsis, present on admission and improving.- tachycardic, low BP, with fevers. -He is better. Will continue IV antibiotics. All improved. 2. Metabolic encephalopathy, present on admission and improving. 3. CLL- paliative measure/ treatment only, present on admission and stable. 4. Bilateral pneumonia, present on admission and active. Appears to be improving. -Patient was placed on IV cefepime and azithromycin to cover atypicals. 5. Urinary retention, active. H/O BPH by history. -Will resume his usual home medications. Philippe catheter will be placed. 1.5L out of bladder with philippe placement. F/up outpatient with urology. 6. Diffuse B-cell lymphoma, present on admission and active. -Continue outpatient follow-up with Oncology. 7. Essential tremor, stable. -Continue primidone.
[2024-02-07] MEDS: CEFEPIME 2 GM in SODIUM CHLORIDE 0.9% 100 ML IV ×2 (12:08→23:21)
--- NOTE | 2024-02-07 12:40 | DI.ECHO.S_ITS ---
Version: 1 Study ID: [id number] [id number] [place] [address] Name: RAMÓN ROMERO Study Date: 02/07/2024, 12: 40 PM : 1940 BP: 99 / 54 mmHg Gender: Male Height: 71 in Age: 83 Years Weight: 169 lb BSA: 1.96 m?? Ordering: CAESAR LYNCH Referring: CAESAR LYNCH Clinician: Zack Pate Reason For Study: ELEVATED TROPONIN History: Summary Statements Limited echo to evaluate etiology of dyspnea, focusing on LV and RV function. Technically difficult EKG tracing complicated by significant tremor. Can not comment on rhythm Normal LV size and wall thickness; EF is 55-60%. Mildly dilated RV. Estimated PA systolic pressure is 68 mm Hg assuming RA pressure of 10 mm Hg. Compared to prior echo 11/27/2023, RV is more dilated. PA systolic pressure is up from 35 to 68 mm Hg. Procedure: A two-dimensional transthoracic echocardiogram with color flow and Doppler was performed in limited views only. The study quality was technically adequate. Comparison is made with the echocardiogram of 11/27/2023. PROBABLE BIGEMINY. Left Ventricle: Due to the poor quality of the echocardiogram, an assessment of left ventricular ejection fraction cannot be made. The left ventricle is normal in size and wall thickness. Right Ventricle: There is a pacemaker lead in the right ventricle. Atria: There is a catheter/pacemaker lead seen in the right atrium. Mitral Valve: There is trace mitral regurgitation. The mitral valve is grossly normal. Aortic Valve: There is trace aortic regurgitation. The aortic valve is grossly normal. Tricuspid Valve: There is moderate tricuspid regurgitation. The tricuspid valve is not well visualized, but is grossly normal. Pulmonic Valve: There is a trace or physiologic amount of pulmonic regurgitation. The pulmonic valve is not well visualized. Great Vessels: The dimensions of the ascending aorta are normal. The aortic root is normal size. Pericardium/ Pleura: There is no pericardial effusion. There is no pleural effusion. 2D and M-Mode Measurements and Calculations LVIDd: 5.5 cm asc Aorta Diam: 3.3 cm LVIDs: 3.5 cm IVSd: 1.06 cm LVPWd: 1.04 cm LV orellana. diameter/BSA (cm/m^2): 2.8 LV sys. diameter/BSA (cm/m^2): 1.76 Doppler Measurements and Calculations TR max bjorn: 382.9 cm/sec TR max P.6 mmHg Electronically signed by: Barb Kwon M.D. 02/07/2024, 6: 45 PM
--- NOTE | 2024-02-07 13:16 | CM.DPC ---
DCP Continued Reviewed EMR and team rounds for pt?s medical status. PT/OT still being held. Per hospitalist, Monitoring results from echo and pt's strength/progress. CM Team will continue to follow for coordination of discharge plans. SATISH Barr
[2024-02-07] MEDS: MORPHINE 4 MG/ML INJ 3 MG IV (14:05)
--- NOTE | 2024-02-07 14:58 | PT-IP ANOTE ---
Attempted Physical Therapy evaluation. Patient reports he is very tired. Pt fell asleep during this conversation. Pt too fatigued to participate in evaluation at this time. Will check back tomorrow. No family in room at this time.
--- NOTE | 2024-02-07 15:01 | OT.IP.EVAL ---
Current Diagnoses Sepsis, unspecified organism (02/06/24) Occupational Therapy Inpatient Evaluation/Re-Eval M2 OT-IP Current Condition Start: 02/07/24 14:22 Freq: Status: Active Protocol: Document 02/07/24 11:30 MARTY (Rec: 02/07/24 15:01 [facility] [id number]) Occupational Therapy Current Condition Current Condition Evaluation Date 02/07/24 Treatment Diagnosis sepsis, metabolic encephalopathy Diagnosis Onset Date 02/05/24 M3 OT- IP Subjective and Pain Start: 02/07/24 14:22 Freq: Status: Active Protocol: Document 02/07/24 11:30 MARTY (Rec: 02/07/24 15:01 [facility] [id number]) OT- Subjective Occupational Therapy Visit Type Type Initial Evaluation Visit Start Time 10:55 Visit Stop Time 11:30 Notes Pt in bed in somewhat upright position with spouse present on entrance of OT. Pt was agreeable to participating in OT evaluation. Occupational Therapy Visit Comments Patient/Caregiver Goals Pt's spouse says she needs pt to be able to move around because she is unable to pick him up. Pt reports that the fire department had to come get him prior to this hospitalization. OT Pain Assessment Pain When Pain Assessed At Rest Pain Present Pain Present Denied Pain M4 OT- IP ADL's Start: 02/07/24 14:22 Freq: Status: Active Protocol: Document 02/07/24 11:30 MARTY (Rec: 02/07/24 15:01 [facility] [id number]) OT LQS-[id number]-[id number] Comments OT Self-Feeding Comments not observed OT ADL-Grooming Comments OT Grooming Comments pt declined at this time, my can help me OT ADL-Oral Care Comments Oral Care Comments pt declined OT ADL-Dressing Comments OT Dressing Comments pt declined. Per spouse he has not been able to perform since recent decline after last d/c. OT ADL-Toileting Comments OT Toileting Comments pt declined. Per spouse reports that she has had to help with urinal prior to catheter placement. Pt has not been able to perform his own toileting needs since last d/c from hospital. OT ADL-Bathing Comments OT Bathing Comments pt declined. Per spouse, he is currently dependent. M5 OT- IP IADL's Start: 02/07/24 14:22 Freq: Status: Active Protocol: Document 02/07/24 11:30 MARTY (Rec: 02/07/24 15:01 [facility] [id number]) OT-Instrumental Activities of Daily Living Home Safety Awareness Awareness of Need for Assistance at Home Good Awareness Ability to Problem Solve Emergency Able to Problem Solve Situations Medication Management Medication Management Caregiver Administers Money Management Money Management Caregiver Provides Assistance Meal Preparation Meal Preparation Caregiver Provides Assist Belt Buckle Maker Belt Buckle Maker Caregiver Provides Assist Driving Driving Caregiver Provides Assist M6 OT- IP Functional Cognition Start: 02/07/24 14:22 Freq: Status: Active Protocol: Document 02/07/24 11:30 MRATY (Rec: 02/07/24 15:01 [facility] [id number]) Cognitive Factors Limiting Selfcare Function Cognitive Ability Level of Alertness Alert Patient Orientation Name,Age,Date,Place,Situation Attention Span Ability Capable of Focused Attention, Capable of Sustained Attention Ability to Follow Commands Able to Follow Multi-Step Commands,Able to Follow One Step Commands with Increased Time Memory Description No Deficits Noted Safety Awareness No Deficits Noted Problem Solving Ability No deficits Noted Executive Function Ability No Deficits Noted Abstract Thinking Ability No Deficits Noted Cognitive Comments Cognitive Assessment Comments Pt slow to answer questions, but is able given time. OT- Vision and Hearing OT- Hearing Assessment OT- Hearing Assessment WFL OT- Vision Assessment Visual Acuity WFL,Glasses All The Time M7 OT- IP Mobility and Balance Start: 02/07/24 14:22 Freq: Status: Active Protocol: Document 02/07/24 11:30 MARTY (Rec: 02/07/24 15:01 [facility] [id number]) OT- Bed Mobility Assessment Supine to Sit Supine to Sit Assist Maximum Assistance,1 Person Assistance,Head of Bed Elevated,Bedrails Sit to Supine Sit to Supine Assist Maximum Assistance,1 Person Assistance,Head of Bed Elevated,Bedrails Scooting Scooting to Edge of Bed Moderate Assistance,Bedrails Scooting Up and Down in Bed Minimal Assistance OT-Transfer Assessment Sit to and From Stand Sit to and from Stand Moderate Assistance,1 Person Assistance,Use of Upper Extremities Technique Transfer Destination Bed Devices Transfer Assistive Devices Gait Belt,Front Wheeled Walker Comments Mobility Comments Pt performed all mvmts slowly and tires quickly. Pt felt SOB once EOB, O2 sat on 1 L 02 was 89, it returned to 96 with PLB technique in about 15 seconds. Pt leans heavily to the right while sitting EOB and during standing as well. Pt UB tremors when standing. Pt able to barely lift feet from floor for several side steps to HOB. Pt stood for ~8 minutes with vcs to stand tall and look forward. OT- Gait Assessment Gait Gait Assistance Required: Contact Guard Assist,Minimum Assistance Distance (Feet) 4 Assistive Devices Assistive Device Gait Belt,4 Wheeled Walker Comments Gait Ability Comments lateral steps performed slowly over the course of several mintues. OT- Balance Assessment Sitting Balance and Reactions Static Sitting Balance Ability Poor Dynamic Sitting Balance Ability Poor Standing Balance and Reactions Static Standing Balance Ability Poor Dynamic Standing Balance Ability Poor M8 OT- IP Objective Assessments Start: 02/07/24 14:22 Freq: Status: Active Protocol: Document 02/07/24 11:30 MARTY (Rec: 02/07/24 15:01 [facility] [id number][facility] OT Gross Range of Motion Upper Extremity Range of Motion ROM Impairments B shoulders limited to approximately 90 degrees of scaption, otherwise ROM is WFL OT Strength Hand Heavy Equipment Service Technician Strength Hand Dominance Right Comments Strength Comments grossly pt's R UE is 3+/5, L UE is 3/5 OT- Coordination Assessment Upper Extremity Finger to Nose Test Within Functional Limits Finger Tapping Test Within Functional Limits OT-Muscle Tone Assessment Muscle Tone WNL Yes OT Sensation Assessment Edema Edema Present Edema Comments B LE pitting edema +1 M9 OT- IP Assessment and Plan Start: 02/07/24 14:22 Freq: Status: Active Protocol: Document 02/07/24 11:30 MARTY (Rec: 02/07/24 15:01 [facility] [id number]) OT Summary Assessment and Plan Potential Rehabilitation Potential Fair Analytic Complexity at Evaluation High Summary OT Impairments Range of Motion,Strength, Balance,Functional Mobility Progress Towards Goals Slow Progress due to Medical Issues,Slow Progress due to Activity Tolerance Assessment Summary The pt is a 83 yo who was just discharged from our hospital after being treated for pneumonia on 02/04 and returns to the ER by his due to weakness and confusion on 02/05 . The pt was reported to have been doing well with therapy yesterday and was discharged home in the afternoon but the states he was just not ready and had difficulty with ambulation once home. She reports to the ER that his fevers at home were 103 F. 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 Pt participated in OT eval, requiring extra time to answer questions and perform all tasks. Pt spouse present for eval. Pt declined ADLs at time of eval, based on pt's decreased activity tolerance, muscle weakness, decreased balance, and decreased functional mobility, OT believes pt will benefit from skilled services to also address BADLs. Pt was I with this prior to most recent hospitalizations per spouse. Skilled OT services appropriate to address pt deficits and promote return to PLOF. Goals Self-Feeding Goal Independent Grooming Goal Standby Assistance Dressing Goal Minimal Assistance Toileting Goal Standby Assistance Bathing Goal Minimal Assistance Toilet Transfer Goal Minimal Assistance,Moderate Assistance Shower Transfer Goal Minimal Assistance,Moderate Assistance Patient/Caregiver Education Goal Caregiver Independent Assisting Patient Days to Meet Goals 10 Frequency of Treatment Frequency Of Treatment Once a Day Treatment Plan OT Treatment Plan ADL Training,Functional Mobility,Therapeutic Exercises ,Patient/Family Education, Discharge Planning Other Treatment Recommendations and Next AE training Treatment Focus Discharge Recommendations OT Discharge Recommendations Home Health,Home vs SNF
[2024-02-07 19:52] LABS: Add Manual Diff / Slide Review NO; Basophils Absolute Auto 100 /uL (0-100); Basophils Percent Auto 0.9 % (0-2); Eosinophils Absolute Auto 0 /uL (0-450); Eosinophils Percent Auto 0.1 % (2-4); Hematocrit 32.7 % (41-53); Hemoglobin 10.8 g/dL (13.5-17.5); Lymphocytes Absolute Auto 1900 /uL (1100-4500); Lymphocytes Percent Auto 18.5 % (25-40); Mean Corpuscular HGB Conc 32.9 % (30-36); Mean Corpuscular Hemoglobin 25.8 PG (26-34); Mean Corpuscular Volume 78.4 fL (80-100); Monocytes Absolute Auto 100 /uL (0-900); Monocytes Percent Auto 1.2 % (3-14); Neutrophils Absolute Auto 8000 /uL (1500-7000); Neutrophils Percent Auto 79.3 % (50-75); Platelet Count 354 X10^3/uL (150-400); Red Blood Cell Count 4.18 X10^6/uL (4.5-5.9); White Blood Cell Count 10.1 X10^3/uL (4.5-11.0)
[2024-02-07] MEDS: VANCOMYCIN 1,000 MG/200 ML PIGGYBACK 200 MG IV (19:56)
[2024-02-07 20:08] LABS: Alanine Aminotransferase 59 IU/L (<50); Albumin 2.7 g/dL (3.5-5.0); Albumin Globulin Ratio 0.9 (1.0-2.8); Alkaline Phosphatase 57 U/L (38-126); Aspartate Aminotransferase 77 IU/L (17-59); BUN Creatinine Ratio 19.1 (6-22); Bilirubin Total 0.3 mg/dL (0.2-1.3); Blood Urea Nitrogen 17 mg/dL (9-20); Calcium 8.2 mg/dL (8.4-10.2); Carbon Dioxide 20 mmol/L (22-32); Chloride 105 mmol/L (98-107); Estimated Glomerular Filt Rate > 60 mL/min (>60); Globulin 3.1 g/dL (1.7-4.1); Glucose 121 mg/dL (80-110); HEMOLYSIS < 15 (0-50); Potassium 3.6 mmol/L (3.4-5.1); Sodium 129 mmol/L (137-145); Total Protein 5.8 g/dL (6.3-8.2)
[2024-02-07 20:17] LABS: Anisocytosis 2+; Microcytosis 1+; Ovalocytes 2+
[2024-02-07 20:22] LABS: Troponin I 0.185 ng/mL (0.01-0.034)
[2024-02-07] MEDS: ACETAMINOPHEN IV 1,000 MG/100 ML VIAL 400 MG IV (21:09)
--- NOTE | 2024-02-07 21:30 | PC.NURSE ---
Pt had trouble drinking water with the straw and cough after thin liquids sitting up at 90 degrees. Pt had night time medications due which the patient did well swallowing pills whole in pudding. Added nectar thicken to water and patient tolerated well at 90 degrees. No coughing noted after intake. May benefit from ST eval
[2024-02-07] MEDS: PRAVASTATIN 20 MG TABLET PO (21:31)
[2024-02-07] MEDS: TAMSULOSIN 0.4 MG CAPSULE 0.8 MG PO (21:32)
[2024-02-07] MEDS: PRIMIDONE 50 MG TABLET PO (21:34)
[2024-02-08] VITALS (9 sets, daily range): BP systolic 98–132; BP diastolic 55–64; PULSE 71–103; RESP 16–24; TEMP 36.3–39.5; O2SAT 91–99
[2024-02-08] MEDS: LEVOTHYROXINE 50 MCG TABLET 88 MCG PO (06:41)
--- NOTE | 2024-02-08 07:51 | P.PN_ITS ---
Subjective Subjective Interval history: He is awake today and did defervesce overnight. He had a high temperature of 104 last night in his at 100 today. He had altered mental status with his fever last night but is awake and able to answer questions today. He is having some lumbar pain. He denies any dyspnea, no obvious cough. Exam Vital Signs (past 8 hours): - 02/08/24 03:00 02/08/24 04:59 Temperature 98.0 F Pulse Rate 75 Respiratory Rate 16 Blood Pressure 99/55 L Pulse Oximetry 91 99 Oxygen Delivery Method Nasal Cannula Oxygen Flow Rate 2 2 Oxygen Delivery Method Nasal Cannula Oxygen Flow Rate 2 Narrative Exam Narrative: NAD, alert and oriented. Slow speech. Lungs are clear, normal rate and effort. Heart is regular, no murmur gallop or rub. Abdomen is soft, non distended. Extremities are free of edema. Objective Imaging CT scan - chest: Radiologist's impression: 1. No pulmonary embolus. No thoracic aortic aneurysm. 2. Interval development of small to moderate size right lower lobe infiltrate and smaller left lower lobe infiltrate as above. 3. Scattered atelectasis in periphery of bilateral lung canela. Stable patient's known bilateral subcentimeter pulmonary nodules. 4. Interval increase in size of patient's known large left axillary mass. Stable appearing mildly enlarged mediastinal and right hilar lymph nodes as well as prominent retroperitoneal lymph nodes in visualized upper abdomen. Labs 02/07/24 19:30 02/07/24 19:30 Labs: Laboratory Results - last 24 hr 02/07/24 19:30 WBC 10.1 RBC 4.18 L Hgb 10.8 L Hct 32.7 L MCV 78.4 L MCH 25.8 L MCHC 32.9 RDW 22.0 H Plt Count 354 Neut % (Auto) 79.3 H Lymph % (Auto) 18.5 L [place] % (Auto) 1.2 L Eos % (Auto) 0.1 L Baso % (Auto) 0.9 Neut # (Auto) 8000 H Lymph # (Auto) 1900 [place] # (Auto) 100 Eos # (Auto) 0 Baso # (Auto) 100 RBC Morphology See below Anisocytosis 2+ H Microcytosis 1+ H Ovalocytes 2+ H Sodium 129 L Potassium 3.6 Chloride 105 Carbon Dioxide 20 L BUN 17 Creatinine 0.89 Estimated GFR > 60 BUN/Creatinine Ratio 19.1 Glucose 121 H Calcium 8.2 L Total Bilirubin 0.3 AST 77 H ALT 59 H Alkaline Phosphatase 57 Troponin I 0.185 H* Total Protein 5.8 L Albumin 2.7 L Globulin 3.1 Albumin/Globulin Ratio 0.9 L PFSH Social History household members: spouse Smoking Status: Former smoker alcohol intake: former Assessment & Plan Assessment & Plan narrative: 1. Sepsis, worse last night with fever.- tachycardic, low BP, with fevers. -He is better. Will continue IV antibiotics. Added Vanco evening of 02/06. . 2. Metabolic encephalopathy, present on admission and improving. 3. CLL- paliative measure/ treatment only, present on admission and stable. 4. Bilateral pneumonia, present on admission and active. Appears to be improving. -Patient was placed on IV cefepime and azithromycin to cover atypicals. 5. Urinary retention, active. H/O BPH by history. -Will resume his usual home medications. Philippe catheter will be placed. 1.5L out of bladder with philippe placement. F/up outpatient with urology. 6. Diffuse B-cell lymphoma, present on admission and active. -Continue outpatient follow-up with Oncology. 7. Essential tremor, stable. -Continue primidone. Plan: We will continue antibiotics today. Him discussing the situation with his primary oncologist. The question is whether or not his fevers relate to his cancer in any way. The patient did have some increased tumor size noted on his CT on February 02. Specifically his left axilla mass. He also has mediastinal and right hilar lymph nodes which appear to be mildly enlarged. In addition he does have prominent retroperitoneal lymph nodes. He is complaining of back pain today, possibility that some of his lymphadenopathy is relating to that pain complaint.
[2024-02-08] MEDS: SODIUM CHLORIDE 0.9% 1,000 ML 100 ML IV (07:52)
[2024-02-08] MEDS: VANCOMYCIN 1,000 MG/200 ML PIGGYBACK 200 MG IV ×2 (07:52→18:54)
[2024-02-08] MEDS: OXYCODONE IR 5 MG TABLET PO (08:57)
[2024-02-08] MEDS: PRIMIDONE 50 MG TABLET 100 MG PO (08:57)
[2024-02-08] MEDS: APIXABAN 5 MG TABLET PO ×2 (08:57→20:24)
[2024-02-08] MEDS: METOPROLOL IR 25 MG TABLET 12.5 MG PO (08:57)
[2024-02-08] MEDS: ACETAMINOPHEN 325 MG TABLET 650 MG PO (08:57)
[2024-02-08] MEDS: DORZOLAMIDE/TIMOLOL OPHTH 10 ML 1 DROPS EYE-BOTH ×2 (08:58→20:24)
[2024-02-08] MEDS: ASPIRIN EC 81 MG TABLET PO (08:58)
[2024-02-08] MEDS: CYCLOSPORINE 0.05% 1 EACH EYE-BOTH (08:58)
[2024-02-08] MEDS: CEFEPIME 2 GM in SODIUM CHLORIDE 0.9% 100 ML IV ×2 (10:53→21:43)
--- NOTE | 2024-02-08 11:33 | OT.IPNOTE ---
Chart reviewed and discussed with Dr. Casas. Per Dr. Casas, ok to discharge from OT and P.T. services given pt's inability to participate at this time. Will discharge the order and communicate to P.T.
[2024-02-08 11:56] LABS: Hematocrit 30.7 % (41-53); Hemoglobin 10.2 g/dL (13.5-17.5); Mean Corpuscular HGB Conc 33.3 % (30-36); Mean Corpuscular Hemoglobin 26.2 PG (26-34); Mean Corpuscular Volume 78.4 fL (80-100); Platelet Count 336 X10^3/uL (150-400); Red Blood Cell Count 3.92 X10^6/uL (4.5-5.9); Red Cell Distribution Width 22.1 % (11.6-14.8); White Blood Cell Count 8.3 X10^3/uL (4.5-11.0)
[2024-02-08 12:13] LABS: Alanine Aminotransferase 68 IU/L (<50); Albumin 2.5 g/dL (3.5-5.0); Albumin Globulin Ratio 0.8 (1.0-2.8); Alkaline Phosphatase 58 U/L (38-126); Aspartate Aminotransferase 88 IU/L (17-59); Bilirubin Total 0.4 mg/dL (0.2-1.3); Blood Urea Nitrogen 18 mg/dL (9-20); Calcium 8.2 mg/dL (8.4-10.2); Carbon Dioxide 20 mmol/L (22-32); Chloride 106 mmol/L (98-107); Estimated Glomerular Filt Rate > 60 mL/min (>60); Glucose 100 mg/dL (80-110); HEMOLYSIS < 15 (0-50); Potassium 3.5 mmol/L (3.4-5.1); Sodium 131 mmol/L (137-145); Total Protein 5.5 g/dL (6.3-8.2)
--- NOTE | 2024-02-08 12:19 | PT-IP ANOTE ---
Will discharge Physical Therapy since pt can not participate in therapy at this time. Please re-order when pt able to participate.
--- NOTE | 2024-02-08 13:22 | ST.IPDYTX ---
Visit Care Team Role Provider Type EARL Orellana Primary Care Provider Non-Staff Specialty: Family Practice Address: [place], [address] Email: Darcy Salas MD Emergency Provider Physician Specialty: Emergency Medicine Address: [address] [place] [address], [id number] Email: Mansoor Callahan MD Admit Provider Physician Attending Provider Specialty: Internal Medicine Address: [address] [place] [address], [id number] Fax: Email: [email or web address] ACCOUNT COLLECTOR Dysphagia Treatment ACCOUNT COLLECTOR Dysphagia Treatment Start: 02/07/24 09:49 Freq: Status: Active Protocol: Document 02/08/24 13:10 CG (Rec: 02/08/24 13:22 CG [id number]) Dysphagia Treatment Session Time Visit Start Time 11:59 Visit Stop Time 12:09 Total Visit Minutes 10 Visit Information Visit Number 3 Setting Assessment Location Acute Care Patient Information Subjective Observations Pt was seated partially reclined bed with his present in the room. He appeared somnolent, though he was responsive to his name and verbal cues with eye opening and following simple directions. His was providing him with water via small (white) straw. Per nursing, pt had difficulty overnight with swallowing water. Nursing switched liquids to thickened liquids overnight, and pills were provided whole in pudding. Appears they have returned to thin liquids this morning. Treatment Liquids Trialed Thin (IDDSI 0) Solids Trialed Regular (IDDSI 7) Administration Type Cup Consecutive Sips,Straw Oral Strategies Upright at 90 degrees Treatment Activities Introduced self and explained role to pt's . Repositioned pt upright; briefly provided family education re upright posture for intake. Consulted with pt 's re ongoing status and intake. Trials of water via small straw consecutive sips. Trials ensure via small straw consecutive sips. Communicated with MD regarding pt swallow status fluctuations. The IDDSI Framework Protocol: IDDSI.1 Assessment Assessment of Improvement Pt presents with decreased energy and mentation this morning. Per , He's not going to do anything. Pt was agreeable to sips of water via small straw sips. He was observed to consume approximately 4oz of water via two sets up consecutive straw sips. No overt s/sx aspiration observed (though silent aspiration cannot be ruled out without an instrumental assessment). Oral acceptance and containment appeared adequate; swallow appeared subjectively to be timely and functional. Briefly explained to pt's that pt's swallow could be more objectively assessed with MBSS . Pt's stated, He's 83 with cancer and pneumonia...no test is going to change anything. Pt apparently did not eat breakfast this morning as he does not have an appetite. Oral motor movement continues to appear generally weakened. Pt had built up utensils present on tray today as requested. This improved self -feeding abilities, but pt was still having difficulty skewering fruit pieces on fork and eventually requested assistance. Most of his entree was still on his plate in one solid piece. Given that the pt has been losing weight, recommended having food cut up into bite sized pieces to eliminate any barriers to PO intake. Pt would likely benefit from OT, but OT orders being withheld based on labs at this time. Pt's swallow status continues to fluctuate nightly as his mentation decreases at night. ACCOUNT COLLECTOR recommends providing only ice chips at night when pt not alert, and provide meds whole or crushed in applesauce /pudding as tolerated. Do not recommend providing thickened liquids when pt's mentation is decreased, as research indicates that thickened liquids may be more likely to be silently aspirated and are more difficult to clear from the airway if aspirated. Recommendations Comment Have solids cut up. Feed only when alert. Liquids Order Thin (IDDSI 0) Diet Order Easy to Chew (IDDSI 7) Medication Recommendations As Tolerated Additional Dietary Needs Chopped Food Treatment Plan Placement Recommendation after Discharge Home with Home Health Appropriate for Continued Therapy Yes: monitor fluctuating status
--- NOTE | 2024-02-08 13:22 | SLP.IPNOTE ---
MULTIMEDIA JOURNALIST recommendations as of 02/08/24 1300: 1. Feed/provide liquids only when alert. Pt's mentation tends to decrease in PM and swallowing function also decreases at this time. Recommend providing only ice chips or small sips of water via teaspoon when alertness is decreased (not via cup/straw). 2. Do not recommend thickening liquids at this time in the absence of an instrumental swallowing assessment (MBS). 3. Provide meds whole or crushed (if cleared with pharmacist) in applesauce/pudding if alertness is decreased. 4. MULTIMEDIA JOURNALIST will continue to monitor for changing swallow status.
--- NOTE | 2024-02-08 13:30 | CM.DPC ---
DCP Continued Reviewed EMR and team rounds for pt status. Per team rounds, pt will continue with IV ABOs and anticipate discharge in 1-2 days. Noted that pt's code status has changed to DNR. Per EMR, pt will be discharged from PT/OT services at this time. Plan: No identified discharge plans at this time. CM team will follow closely as discharge plans and plan of care continue to evolve.
[2024-02-08] MEDS: ACETAMINOPHEN IV 1,000 MG/100 ML VIAL 400 MG IV (16:17)
[2024-02-08] MEDS: POTASSIUM CHLORIDE IN WATER 10 MEQ/100 ML PIGGYBACK 100 MEQ IV ×2 (16:27→17:27)
[2024-02-08] MEDS: predniSONE 20 MG TABLET 40 MG PO (18:27)
[2024-02-08] MEDS: TAMSULOSIN 0.4 MG CAPSULE 0.8 MG PO (20:29)
[2024-02-08] MEDS: PRAVASTATIN 20 MG TABLET PO (20:29)
[2024-02-08] MEDS: PRIMIDONE 50 MG TABLET PO (20:30)
[2024-02-09 03:00] VITALS: O2SAT 96
[2024-02-09 03:29] VITALS: BP 106/61; PULSE 69; RESP 19; TEMP 35.9; O2SAT 96
[2024-02-09 06:26] LABS: Add Manual Diff / Slide Review NO; Basophils Absolute Auto 0 /uL (0-100); Basophils Percent Auto 0.5 % (0-2); Eosinophils Absolute Auto 0 /uL (0-450); Eosinophils Percent Auto 0.2 % (2-4); Hematocrit 31.8 % (41-53); Hemoglobin 10.5 g/dL (13.5-17.5); Lymphocytes Absolute Auto 1200 /uL (1100-4500); Lymphocytes Percent Auto 17.8 % (25-40); Mean Corpuscular Hemoglobin 25.9 PG (26-34); Mean Corpuscular Volume 78.5 fL (80-100); Monocytes Absolute Auto 200 /uL (0-900); Monocytes Percent Auto 2.6 % (3-14); Neutrophils Absolute Auto 5500 /uL (1500-7000); Neutrophils Percent Auto 78.9 % (50-75); Platelet Count 337 X10^3/uL (150-400); Red Blood Cell Count 4.05 X10^6/uL (4.5-5.9); Red Cell Distribution Width 22.1 % (11.6-14.8)
[2024-02-09] MEDS: VANCOMYCIN TROUGH 1 REQUEST MISC (06:41)
[2024-02-09] MEDS: VANCOMYCIN 1,000 MG/200 ML PIGGYBACK 200 MG IV (06:41)
[2024-02-09] MEDS: LEVOTHYROXINE 88 MCG TABLET PO (06:41)
[2024-02-09 06:55] LABS: Anisocytosis 2+; Burr Cells 1+; Microcytosis 1+; Ovalocytes 1+; Platelet Estimate Adequate on smear
[2024-02-09 07:02] LABS: Vancomycin Trough 9.8 ug/mL (10-20)
--- NOTE | 2024-02-09 07:21 | PM.PN.1 ---
Subjective Subjective Interval history: He feels a little better. Still too weak to get up. Discussed with family, they understand and are supportive of hospice at home. Discussed extensively with his oncologist yesterday evening. Poor prognosis and fevers probably all relate to lymphoma. Exam Vital Signs (past 8 hours): - 02/08/24 23:34 02/09/24 03:00 02/09/24 03:29 Temperature 97.4 F L 96.6 F L Pulse Rate 71 69 Respiratory Rate 19 19 Blood Pressure 99/62 106/61 Pulse Oximetry 94 96 96 Oxygen Delivery Method Room Air Oxygen Flow Rate 0 0 0 Oxygen Delivery Method Room Air Oxygen Flow Rate 0 Narrative Exam Narrative: NAD, alert and oriented. Fluent speech.Chronically ill in appearance. Lungs are clear, normal rate and effort. Heart is regular, no murmur gallop or rub. Abdomen is soft, non distended. Extremities are free of edema. Extensive bruising. Objective Labs 02/09/24 06:18 02/08/24 11:50 Labs: Laboratory Results - last 24 hr 02/08/24 02/09/24 11:50 06:18 WBC 8.3 7.0 RBC 3.92 L 4.05 L Hgb 10.2 L 10.5 L Hct 30.7 L 31.8 L MCV 78.4 L 78.5 L MCH 26.2 25.9 L MCHC 33.3 33.0 RDW 22.1 H 22.1 H Plt Count 336 337 Neut % (Auto) 78.9 H Lymph % (Auto) 17.8 L [place] % (Auto) 2.6 L Eos % (Auto) 0.2 L Baso % (Auto) 0.5 Neut # (Auto) 5500 Lymph # (Auto) 1200 [place] # (Auto) 200 Eos # (Auto) 0 Baso # (Auto) 0 Platelet Estimate Adequate on smear RBC Morphology See below Anisocytosis 2+ H Microcytosis 1+ H Ovalocytes 1+ H [place] Cells 1+ H Sodium 131 L Potassium 3.5 Chloride 106 Carbon Dioxide 20 L BUN 18 Creatinine 0.90 Estimated GFR > 60 BUN/Creatinine Ratio 20.0 Glucose 100 Calcium 8.2 L Total Bilirubin 0.4 AST 88 H ALT 68 H Alkaline Phosphatase 58 Total Protein 5.5 L Albumin 2.5 L Globulin 3.0 Albumin/Globulin Ratio 0.8 L Vancomycin Trough 9.8 L PFSH Social History household members: spouse Smoking Status: Former smoker alcohol intake: former Assessment & Plan Assessment & Plan narrative: 1. Sepsis, worse last night with fever.- tachycardic, low BP, with fevers. -He is better. Will continue IV antibiotics. Added Vanco evening of 02/06. . 2. Metabolic encephalopathy, present on admission and improving. 3. CLL- paliative measure/ treatment only, present on admission and stable. 4. Bilateral pneumonia, present on admission and active. Appears to be improving. -Patient was placed on IV cefepime, azithromycin, and Vanco. 5. Urinary retention, active. H/O BPH by history. -Will resume his usual home medications. Philippe catheter will be placed. 1.5L out of bladder with philippe placement. F/up outpatient with urology. 6. Diffuse B-cell lymphoma, present on admission and active. -Continue outpatient follow-up with Oncology. 7. Essential tremor, stable. -Continue primidone. Will cont Abx for now and initiate a hospice referral. Stop labs. Anticipate discharge home with Hospice 1-2 days.
[2024-02-09 08:00] VITALS: BP 105/64; PULSE 66; RESP 16; TEMP 36.1; O2SAT 99
[2024-02-09] MEDS: PRIMIDONE 50 MG TABLET 100 MG PO (08:51)
[2024-02-09] MEDS: ASPIRIN EC 81 MG TABLET PO (08:51)
[2024-02-09] MEDS: APIXABAN 5 MG TABLET PO (08:51)
[2024-02-09] MEDS: predniSONE 20 MG TABLET 40 MG PO (08:51)
[2024-02-09] MEDS: DORZOLAMIDE/TIMOLOL OPHTH 10 ML 1 DROPS EYE-BOTH (08:53)
[2024-02-09] MEDS: VANCOMYCIN PEAK 1 REQUEST MISC (09:00)
[2024-02-09 09:36] LABS: Vancomycin Peak 21.4 ug/mL (20-40)
[2024-02-09] MEDS: CEFEPIME 2 GM in SODIUM CHLORIDE 0.9% 100 ML IV (09:50)
[2024-02-09 12:00] VITALS: BP 112/69; PULSE 69; RESP 16; TEMP 36.4; O2SAT 97
--- NOTE | 2024-02-09 12:31 | CM.DPC ---
Addendum entered by SATISH Aguayo 02/09/24 15:04: SOUVENIR AND NOVELTY MAKER returned call to [facility], [facility] Referrals, 2x - no response and left a vm. Original Note: DCP Continued Reviewed EMR and team rounds for pt status. Per hospitalist, pt status appropriate for hospice and family agreeable to plan for hospice at home. SOUVENIR AND NOVELTY MAKER met with pt and at bedside. Discussed referral sent to [facility], pt and exhibited understanding. SOUVENIR AND NOVELTY MAKER provided [facility] information and notified that [facility] will call her for informational session. Plan: [facility] reviewing referral, awaiting acceptance. CM Team following closely for evolving discharge plans for home with hospice.
--- NOTE | 2024-02-09 15:24 | SLP.IPNOTE ---
Per radha Bautista to d/c ST order as plan is for pt to transition to hospice.
[2024-02-09 20:00] VITALS: BP 128/78; PULSE 81; RESP 17; TEMP 36; O2SAT 94
[2024-02-09] MEDS: TAMSULOSIN 0.4 MG CAPSULE 0.8 MG PO (20:32)
[2024-02-09] MEDS: PRIMIDONE 50 MG TABLET PO (20:32)
[2024-02-10 03:00] VITALS: O2SAT 94
--- NOTE | 2024-02-10 07:27 | PM.PN.1 ---
Subjective Subjective Interval history: Met with patient, and granddaughter as well as [id number]. He is comfortable. He has no questions. And he did request that antibiotics be stopped yesterday. I did fill out a POLST with DNR, comfort measures, no antibiotics or tube feeds. They will sign this. Hospice can open on Tuesday and deliver equipment tomorrow. The plan is to bring him home tomorrow after the bed is delivered. Exam Vital Signs (past 8 hours): - 02/10/24 03:00 Pulse Oximetry 94 Oxygen Delivery Method Room Air Oxygen Delivery Method Room Air Oxygen Flow Rate 0 Narrative Exam Narrative: NAD, alert and oriented. Fluent speech. He is breathing comfortably. He has mild edema of arms. He is some ecchymosis. Objective Labs 02/09/24 06:18 02/08/24 11:50 Labs: Laboratory Results - last 24 hr 02/09/24 08:50 Vancomycin Peak 21.4 PFSH Social History household members: spouse Smoking Status: Former smoker alcohol intake: former Assessment & Plan Assessment & Plan narrative: 1. 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 -this is progressive. Discussed with oncology. Recommendation was to pursue hospice. This is what the patient wants and we are moving towards home with hospice tomorrow, TuesdayFebruary 10. 2. CLL- paliative measure/ treatment only, present on admission and stable. 3. Possible bilateral pneumonia, present on admission and active. Appears to be improving. -stopped all antibiotics based on his request. 4. Urinary retention, active. H/O BPH by history. Per his request, stopped Abx and initiated a hospice referral. Stop labs. Anticipate discharge home with Hospice 1 day.
[2024-02-10] MEDS: ACETAMINOPHEN IV 1,000 MG/100 ML VIAL 400 MG IV (07:43)
[2024-02-10 08:00] VITALS: BP 132/71; PULSE 121; RESP 25; TEMP 39.3; O2SAT 91
--- NOTE | 2024-02-10 12:32 | CM.DPC ---
DCP Continued Reviewed EMR and team rounds for pt status. Per team rounds, pt set to discharge as soon as hospice services are accepted and DME delivered. [employer] spoke with Grant at [facility] and confirmed pt's acceptance for Tuesday, 3.. [employer] provided pt's height and weight for pt DME order. [facility] requested pt's most recent EKG and echocardiogram, sent via fax. POLST form provided to hospitalist who reviewed and signed with pt's family. [employer] met with pt's outside of pt room. Pt's confirmed having informational session with [facility] and DME ordered, to be delivered on Tuesday (time to be confirmed on morning of 3.16). [facility] will open services on Tuesday, 02.11 at 1400. Plan: Pt set to dc on Tuesday afternoon, time pending confirmation of DME delivery to home. BLS Transport to be ordered morning of discharge. CM Team monitoring closely for impending dc needs.
[2024-02-10 19:46] VITALS: TEMP 36.2
[2024-02-11 03:00] VITALS: TEMP 37.9; O2SAT 91
[2024-02-11] MEDS: ACETAMINOPHEN IV 1,000 MG/100 ML VIAL 400 MG IV (03:41)
[2024-02-11 07:00] VITALS: O2SAT 90
--- NOTE | 2024-02-11 07:45 | PM.DS.1 ---
History of Present Illness History of Present Illness Date Patient Seen: 02/06/24 Chief complaint: fever, confusion Narrative: The pt is a 83 yo who was just discharged from our hospital after being treated for pneumonia and returns to the ER by his due to weakness and confusion. The pt was reported to have been doing well with therapy yesterday, 02/05/24 and was discharged home in the afternoon but the states he was just not ready and had difficulty with ambulation once home. She was not available in the room during my interview but she reports to the ER that his fevers at home were 103 F. During my interview she was unable to answer any of my questions or the nurses questions, I do not know what his baseline function is. 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 notes. He was discharged 02/04 with a diagnosis of pneumonia and urinary retention. He is complaining of bilateral hip pain which may relate to his hospital bed. He denies a cough, or shortness a breath. He has had some degree of delirium. He had been here on antibiotics and discharged yesterday for a probable pneumonia. He has a Gonzalez catheter in place which relates to retention. Over a L was removed when the catheter was initially placed. He has been taking Flomax for about the last 2 weeks. He denies new skin rash or lesions. He has been having erratic temperature responses to his new cancer therapy medication. Discharge Providers Provider Date of admission: 02/06/24 01:06 Discharge Date: 02/11/24 Primary care physician: EARL Salgado Consults: 02/06/24 01:17 Consult to Occupational Therapy Evaluate & Treat Comment: Physician Instructions: Evaluate and treat Consult to Physical Therapy Evaluate & Treat Comment: Physician Instructions: Evaluate and Treat 02/06/24 05:16 Consult to Dietitian, Adult Routine Comment: Reason For Exam: severe weight loss 02/06/24 06:17 Consult to Speech Therapy Evaluate & Treat Comment: Physician Instructions: Evaluate and treat Discharge provider: Rajinder Tan DO Summary Hospital Course Discharge Diagnosis: 1. 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 -this is progressive. Discussed with oncology. Recommendation was to pursue hospice. This is what the patient wants and we are moving towards home with hospice which will open on Sunday 02/11 at 1400. 2. CLL- paliative measure/ treatment only, present on admission and stable. 3. Possible bilateral pneumonia, present on admission and active. Appears to be improving. -stopped all antibiotics based on his request. 4. Urinary retention, active. H/O BPH by history. Hospital Course: Admitted for ongoing fevers, weakness. Oncologist recommended hospice, given this was likely due to a progression of his lymphoma. Patient elected for hospice and discharged with hospice to open on 02/11. Exam Vital Signs (past 8 hours): - 02/11/24 03:00 02/11/24 03:00 Temperature 100.3 F H Pulse Oximetry 91 Oxygen Delivery Method Room Air Oxygen Delivery Method Room Air Oxygen Flow Rate 0 Narrative Exam Narrative: NAD, alert and oriented. Fluent speech. He is breathing comfortably. He has mild edema of arms. He is some ecchymosis. Objective Labs 02/09/24 06:18 02/08/24 11:50 PFSH Social History household members: spouse Smoking Status: Former smoker alcohol intake: former Discharge Plan Discharge Plan Patient Disposition: Hospice - Home Nursing Discharge Comment: Scopalamine patch placed 02/11/24. It should be changed every three days. Discharge orders & Medications Prescriptions: New lorazepam [Lorazepam Intensol] 2 mg/mL concentrate 1 mg PO Q4H PRN (Reason: agitation) Qty: 30 0RF morphine 10 mg/5 mL solution 10 mg PO Q6H PRN (Reason: pain) Qty: 100 0RF Continued Lotemax 0.5 % ointment 0.5 ea OP BID Qty: 0 Rx Instructions: each eye levothyroxine 50 MCG tablet 88 mcg PO QAM Qty: 0 primidone 50 mg Tablet 150 mg PO DAILY Rx Instructions: 100 mg in AM, 50 mg at NIGHT latanoprost 0.005 % Drops 1 drp OPHTHALMIC (EYE) BEDTIME cyclosporine [Restasis] 0.05 % Dropperette 1 drp OPHTHALMIC (EYE) BID Eliquis 5 mg tablet 5 mg PO BID carboxymethylcellulose sodium 1 % Dropperette 1 drp ophthalmic (eye) BID Rx Instructions: BOTH EYES Refresh Optive 0.5-0.9 % Drops 1 drp ophthalmic (eye) PRN PRN (Reason: Eye Irritation) Rx Instructions: 4-6 times a day dorzolamide-timolol (PF) [Cosopt (PF)] 2-0.5 % Dropperette 1 drp OPHTHALMIC (EYE) BID Rx Instructions: ON EDROP EACH EYE pravastatin 20 MG tablet 20 mg PO BEDTIME tamsulosin 0.4 mg Capsule 0.8 mg PO BEDTIME Discontinued azithromycin 500 mg tablet 500 mg PO DAILY 1 Days Qty: 1 0RF Rx Instructions: take on 02/05 amoxicillin-pot clavulanate 875-125 mg tablet 1 tab PO BID 4 Days Qty: 8 0RF Rx Instructions: start evening of 02/04 Follow up/Referrals: Carmen Naqvi ARNP [Primary Care Provider] - Visit Report/Discharge Packet Instructions: How to Care for Your Gonzalez Catheter -- Male, How to Prevent Pressure Ulcers, How to Prevent Falls, DI for Muscle Weakness, DI for Prescription Opioid Use Stand Alone Forms: Patient Portal/API, Stroke Signs & Symptoms Discharge Data Primary Care Provider: Carmen Naqvi
[2024-02-11 09:42] VITALS: TEMP 36.4
--- NOTE | 2024-02-11 10:30 | CM.DPC ---
DCP Cont. Reviewed EMR and team rounds for status updates. Called pt's to confirm time for DME delivery today, confirmed it will be between 1:30-3:00pm. Met with bedside with pt's son and Dr. Tan. Updated family that we have a confirmed transport time today for 3:30pm BLS. Notified P[employer] and RN. No further DCP needs identified at this time.
[2024-02-11] MEDS: SCOPOLAMINE 1 PATCH TOP (13:04)
[2024-02-11] MEDS: MORPHINE 4 MG/ML INJ 3 MG IV (14:56)
--- NOTE | 2024-02-11 15:19 | PC.NURSE ---
Addendum entered by Raquel Larson R.N. 02/11/24 17:04: Ambulance crew here, report given. Pt more comfortable now for transport. Pt transported from facility to his home, son followed in his vehicle. Original Note: Readied for d/c to home. bed has been delivered and they have equipment and what they need to care for pt at home. Oldest son is here and discharge instructions were given to him.(Son is an MD and works family practice in [place]) Son questions were answered. Pt's eye drops and belongings were given to son. Discharge packet was given. Questions answered. Pt given morphine at this time per request for the ride home. Pt was bathed and given cath care. Awaiting ambulence to pick pt up.
== END 2024-02-11 15:45 | disposition hospice, home (50) | DRG 871 ==
LOC: ED 22:13 → AC 02-06 02:44
PROVIDERS: Hospitalist; Admitting Provider Internal Medicine; Emergency Provider Emergency Medicine; PCP Registered Nurse; Visit Provider Internal Medicine
DX: A41.9 Sepsis, unspecified organism (principal); E43 Unspecified severe protein-calorie malnutrition; G93.41 Metabolic encephalopathy; J18.9 Pneumonia, unspecified organism; C91.10 Chronic lymphocytic leukemia of B-cell type not having achieved remission; C85.80 Other specified types of non-Hodgkin lymphoma, unspecified site; N40.1 Benign prostatic hyperplasia with lower urinary tract symptoms; R33.8 Other retention of urine; R25.1 Tremor, unspecified; I49.3 Ventricular premature depolarization; R79.89 Other specified abnormal findings of blood chemistry; Z68.23 Body mass index [BMI] 23.0-23.9, adult; Z87.891 Personal history of nicotine dependence; Z51.5 Encounter for palliative care; Z66 Do not resuscitate
CPT/HCPCS: 36415; 70450; 71045; 80053; 80202; 81001; 82550; 83605; 84145; 84484; 85025; 85027; 87040; 87633; 92526; 92610; 93005; 93010; 93307; 94760; 94762; 96365; 97167; 99284; J0136; J0692; J2270